=== PATIENT | male | born 1960 ===

== ENCOUNTER 2023-11-08 13:39 | Outpatient (REF) | payer OTHER, SELFPAY | END 2023-11-08 13:40 | disposition home or self-care (01) | LOC: HO.SH 13:39 | PROVIDERS: Visit Provider Physician Assistant Medical | DX: Z01.118 Encounter for examination of ears and hearing with other abnormal findings (principal); H90.3 Sensorineural hearing loss, bilateral; H93.13 Tinnitus, bilateral | CPT/HCPCS: 92557; 92567 ==

== ENCOUNTER 2025-05-05 11:49 | Outpatient (AMB) | payer OTHER, SELFPAY ==
--- OUTSIDE RECORDS SUMMARY | 2024-09-14 07:30 | XMS_ITS ---
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 Date/Time Encounter Type Encounter Description Reason Provider Source Sep 14, 2024 11:30 AM OFFICE O/P EST HI 40 MIN PRIMARY CARE/MEDICINE ICD-10-CM I10 Essential (primary) hypertension MOBLEY,WILL RENETTA Schmitz [facility] Encounter Template Text not used by MD Assessments - Encounter Diagnoses This section includes the primary and secondary diagnoses documented for the Encounter. Date/Time Primary/Secondary Diagnosis Diagnosis Name Provider Source Sep 14, 2024 12:55 PM PRIMARY Essential (primary) hypertension MOBLEY,WILL RENETTA J [facility] [place] [facility] Sep 14, 2024 12:55 PM SECONDARY Alcohol use, unspecified, uncomplicated MOBLEY,WILL RENETTA J MD [facility] [place] [facility] Sep 14, 2024 12:55 PM SECONDARY Depression, unspecified MOBLEY,WILL RENETTA J MD [facility] [place] [facility] Sep 14, 2024 12:55 PM SECONDARY Gastro-esophageal reflux disease without esophagitis MOBLEY,WILL RENETTA J [facility] [place] [facility] Sep 14, 2024 12:55 PM SECONDARY Hyperlipidemia, unspecified MOBLEY,WILL RENETTA J MD [facility] [place] [facility] Sep 14, 2024 12:55 PM SECONDARY Overweight MOBLEY,WILL RENETTA Schmitz MD [facility] [place] [facility] Sep 14, 2024 12:55 PM SECONDARY Unspecified osteoarthritis, unspecified site MOBLEY,WILL RENETAT Schmitz MD [facility] [place] [facility] Plan of Treatment: Future Appointments (+ 6 months) and Future Tests (+/- 45 days) The Plan of Treatment section includes future care activities for the patient from all [facility]. This section includes future appointments and future orders which are active, pending or scheduled. Future Appointments This section includes appointments that were scheduled to occur 6 months from the date of the Encounter, up to a maximum of 20 appointments. The data comes from all MD treatment facilities. Appointment Date/Time Appointment Type Appointme nt Facility Name Oct 09, 2024 11:00 AM AMBULATORY - PSYCHIATRY MD [facility] [place] [facility] Oct 09, 2024 01:30 PM AMBULATORY - MEDICINE MD C [facility] [place] [facility] Nov 25, 2024 11:30 AM AMBULATORY - MEDICINE MD C [facility] [place] [facility] January 06, 2025 10:00 AM AM[facility]ULATORY - NONE [facility] January 13, 2025 10:00 AM AMB[facility]ATORY - NONE [facility] January 13, 2025 11:30 AM AMBULATORY - MEDICINE MD C [facility] [place] [facility] January 20, 2025 10:00 AM AMBULATORY - NONE [facility] Feb 02, 2025 01:30 PM AMBULATORY - PSYCHIATRY [facility] [place] [facility] Feb 02, 2025 02:30 PM AMBULATORY - MEDICINE MD C [facility] [place] [facility] Feb 03, 2025 10:00 AM AMBULATORY - NONE [facility] Feb 03, 2025 12:00 PM AMBULATORY - MEDICINE MD C [facility] [place] [facility] Feb 10, 2025 10:00 AM AMB[facility]ATORY - NONE [facility] Feb 11, 2025 01:30 PM AMBULATORY - MEDICINE MD C [facility] [place] [facility] Feb 17, 2025 10:00 AM AMBULATORY - NONE [facility] Feb 24, 2025 10:00 AM [facility] - NONE [facility] Feb 25, 2025 03:30 PM AMBULATORY - MEDICINE [facility] Lab Results: +/- 30 days of the encounter This section includes the Chemistry and Hematology Lab Results on record with MD for the patient. Radiology Reports and Pathology Reports are provided separately, in subsequent sections. Lab Results This section contains the Chemistry/Hematology Results that were resulted 30 days before or 30 daysafter the date of the Encounter. Date/Time Source Result Type Result - Unit Interpretation Reference Range Specimen Type Comment Sep 14, 2024 12:09 PM [facility] CBC BLOOD Specimen Type: BLOOD No comment entered. Ordering Provider: NICKOLAS MOBLEY Report Released Date/Time: Sep 08, 2024 08:40 AM Reporting Lab: [address] [address] Performing Lab: [address] [address] WBC 7.11 10*3/uL 4.50-11.00 RBC 3.84 10*6/uL L 4.23-5.66 HGB 13.4 g/dL 12.8-17 HCT 37.8 L 39.2-50.4 MCV 98.4 fL 82-99 MCHC 35.4 g/dL H 30.8-35.1 PLT 259 10*3/uL 140-360 RDW-CV 11.7 L 12.0-16.0 MCH 34.9 pg H 26.2-32.6 Sep 14, 2024 12:09 PM [facility] BASIC METABOLIC PANEL (non-fasting) SERUM Spe cimen Type: SERUM No comment entered. Ordering Provider: NICKOLAS MOBLEY Report Released Date/Time: Sep 08, 2024 08:40 AM Reporting Lab: [address] [address] Performing Lab: [address] [address] UREA NITROGEN 14 mg/dL 7-25 GLUCOSE 121 mg/dL H 65-100 SODIUM 133 mmol/L L 135-145 POTASSIUM 4.3 mmol/L 3.5-5.0 CHLORIDE 95 mmol/L L 100-110 CO2 28 meq/L 20-30 CREATININE, Serum 1.25 mg/dL 0.50-1.40 eGFR(CKD-EPI 2020) 64 mL/min >60 Sep 14, 2024 12:09 PM [facility] LIPID PANEL, NON FASTING SERUM Specimen Type: SERUM No comment entered. Ordering Provider: NICKOLAS MOBLEY Report Released Date/Time: Sep 08, 2024 08:40 AM Reporting Lab: [facility] [address] [address] Performing Lab: [address] [address] CHOLESTEROL 238 mg/dL H TRIGLYCERIDE 106 mg/dL 0-150 LDL calculated 99 mg/dL 0-129 CHOL/HDL 2.0 HDL CHOLESTEROL 118 mg/dL H 40-60 Sep 14, 2024 12:09 PM [facility] PSA SERUM Specimen Type: SERUM No comment entered. Ordering Provider: NICKOLAS MOBLEY Report Released Date/Time: Sep 08, 2024 08:40 AM Reporting Lab: [facility] [address] [address] Performing Lab: [facility] [address] [address] PSA 3.27 ng/mL 0.00-4.00 Sep 14, 2024 12:09 PM [facility] LIVER FUNCTION SERUM Specimen Type: SERUM No comment entered. Ordering Provider: NICKOLAS MOBLEY Report Released Date/Time: Sep 08, 2024 08:40 AM Reporting Lab: [facility] [address] [address] Performing Lab: [address] [address] PROTEIN,TOTAL 8.2 g/dL 6.0-8.3 ALBUMIN 4.0 g/dL 3.5-5.0 ALKALINE PHOSPHATASE 66 U/L 40-150 AST 30 U/L 5-34 ALT 24 U/L BILIRUBIN, TOTAL 0.8 mg/dL 0.2-1.2 Sep 14, 2024 12:09 PM [facility] FERRITIN SERUM Specimen Type: SERUM No comment entered. Ordering Provider: NICKOLAS MOBLEY Report Released Date/Time: Sep 14, 2024 11:45 AM Reporting Lab: [facility] [address] [address] Performing Lab: [facility] [address] [address] FERRITIN 193 ng/mL 20-300 Sep 14, 2024 12:09 PM [facility] IRON & TIBC PANEL SERUM Specimen Type: SERUM No comment entered. Ordering Provider: NICKOLAS MOBLEY Report Released Date/Time: Sep 14, 2024 11:45 AM Reporting Lab: [facility] [address] [address] Performing Lab: [address] [address] TIBC 385 ug/dL 204-475 IRON 168 ug/dL H 40-160 Transferrin Saturation 43.6 20.0-50.0 Transferrin (TRF) 292 mg/dL 200-360 Vital Signs: All taken on the encounter date This section contains inpatient and outpatient Vital Signs collected on the date of the Encounter. Date/Time Temperature Pulse Blood Pressure Respiratory Rate SP02 Pain Height Weight Body Mass Index Source Sep 14, 2024 12:52 PM 148/90 [facility] Sep 14, 2024 11:26 AM 98.1 75 156/100 20 93 5 68 257 39 [facility] Social History: Smoking Status (Most current) and Tobacco Use (All prior to encounter date) This section includes the most current, and the historical, smoking and tobacco- related health factors from the MD facility where the Encounter took place. Current Smoking Status This section includes the most current smoking, or tobacco-related health factor, from the MD facility where the Encounter took place. Date/Time Current Smoking Status Comment Devin melvin Mar 17, 2024 09:29 AM VA-TOBACCO NEVER USED [facility] Advance Directives: All historical and current Section Date Range: From patient's date of to the date document was created. This section includes ALL of a patient's completed or amended VA Advance and Rescinded Directives. The entries below indicate that a directive exists for the patient, but an actual copy is not included with this document. The data comes from all MD facilities. Date Advance Directives Provider Source Apr 15, 2024 ADVANCE DIRECTIVE PATT BATISTA MD [facility] Encounter Notes: All associated encounter notes This section contains the clinical notes associated to the Encounter. Date/Time Encounter Note(s) Provider Source Sep 14, 2024 12:39 PM PRIMARY CARE NURSE PRACTITIONER OUTPATIENT NOTE: LOCAL TITLE: NURSE PRACTITIONER OUTPATIENT NOTE STANDARD TITLE: PRIMARY CARE NURSE PRACTITIONER OUTPATIENT NOTE DATE OF NOTE: SEP 14, 2024@12:39 ENTRY DATE: SEP 14, 2024@12:39:43 AUTHOR: NICKOLAS MOBLEY COSIGNER: URGENCY: STATUS: COMPLETED Chief complaint: Patient is a 64 year old . HPI: Pleasant male here to follow up. We discussed labs, including low sodium, again cautioned about alcohol, encouraged stopping it. He tells me he has reduced the amount he consumes, often going days without it. He was schedule for right hip replacement surgery though being held because of elevated blood pressure. I again explained the impact of alcohol and htn. He is in agreement with consult to CPP. He is also concerned about wt gain, asks about medication assisted wt loss. I advised he would first have to participate in a formal wt loss program, suggested MOVE, he is in agreement with referral. He was following in the community with Dr. Nj, no longer due to loss of insurance. I did write paper rx for omeprazole, atenolol, and lisinopril. Allergies: Patient has answered NKA The following VA and Non-VA meds were reconciled with patient. The patient was educated on the use of the medications including indication and side effects. Active and Recently Outpatient Medications (excluding Supplies): Active Non-VA Medications Status 1) Non-VA ATENOLOL 25MG TAB 25MG BY MOUTH ONCE DAILY ACTIVE Indication: FOR HIGH BLOOD PRESSURE 2) Non-VA BUPROPION HCL 200MG 12HR SA TAB 200MG BY MOUTH ONCE ACTIVE DAILY Indication: FOR DEPRESSION 3) Non-VA ESCITALOPRAM OXALATE 20MG TAB 20MG BY MOUTH ONCE ACTIVE DAILY Indication: FOR MAJOR DEPRESSIVE DISORDER 4) Non-VA LISINOPRIL 10MG TAB 30MG BY MOUTH ONCE DAILY ACTIVE Indication: FOR HIGH BLOOD PRESSURE 5) Non-VA LORAZEPAM 0.5MG TAB 0.5MG BY MOUTH ONCE DAILY ACTIVE NEEDED Indication: FOR ANXIETY 6) Non-VA OMEPRAZOLE 20MG EC CAP 20MG BY MOUTH EVERY MORNING 30 ACTIVE MINUTES BEFORE BREAKFAST Indication: FOR EXCESSIVE PRODUCTION OF STOMACH ACID 7) Non-VA TRAZODONE HCL 100MG TAB 200MG BY MOUTH AT BEDTIME ACTIVE Indication: FOR INSOMNIA ASSOCIATED WITH DEPRESSION Review of Systems: Constitutional: (-)for Fevers, chills, weakness, nights sweats On examination: 98.1 F [36.7 C] (09/14/2024 11:26)156/100 (09/14/2024 11:26)75 (09/14/2024 11:26)20 (09/14/2024 11:26)5 (09/14/2024 11:26)BMI: 39.2257 lb [116.57 kg] (09/14/2024 11:26) is alert and oriented X3 Cardiovasc: 2plus carotids without bruits, no JVD Heart Reguler rate and rhythm NL S1S2 no S3 or murmur Respiration: Normal respiratory effort, lungs clear ABD: Benign normal active bowel sounds no HSM no rebound or referred pain EXT: no clubbing, edema, or cyanosis All diagnostics from past month were reviewed with patient. Assessment/plan: Active problems - Computerized Problem List is the source for the followin. Hypertension - see above 2. Hyperlipidemia - labs today 3. Gastroesophageal reflux disease - stable on ppi 4. Depression - stable on meds, consult to . 5. Osteoarthritis - right hip, see above 6. overweight - see above 7. alcohol - see above Today I spent 40 minutes on some or all of the following: chart review, history, physical examination, treatment planning, education and counseling of the patient/family/career guidance counselor, placing orders, communicating with other health care providers, completing health and wellness screenings (see below) and documentation in the electronic health record. Follow up visit in 6 mos. HTN Assess for Elevated BP>=140/90: Repeat blood pressure: 148/90 Patient referred to [facility] pharmacist for hypertension treatment. Sexual Orientation: The patient thinks of their sexual orientation as: Straight or Heterosexual Medication Reconciliation: Outpatient: Has the patient been taking medications as documented in the EMLR? YES: The patient has been taking medications as documented in the EMLR. Essential Medication List for Review used to complete this medication reconciliation. INCLUDED IN THIS LIST: Alphabetical list of active outpatient prescriptions dispensed from this MD (local) and dispensed from another [facility] or [facility] facility (remote) as well as inpatient orders (local, pending and active), local clinic medications, locally documented non-VA medications, and local prescriptions that have or been discontinued in the past 90 days. - All changes in medications, including all non-VA/Herbal/OTC medications were entered into CPRS. - If there were any medications the patient should no longer take, they were discontinued. - The patient/caregiver was instructed to update this list, discard old lists, and take this list to the next appointment, whether with a VA or non-VA provider. /emiliano/ Nickolas Mobley [facility], BLOCK MAKING MACHINE OPERATOR-, CNL Primary Care Nurse Practitioner Signed: 09/14/2024 12:54 NICKOLAS MOBLEY [facility] Sep 14, 2024 11:33 AM PREVENTIVE MEDICINE NURSING NOTE: LOCAL TITLE: CLINICAL REMINDERS/NURSING STANDARD TITLE: PREVENTIVE MEDICINE NURSING NOTE DATE OF NOTE: SEP 14, 2024@11:33 ENTRY DATE: SEP 14, 2024@11:33:08 AUTHOR: EVAN AGUILAR EXP COSIGNER: URGENCY: STATUS: COMPLETED Influenza Immunization: The patient has received the seasonal influenza vaccine for the current season at another location. Documented: INFLUENZA, UNSPECIFIED FORMULATION Historical Date Administered: Jun 11, 2024 Outside Location: Outside Healthcare Provider Information Source: FROM PATIENT'S RECALL Comment: per statement from vet /emiliano/ Evan Aguilar, Health Muffle Operator MACHINING ENGINEER,PRIMARY CARE Signed: 09/14/2024 11:34 [facility]
--- OUTSIDE RECORDS SUMMARY | 2024-10-09 07:00 | XMS_ITS ---
Author Name [facility] [place] [facility] [place] [facility] [place] Address [address] [place] [id number] Care Team Providers Care Component Lab Tech Name Role Phone JENNY POND Primary Care Provider Unavaila ble Selected Encounter This section includes the information on record at [place] for the Encounter. Date/Time Encounter Type Encounter Description Reason Provider Source Oct 09, 2024 11:00 AM MTMS BY PHARM ADDNatanael [facility] - IND ICD-10-CM F32.A Depression, unspecified RAGUINDIN,JASP ER BRENDON D [facility] Encounter Template Text not used by [place] Assessments - Encounter Diagnoses This section includes the primary and secondary diagnoses documented for the Encounter. Date/Time Primary/Secondary Diagnosis Diagnosis Name Provider Source Oct 13, 2024 04:23 PM PRIMARY Depression, unspecified RAGUINDIN,JASP ER [facility]ENDON D [place] [facility] [place] [facility] Oct 13, 2024 04:23 PM SECONDARY Insomnia, unspecified RAGUINDIN,JASP ER [place] [facility] [place] [facility] Plan of Treatment: Future Appointments (+ 6 months) and Future Tests (+/- 45 days) The Plan of Treatment section includes future care activities for the patient from all [place] treatmentfacilities. This section includes future appointments and future orders which are active, pending or scheduled. Future Appointments This section includes appointments that were scheduled to occur 6 months from the date of the Encounter, up to a maximum of 20 appointments. The data comes from all [place] treatment facilities. Appointment Date/Time Appointment Type Appointme nt Facility Name Nov 25, 2024 11:30 AM [facility] [place] [facility] January 06, 2025 10:00 AM [facility] NONE [facility] January 13, 2025 10:00 AM [facility]ORY [facility] NONE [facility] January 13, 2025 11:30 AM [facility] [place] [facility] January 20, 2025 10:00 AM [facility]ORY [facility] NONE [facility] Feb 02, 2025 01:30 PM [place] [facility] [place] [facility] Feb 02, 2025 02:30 PM [place] [facility] [place] [facility] Feb 03, 2025 10:00 AM [facility]ORY [facility] NONE [facility] Feb 03, 2025 12:00 PM [place] [facility] [place] Feb 10, 2025 10:00 AM [facility]ORY [facility] NONE [facility] Feb 11, 2025 01:30 PM [place] [facility] [place] [facility] Feb 17, 2025 10:00 AM [facility]ORY [facility] NONE [facility] Feb 24, 2025 10:00 AM [facility]ORY - NONE [facility] Feb 25, 2025 03:30 PM [place] [facility] [place] Mar 15, 2025 01:00 PM [place] [facility] [place] Mar 17, 2025 10:00 AM [facility]ORY [facility] NONE [facility] Mar 23, 2025 02:30 PM [place] [facility] [place] [facility] Mar 24, 2025 10:00 AM [facility]ORY [facility] NONE [facility] Mar 24, 2025 01:00 PM [place] [facility] [place] [facility] Mar 31, 2025 10:00 AM AM[facility]ATORY - NONE [facility] Lab Results: +/- 30 days of the encounter This section includes the Chemistry and Hematology Lab Results on record with [place] for the patient. Radiology Reports and Pathology Reports are provided separately, in subsequent sections. Lab Results This section contains the Chemistry/Hematology Results that were resulted 30 days before or 30 daysafter the date of the Encounter. Date/Time Source Result Type Result - Unit Interpretation Reference Range Specimen Type Comment Oct 26, 2024 12:01 AM [facility] OCCULT BLOOD FIT X1 SCREEN (MFP ONLY) FECES S pecimen Type: FECES No comment entered. Ordering Provider: JENNY POND Report Released Date/Time: Sep 16, 2024 12:27 PM Reporting Lab: [address] [address] Performing Lab: [address] [address] OCCULT BLOOD (FIT)#1 OF 1 NEGATIVE NEG Sep 14, 2024 12:09 PM [facility] BASIC METABOLIC PANEL (non-fasting) SERUM Spe cimen Type: SERUM No comment entered. Ordering Provider: JENNY POND Report Released Date/Time: Sep 08, 2024 08:40 AM Reporting Lab: [address] [address] Performing Lab: [address] [address] UREA NITROGEN 14 mg/dL 7-25 GLUCOSE 121 mg/dL H 65-100 SODIUM 133 mmol/L L 135-145 POTASSIUM 4.3 mmol/L 3.5-5.0 CHLORIDE 95 mmol/L L 100-110 CO2 28 meq/L 20-30 CREATININE, Serum 1.25 mg/dL 0.50-1.40 eGFR(CKD-EPI 2020) 64 mL/min >60 Sep 14, 2024 12:09 PM [facility] CBC BLOOD Specimen Type: BLOOD No comment entered. Ordering Provider: JENNY POND Report Released Date/Time: Sep 08, 2024 08:40 AM Reporting Lab: [address] [address] Performing Lab: [address] [address] WBC 7.11 10*3/uL 4.50-11.00 RBC 3.84 10*6/uL L 4.23-5.66 HGB 13.4 g/dL 12.8-17 HCT 37.8 L 39.2-50.4 MCV 98.4 fL 82-99 MCHC 35.4 g/dL H 30.8-35.1 PLT 259 10*3/uL 140-360 RDW-CV 11.7 L 12.0-16.0 MCH 34.9 pg H 26.2-32.6 Sep 14, 2024 12:09 PM [facility] LIPID PANEL, NON FASTING SERUM Specimen Type: SERUM No comment entered. Ordering Provider: JENNY POND Report Released Date/Time: Sep 08, 2024 08:40 AM Reporting Lab: [address] [address] Performing Lab: [address] [address] CHOLESTEROL 238 mg/dL H TRIGLYCERIDE 106 mg/dL 0-150 LDL calculated 99 mg/dL 0-129 CHOL/HDL 2.0 HDL CHOLESTEROL 118 mg/dL H 40-60 Sep 14, 2024 12:09 PM [facility] LIVER FUNCTION SERUM Specimen Type: SERUM No comment entered. Ordering Provider: JENNY POND Report Released Date/Time: Sep 08, 2024 08:40 AM Reporting Lab: [address] [address] Performing Lab: [address] [address] PROTEIN,TOTAL 8.2 g/dL 6.0-8.3 ALBUMIN 4.0 g/dL 3.5-5.0 ALKALINE PHOSPHATASE 66 U/L 40-150 AST 30 U/L 5-34 ALT 24 U/L BILIRUBIN, TOTAL 0.8 mg/dL 0.2-1.2 Sep 14, 2024 12:09 PM [facility] PSA SERUM Specimen Type: SERUM No comment entered. Ordering Provider: JENNY POND Report Released Date/Time: Sep 08, 2024 08:40 AM Reporting Lab: [address] [address] Performing [facility]: [facility] [place] [facility] [address] [facility] [address] PSA 3.27 ng/mL 0.00-4.00 Sep 14, 2024 12:09 PM [facility] FERRITIN SERUM Specimen Type: SERUM No comment entered. Ordering Provider: JENNY POND Report Released Date/Time: Sep 14, 2024 11:45 AM Reporting Lab: [facility] [place] [facility] [address] [facility] [address] Performing Lab: [facility] [address] [facility] [address] FERRITIN 193 ng/mL 20-300 Sep 14, 2024 12:09 PM [facility] IRON & TIBC PANEL SERUM Specimen Type: SERUM No comment entered. Ordering Provider: JENNY POND Report Released Date/Time: Sep 14, 2024 11:45 AM Reporting Lab: [facility] [place] [facility] [address] [facility] [address] Performing Lab: [facility] [place] [facility] [address] [facility] [address] TIBC 385 ug/dL 204-475 IRON 168 ug/dL H 40-160 Transferrin Saturation 43.6 20.0-50.0 Transferrin (TRF) 292 mg/dL 200-360 Vital Signs: All taken on the encounter date This section contains inpatient and outpatient Vital Signs collected on the date of the Encounter. Date/Time Temperature Pulse Blood Pressure Respiratory Rate SP02 Pain Height Weight Body Mass Index Source Oct 09, 2024 01:32 PM 182/110 [facility] [place] [facility] [facility] Oct 09, 2024 01:29 PM 97 186/127 [place] [facility] [place] [facility] Oct 09, 2024 01:25 PM 96 198/98 [facility] [place] [facility] Oct 09, 2024 01:21 PM 94 183/114 [place] [facility] [place] [facility] [facility] Social History: Smoking Status (Most current) and Tobacco Use (All prior to encounter date) This section includes the most current, and the historical, smoking and tobacco- related health factors from the [place] facility where the Encounter took place. Current Smoking Status This section includes the most current smoking, or tobacco-related health factor, from the [place] facility where the Encounter took place. Date/Time Current Smoking Status Comment Facil ity Mar 17, 2024 09:29 AM VA-TOBACCO NEVER USED [facility] Advance Directives: All historical and current Section Date Range: From patient's date of to the date document was created. This section includes ALL of a patient's completed or amended [place] Advance and Rescinded Directives. The entries below indicate that a directive exists for the patient, but an actual copy is not included with this document. The data comes from all [place] facilities. Date Advance Directives Provider Source Apr 15, 2024 ADVANCE DIRECTIVE PATT BATISTA [facility] Encounter Notes: All associated encounter notes This section contains the clinical notes associated to the Encounter. Date/Time Encounter Note(s) Provider Source Oct 09, 2024 11:07 AM MENTAL HEALTH CONSULT: LOCAL TITLE: MENTAL HEALTH CONSULT NOTE STANDARD TITLE: MENTAL HEALTH CONSULT DATE OF NOTE: OCT 09, 2024@11:07 ENTRY DATE: OCT 09, 2024@11:07:19 AUTHOR: DELL THOMASON COSIGNER: URGENCY: STATUS: COMPLETED Program: Clinical Pharmacy Provider/Medication Management Speciality: Mental Health ATTENDED BY: [X] Patient [ ] Spouse/Caregiver LENGTH OF SESSION: 60minutes -=-=-=-=-=-=-=-=-=-=-=-=-= -=-=-=-=-=-=-==-=-=-=-=-=- =-=-=-=-=-=-=-=-=-=-=-=-=- =- Name: CALVIN BOSS IV : December ID: 64yo WHITE MALE -=-=-=-=-=-=-=-=-=-=-=-=-= -=-=-=-=-=-=-==-=-=-=-=-=- =-=-=-=-=-=-=-=-=Subjectiv e- Treating Dx(s): Depression and Insomnia Interview Summary: pt w/out CC upon interview. noted that pt [facility] today is first visit w/ health science writer and reports that he has been doing well on his current regimen. mentions that he has been retired now for 3yrs. med rec completed and updated into non-va med list. main concerns are regarding pending hip replacement surgery that has been postponed d/t high BP which he is now currently working toward improving w/ PC. additionally, because of hip pain, reports difficulty w/ ambulating resulting in weight gain for the past 3-6mo; and that low activity is causing him difficulty w/ sleep. medications reviewed and education provided. noted minimal use of lorazepam, stating it's my last resort , and discussed importance of not taking lorazepam w/ alcohol; to not share this with others; and to keep stored in a safe place. discussed dose reduction and change in formulation of bupropion as this may be contributing to poor sleep and high BP, to which pt agreed. denies AH/VH. denies SI. reports SI ~30yrs ago but denies SA. aware to contact the crisis line should he find himself in a crisis. Mood: okay denies being depressed Sleep: poor recently d/t Apetite: just not hungry during the morning reports the following regarding medications: -N--Y- [ ][X] Adherence/Compliance [X][ ] Adverse Drug Reactions [ ][X] New OTC/Herbal/Supplement(s) - advil PM for pain at night SUBSTANCE USE ASSESSMENT [ ] Denies All [ ] Nicotine [ ] Caffeine [X] Alcohol - vodka drinks 3-4x/night [ ] Cannabis [ ] Other Illicit Substances __ -=-=-=-=-=-=-=-=-=-=-=-=-= -=-=-=-=-=-=-==-=-=-=-=-=- =-=-=-=-=-=-=-=-=-Objectiv e- Mental Status Exam Appearance: [X] Unremarkable [X] Appropriate to season [ ] Neatly groomed [ ] Somewhat disheveled [ ] Other: Behavior Mood/Affect: [X] Appropriate [ ] Irritable [X] Normal [ ] Euphoric [ ] Pleasant [ ] Provocative [ ] Bright [ ] Depressed [ ] Anxious [ ] Frustrated [ ] Anxious [ ] Frustrated [ ] Maintained good eye contact [ ] Restricted [ ] Flat [ ] Other: [ ] Subdued [ ] Unremarkable [ ] Responsive & Congruent w/mood Energy: [ ] Other: [X] Normal [ ] Excessive [ ] Lethargic [ ] Variable Sleep: [ ] Other: [X] Normal [ ] Early awakening [ ] Sleep onset insomnia -N--Y- Orientation to: [ ] Frequent disruption [ ][X] Person [ ][X] Place Speech: [ ][X] Time [X] Normal [ ] Rapid [ ] Loud [ ] Flat [ ] Slow [ ] Soft Stream of thought: [ ] Other: [X] Normal [ ] Confused [ ] Tangential [ ] Derailed Insight/Judgment: [ ] Vague [ ] Repetitive [X] Normal [ ] Impaired [ ] No evidence of thought disorder [ ] No overt psychosis Other cognitive problems: [ ] Denies Flashbacks [X] Cognition intact [ ] Denies AH/VH [X] Logical and Linear [ ] Obsessions [ ] Paranoid/Delusions [X] Memory sufficient for interview [ ] Hallucinations: [ ] None [ ] Visuospatial [ ] Flashbacks: [ ] Attention [ ] Judgment [ ] Other: [ ] Abstraction __ Active problems - Computerized Problem List is the source for the followin. Alcohol intake above recommended sensible limits 2. Exposure to potentially hazardous substance 3. Allergic rhinitis 4. Insomnia 5. Hypertension 6. Hyperlipidemia 7. Gastroesophageal reflux disease 8. Depression 9. Osteoarthritis 10. History of total hip arthroplasty __ ALLERGIES: Patient has answered NKA Active Outpatient Medications (including Supplies): Active Non-VA Medications Status 1) Non-VA [...] ACTIVE Indication: FOR INSOMNIA ASSOCIATED WITH DEPRESSION Active and Recently Outpatient Medications (excluding Supplies): [...] ACTIVE Indication: FOR INSOMNIA ASSOCIATED WITH DEPRESSION Past psychiatric medications include the following: [ ] Per CPRS: n/a [X] Per Patient: - bupropion 12hr SA 200mg bid x25yrs - escitalopram 20mg daily x1yrs, but uncertain whether this has been helpful - trazodone 200mg hs prn but I take it most nights - lorazepam 0.5mg hs prn but I don't take it every night if I don't need it __ Vitals: Ht: 68 in [172.7 cm] (09/14/2024 11:26) Wt: 257 lb [116.57 kg] (09/14/2024 11:26) BMI: 39.2 BP: 148/90 (09/14/2024 12:52) HR: 75 (09/14/2024 11:26) Labs: CHEM 7 TREND LAB CUMULATIVE SELECTED Collection DT Spec GLUCOSE BUN CREATIN Sodium K+/Pot CL CO2 09/14/2024 12:09 SERUM 121 H 14 1.25 133 L 4.3 95 L 28 04/15/2024 14:31 SERUM 109 H 13 1.30 123 L* 5.1 H 88 L 25 LIVER PANEL TREND Collection DT Spec AST ALT T BILI ALK DENNIS T. PROT ALBUMIN 09/14/2024 12:09 SERUM 30 24 0.8 66 8.2 4.0 04/15/2024 14:31 SERUM 51 H 56 H 0.6 62 7.4 4.1 CBC TREND Collection DT Spec WBC RBC HGB HCT MCV MCH PLT 09/14/2024 12:09 BLOOD 7.11 3.84 L 13.4 37.8 L 98.4 34.9 H 259 04/15/2024 14:31 BLOOD 6.17 3.54 L 12.1 L 34.3 L 96.9 34.2 H 248 LIPID PANEL TREND Collection DT Spec CHOL HDL CHO/HDL LDL-c TRIG 09/14/2024 12:09 SERUM 238 H 118 H 2.0 99 106 04/15/2024 14:31 SERUM 178 91 H 2.0 80 34 HEMOGLOBIN A1C TREND Collection DT Spec HGBA1c 04/15/2024 14:31 BLOOD 4.7 EKG: n/a Estimated CrCl (based on IBW): ~58mL/min -=-=-=-=-=-=-=-=-=-=-=-=-= -=-=-=-=-=-=-==-=-=-=-=-=- =-=-=-=-=-=-=-=-=-=-=-=-=- =- ASSESSMENT The following review of all active psychotropic and A[employer] CONSULTANT-active agents is to ensure pharmacotherapy is evaluated for safety and efficacy as they relate to behaviorial and physiological changes and outcomes Depression - bupropion 12hr SA 200mg bid > noted concern for uncontrolled BP; possibly contributing. will trial reduced dose - escitalopram 20mg daily - lorazepam 0.5mg daily prn anxiety Insomnia - trazodone 200mg hs PLAN 1. Pharmacotherapy [ ] No changes [ ] Discontinue: [ ] Initiate: [X] Change the following: reduce/change bupropion to 24hr SA 300mg daily 2. Labs/tests: n/a 3. Consult(s) or Coordination of care: n/a 4. Other: n/a Education was provided to the regarding the above medication(s) risks, benefits, and alternatives; adverse drug reactions; expectations; and instructions for use. Findings/Plan was discussed with the patient and/or caregiver(s) whom provided verbal acknowledgement that the findings/plan was understood. The following counseling was specifically provided: [ ] Lab tests reviewed with patient [X] Instruction for management/treatment and/or follow-up [X] Importance of compliance with chosen treatment options [X] Risk Factor Reduction [ ] Other: RTC Interval: every 8-12weeks Next Apt: tbd Henrietta was provided health science writer's contact information and instructed to contact health science writer as needed for any changes to scheduling or concerns otherwise. is aware of actions to take if they feel unsafe, including calling the 's Crisis Line (#[phone]); calling 911; or going to the nearest urgent care or emergency room. The is also aware of how to contact the clinic should the require additional services prior to the next appointment. Time spent on chart review, session, and documentation: 60minutes /es/ Dell Thomason PharmD Clinical Pharmacist Practitioner Signed: 10/14/2024 08:38 DELL THOMASON [place] [facility]
--- OUTSIDE RECORDS SUMMARY | 2024-10-09 09:30 | XMS_ITS ---
Author Name [facility] Organization [facility] [place] Address [address] [place] [id number] Care Team Providers Care House Visitor Name Role Phone JENNY POND Primary Care Provider Unavaila ble Selected Encounter This section includes the information on record at [place] for the Encounter. Date/Time Encounter Type Encounter Description Reason Provider Source Oct 09, 2024 01:30 PM MTMS BY PHARM ADDL 15 MIN CLINICAL PHARMACY ICD-10-CM I10 Essential (primary) hypertension HUY MCADAMS Zach Encounter Template Text not used by [place] Assessments - Encounter Diagnoses This section includes the primary and secondary diagnoses documented for the Encounter. Date/Time Primary/Secondary Diagnosis Diagnosis Name Provider Source Oct 09, 2024 03:05 PM PRIMARY Essential (primary) hypertension HYU MCADAMS [facility] Plan of Treatment: Future Appointments (+ 6 months) and Future Tests (+/- 45 days) The Plan of Treatment section includes future care activities for the patient from all [place] treatmentfacilities. This section includes future appointments and future orders which are active, pending or scheduled. Future Appointments This section includes appointments that were scheduled to occur 6 months from the date of the Encounter, up to a maximum of 20 appointments. The data comes from all [place] treatment facilities. Appointment Date/Time Appointment Type Appointme nt Facility Name Nov 25, 2024 11:30 AM AMBULATORY - MEDICINE [facility] January 06, 2025 10:00 AM AMBULATORY - NONE [facility] January 13, 2025 10:00 AM AMBULATORY - NONE [facility] January 13, 2025 11:30 AM [facility] [place] [facility] January 20, 2025 10:00 AM AMBULATORY - NONE [facility] Feb 02, 2025 01:30 PM AMBULATORY - PSYCHIATRY [facility] [place] [facility] Feb 02, 2025 02:30 PM AMBULATORY [facility] MEDICINE [facility] [place] [facility] Feb 03, 2025 10:00 AM AMBULATORY - NONE [facility] Feb 03, 2025 12:00 PM [facility]ULATORY [facility] [place] [facility] Feb 10, 2025 10:00 AM AMBULATORY - NONE [facility] Feb 11, 2025 01:30 PM AMBULATORY - MEDICINE [facility] [place] [facility] Feb 17, 2025 10:00 AM AMBULATORY - NONE [facility] Feb 24, 2025 10:00 AM AMBULATORY - NONE [facility] Feb 25, 2025 03:30 PM AMBULATORY - MEDICINE [facility] [place] [facility] Mar 15, 2025 01:00 PM AMBULATORY - MEDICINE [facility] [place] [facility] Mar 17, 2025 10:00 AM AMBULATORY - NONE [facility] Mar 23, 2025 02:30 PM AMBULATORY - PS[facility]CHIATRY [facility] [place] [facility] Mar 24, 2025 10:00 AM AMBULATORY - NONE [facility] Mar 24, 2025 01:00 PM AMBULATORY - MEDICINE [facility] [place] [facility] Mar 31, 2025 10:00 AM AMBULATORY - NONE [facility] Lab Results: +/- 30 days of the encounter This section includes the Chemistry and Hematology Lab Results on record with [place] for the patient. Radiology Reports and Pathology Reports are provided separately, in subsequent sections. Lab Results This section contains the Chemistry/Hematology Results that were resulted 30 days before or 30 daysafter the date of the Encounter. Date/Time Source Result Type Result - Unit Interpretation Reference Range Specimen Type Comment Oct 26, 2024 12:01 AM [facility] [place] [facility] OCCULT BLOOD FIT X1 SCREEN (MFP ONLY) FECES S pecimen Type: FECES No comment entered. Ordering Provider: JENNY POND Report Released Date/Time: Sep 16, 2024 12:27 PM Reporting Lab: [address] [address] Performing Lab: [address] [address] OCCULT BLOOD (FIT)#1 OF 1 NEGATIVE NEG Sep 14, 2024 12:09 PM [facility] BASIC METABOLIC PANEL (non-fasting) SERUM Spe cimen Type: SERUM No comment entered. Ordering Provider: JENNY POND Report Released Date/Time: Sep 08, 2024 08:40 AM Reporting Lab: [address] [address] Performing Lab: [address] [address] UREA NITROGEN 14 mg/dL 7-25 GLUCOSE 121 mg/dL H 65-100 SODIUM 133 mmol/L L 135-145 POTASSIUM 4.3 mmol/L 3.5-5.0 CHLORIDE 95 mmol/L L 100-110 CO2 28 meq/L 20-30 CREATININE, Serum 1.25 mg/dL 0.50-1.40 eGFR(CKD-EPI 2020) 64 mL/min >60 Sep 14, 2024 12:09 PM [facility] CBC BLOOD Specimen Type: BLOOD No comment entered. Ordering Provider: JENNY POND Report Released Date/Time: Sep 08, 2024 08:40 AM Reporting Lab: [address] [address] Performing Lab: [address] [address] WBC 7.11 10*3/uL 4.50-11.00 RBC 3.84 10*6/uL L 4.23-5.66 HGB 13.4 g/dL 12.8-17 HCT 37.8 L 39.2-50.4 MCV 98.4 fL 82-99 MCHC 35.4 g/dL H 30.8-35.1 PLT 259 10*3/uL 140-360 RDW-CV 11.7 L 12.0-16.0 MCH 34.9 pg H 26.2-32.6 Sep 14, 2024 12:09 PM [facility] LIPID PANEL, NON FASTING SERUM Specimen Type: SERUM No comment entered. Ordering Provider: JENNY POND Report Released Date/Time: Sep 08, 2024 08:40 AM Reporting Lab: [facility] [address] [facility] [address] Performing Lab: [address] [address] CHOLESTEROL 238 mg/dL H TRIGLYCERIDE 106 mg/dL 0-150 LDL calculated 99 mg/dL 0-129 CHOL/HDL 2.0 HDL CHOLESTEROL 118 mg/dL H 40-60 Sep 14, 2024 12:09 PM [facility] LIVER FUNCTION SERUM Specimen Type: SERUM No comment entered. Ordering Provider: JENNY POND Report Released Date/Time: Sep 08, 2024 08:40 AM Reporting Lab: [address] [address] Performing Lab: [address] [address] PROTEIN,TOTAL 8.2 g/dL 6.0-8.3 ALBUMIN 4.0 g/dL 3.5-5.0 ALKALINE PHOSPHATASE 66 U/L 40-150 AST 30 U/L 5-34 ALT 24 U/L BILIRUBIN, TOTAL 0.8 mg/dL 0.2-1.2 Sep 14, 2024 12:09 PM [facility] PSA SERUM Specimen Type: SERUM No comment entered. Ordering Provider: JENNY POND Report Released Date/Time: Sep 08, 2024 08:40 AM Reporting Lab: [address] [address] Performing Lab: [address] [address] PSA 3.27 ng/mL 0.00-4.00 Sep 14, 2024 12:09 PM [facility] FERRITIN SERUM Specimen Type: SERUM No comment entered. Ordering Provider: JENNY POND Report Released Date/Time: Sep 14, 2024 11:45 AM Reporting Lab: [facility] [address] [facility] [address] Performing Lab: [facility] [address] [facility] [address] FERRITIN 193 ng/mL 20-300 Sep 14, 2024 12:09 PM [facility] IRON & TIBC PANEL SERUM Specimen Type: SERUM No comment entered. Ordering Provider: JENNY POND Report Released Date/Time: Sep 14, 2024 11:45 AM Reporting Lab: [facility] [address] [facility] [address] Performing Lab: [facility] [address] [facility] [address] TIBC 385 ug/dL 204-475 IRON 168 ug/dL H 40-160 Transferrin Saturation 43.6 20.0-50.0 Transferrin (TRF) 292 mg/dL 200-360 Vital Signs: All taken on the encounter date This section contains inpatient and outpatient Vital Signs collected on the date of the Encounter. Date/Time Temperature Pulse Blood Pressure Respiratory Rate SP02 Pain Height Weight Body Mass Index Source Oct 09, 2024 01:32 PM 182/110 [facility] [place] [facility] Oct 09, 2024 01:29 PM 97 186/127 [facility] [place] [facility] Oct 09, 2024 01:25 PM 96 198/98 [facility] [place] [facility] Oct 09, 2024 01:21 PM 94 183/114 [facility] [place] [facility] Social History: Smoking Status (Most current) and Tobacco Use (All prior to encounter date) This section includes the most current, and the historical, smoking and tobacco- related health factors from the [place] facility where the Encounter took place. Current Smoking Status This section includes the most current smoking, or tobacco-related health factor, from the [place] facility where the Encounter took place. Date/Time Current Smoking Status Comment Facil ity Mar 17, 2024 09:29 AM VA-TOBACCO NEVER USED [facility] Advance Directives: All historical and current Section Date Range: From patient's date of to the date document was created. This section includes ALL of a patient's completed or amended [place] Advance and Rescinded Directives. The entries below indicate that a directive exists for the patient, but an actual copy is not included with this document. The data comes from all [place] facilities. Date Advance Directives Provider Source Apr 15, 2024 ADVANCE DIRECTIVE PATT [facility]ISTA [facility] Encounter Notes: All associated encounter notes This section contains the clinical notes associated to the Encounter. Date/Time Encounter Note(s) Provider Source Oct 09, 2024 03:06 PM ADDENDUM: LOCAL TITLE: Addendum STANDARD TITLE: ADDENDUM DATE OF NOTE: OCT 09, 2024@15:06:11 ENTRY DATE: OCT 09, 2024@15:06:12 AUTHOR: HUY MCADAMS EXP COSIGNER: URGENCY: STATUS: COMPLETED Will ask AMSA to please schedule patient for: [X] [facility] PHARM PACT 3 RTC order placed. Appointment Length: _30__ minutes. 11/25/24 @1130 Thank you! /pascual MCADAMS PHARMD,[facility] CLINICAL PHARMACY PRACTITIONER Signed: 10/09/2024 15:06 Receipt Acknowledged By: 10/12/2024 07:57 /es/ CARA CARDOSO ADVANCED STONE OPERATOR --- Original Document --- 10/09/24 CONSULT REPORT/PHARMACY: CALVIN RE MALIK BOSS, 64 yo WHITE MALE, presents for [id number] initial visit for htn management. Today, pt reports HTN for 25 years, then took meds for years and never had issues with elevated numbers. In July he planned to have hip surgery which was cancelled d/t elevated BP. He drinks almost daily at bars, never at home. When asked about reducing alcohol use pt responded I'm an alcoholic and I can't quit . He notes his daughter and grandkids moved in recently, so a bit busy in his household. He came to this visit after seeing MH provider. He denies any blurred vision, chest discomfort, headache, shortness of breath,or any other current issues. He seems anxious when asked questions about his alcohol usage and in discussion of his previous low sodium level. Current htn medications: - lisinopril 10 mg increased to 30 mg in July qPM - atenolol 25 mg qPM Medication Adherence: - never misses Headaches:denies Chest pain:denies SOB:sometimes just sitting - misses breath- experiecing for a few months- thinks weight related. SOB upon exertion: sometimes Dizziness:denies Frequency of urination: twice Diet Patterns: patient eats on avg. 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[employer] Personal Goals: SMBP: 10/09/24: 170/112 SMBP assessment: above goal Allergies/ADR: Patient has answered NKA Active and Recently Outpatient Medications (including Supplies): Active Outpatient Medications Status 1) BUPROPION HCL 300MG 24HR SA TAB TAKE ONE TABLET BY MOUTH ACTIVE ONCE DAILY Indication: FOR MAJOR DEPRESSIVE DISORDER 2) ESCITALOPRAM OXALATE 20MG TAB TAKE ONE TABLET BY MOUTH ONCE ACTIVE DAILY FOR MOOD/DEPRESSION Indication: FOR MAJOR DEPRESSIVE DISORDER 3) TRAZODONE HCL 100MG TAB TAKE TWO TABLETS BY MOUTH AT BEDTIME ACTIVE Indication: FOR MAJOR DEPRESSIVE DISORDER Active Non-VA Medications Status 1) Non-VA ATENOLOL 25MG TAB 25MG BY MOUTH ONCE DAILY ACTIVE Indication: FOR HIGH BLOOD PRESSURE 2) Non-VA IBUPROFEN TAB ADVIL PM BY MOUTH NEEDED ACTIVE 3) Non-VA LISINOPRIL 10MG TAB 30MG BY MOUTH ONCE DAILY ACTIVE Indication: FOR HIGH BLOOD PRESSURE 4) Non-VA LORAZEPAM 0.5MG TAB 0.5MG BY MOUTH ONCE DAILY ACTIVE NEEDED Indication: FOR ANXIETY 5) Non-VA MULTIVITAMIN CAP/TAB 1 TABLET BY MOUTH ACTIVE 6) Non-VA OMEPRAZOLE 20MG EC CAP 20MG BY MOUTH EVERY MORNING 30 ACTIVE MINUTES BEFORE BREAKFAST Indication: FOR EXCESSIVE PRODUCTION OF STOMACH ACID 7) Non-VA OTHER CAP/TAB ARTICHOKE 800MG BY MOUTH ACTIVE 8) Non-VA OTHER CAP/TAB SUPER BEETS BY MOUTH ACTIVE 9) Non-VA OTHER CAP/TAB SUPER FRUIT/VEGGIES BY MOUTH ACTIVE 10) Non-VA VITAMIN B COMPLEX CAP 1 CAPSULE BY MOUTH ACTIVE Inactive Non-VA Medications Status 1) Non-VA BUPROPION HCL 200MG 12HR SA TAB 200MG BY MOUTH ONCE DISCONTINUED DAILY Indication: FOR DEPRESSION 2) Non-VA BUPROPION HCL 200MG 12HR SA TAB 200MG BY MOUTH TWICE DISCONTINUED DAILY Indication: FOR DEPRESSION 3) Non-VA ESCITALOPRAM OXALATE 20MG TAB 20MG BY MOUTH ONCE DISCONTINUED DAILY Indication: FOR MAJOR DEPRESSIVE DISORDER 4) Non-VA LISINOPRIL 5MG TAB 5MG BY MOUTH ONCE DAILY DISCONTINUED Indication: FOR HIGH BLOOD PRESSURE 5) Non-VA TRAZODONE HCL 100MG TAB 200MG BY MOUTH AT BEDTIME DISCONTINUED Indication: FOR INSOMNIA ASSOCIATED WITH DEPRESSION 18 Total Medications Labs: CHEM 7 TREND LAB CUMULATIVE SELECTED Collection DT Spec GLUCOSE BUN CREATIN Sodium K+/Pot CL CO2 09/14/2024 12:09 SERUM 121 H 14 1.25 133 L 4.3 95 L 28 04/15/2024 14:31 SERUM 109 H 13 1.30 123 L* 5.1 H 88 L 25 LAB CUMULATIVE SELECTED 2 No selection items chosen for this component. CHEM 7 Results Collection DT Spec Sodium K+/Pot CL CO2 GLUCOSE BUN 09/14/2024 12:09 SERUM 133 L 4.3 95 L 28 121 H 14 04/15/2024 14:31 SERUM 123 L* 5.1 H 88 L 25 109 H 13 eGFR CKD-EPI 202009/14/24 12:09 64 SERUM LIVER PANEL TREND Collection DT Spec AST ALT T BILI ALK DENNIS T. PROT ALBUMIN 09/14/2024 12:09 SERUM 30 24 0.8 66 8.2 4.0 04/15/2024 14:31 SERUM 51 H 56 H 0.6 62 7.4 4.1 HEMOGLOBIN A1C TREND Collection DT Spec HGBA1c 04/15/2024 14:31 BLOOD 4.7 LIPID PANEL TREND Collection DT Spec CHOL HDL CHO/HDL LDL-c TRIG 09/14/2024 12:09 SERUM 238 H 118 H 2.0 99 106 04/15/2024 14:31 SERUM 178 91 H 2.0 80 34 Vitals: Ht: 68 in [172.7 cm] (09/14/2024 11:26) Wt: 257 lb [116.57 kg] (09/14/2024 11:26) BMI: BMI: 39.2 ASSESSMENT: Goal BP = <130/80 mmHg In office BP readings: SBP DBP HR 183 114 94 198 98 96 186 127 97 182 110 Manual Average 187 112 96 PLAN:Pt has elevated BP, possibly more increased at the moment due to nature of office visit and discussion of alcohol use. Encouraged to decrease alcohol use. Reviewed risks of excessive alcohol use and low sodium. Reviewed options at [place] to discuss and work on alcohol use with provider when pt is ready. Reviewed healthy eating. Reviewed proper BP technique. Recommended pt to contact CPP within 2 weeks if BP remains elevated, direct ext provided. Reviewed warning signs to seek ER or Urgent services. Pt declines picking up medication today, although CPP advised it would be in his best interest to do so. Pt requests to be seen in office in about 6 weeks. - Medication management: - CONTINUE - lisinopril 10 mg increased to 30 mg in July qPM -CONTINUE - atenolol 25 mg qPM -INITIATE - amlodipine 5 mg qAM - Continue to SMBP- pt to check daily - Healthy dietary and lifestyle modifications encouraged - Labs:PRN EDUCATION -A shared decision-making approach was used in the development of this plan, involving the , clinician, and any caregivers present. The was provided the opportunity express questions or concerns, and the plan was adjusted as needed to address these concerns. -Reviewed with any new medications, changes to the medication list, education, and plan from today's visit. Patient (and/or caregiver) verbalized understanding of the plan, including possible known risks and benefits, and had no additional questions. RTC:11/25/24 @1130 Time Spent:45 mins PBM PharmD Pharmacotherapy Rem V12: PHARMACIST INTERVENTIONS: HYPERTENSION Medication Intervention(s) Initiate new medication /emiliano/ HUY MCADAMS PHARMD,[facility] CLINICAL PHARMACY PRACTITIONER Signed: 10/09/2024 15:06 HUY MCADAMS [facility] [place] [facility] Oct 09, 2024 01:01 PM PHARMACY CONSULT: LOCAL TITLE: CONSULT REPORT/PHARMACY STANDARD TITLE: PHARMACY CONSULT DATE OF NOTE: OCT 09, 2024@13:01 ENTRY DATE: OCT 09, 2024@13:01:53 AUTHOR: HUY MCADAMS EXP COSIGNER: URGENCY: STATUS: COMPLETED CONSULT REPORT/PHARMACY Has ADDENDA CALVIN BOSS, 64 yo WHITE MALE, presents for [id number] initial visit for htn management. Today, pt reports HTN for 25 years, then took meds for years and never had issues with elevated numbers. In July he planned to have hip surgery which was cancelled d/t elevated BP. He drinks almost daily at bars, never at home. When asked about reducing alcohol use pt responded I'm an alcoholic and I can't quit . He notes his daughter and grandkids moved in recently, so a bit busy in his household. He came to this visit after seeing MH provider. He denies any blurred vision, chest discomfort, headache, shortness of breath,or any other current issues. He seems anxious when asked questions about his alcohol usage and in discussion of his previous low sodium level. Current htn medications: - lisinopril 10 mg increased to 30 mg in July qPM - atenolol 25 mg qPM Medication Adherence: - never misses Headaches:denies Chest pain:denies SOB:sometimes just sitting - misses breath- experiecing for a few months- thinks weight related. SOB upon exertion: sometimes Dizziness:denies Frequency of urination: twice Diet Patterns: patient eats on avg. 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[employer] Personal Goals: SMBP: 10/09/24: 170/112 SMBP assessment: above goal Allergies/ADR: Patient has answered NKA Active and Recently Outpatient Medications (including Supplies): Active Outpatient Medications Status 1) BUPROPION HCL 300MG 24HR SA TAB TAKE ONE TABLET BY MOUTH ACTIVE ONCE DAILY Indication: FOR MAJOR DEPRESSIVE DISORDER 2) ESCITALOPRAM OXALATE 20MG TAB TAKE ONE TABLET BY MOUTH ONCE ACTIVE DAILY FOR MOOD/DEPRESSION Indication: FOR MAJOR DEPRESSIVE DISORDER 3) TRAZODONE HCL 100MG TAB TAKE TWO TABLETS BY MOUTH AT BEDTIME ACTIVE Indication: FOR MAJOR DEPRESSIVE DISORDER Active Non-VA Medications Status 1) Non-VA ATENOLOL 25MG TAB 25MG BY MOUTH ONCE DAILY ACTIVE Indication: FOR HIGH BLOOD PRESSURE 2) Non-VA IBUPROFEN TAB ADVIL PM BY MOUTH NEEDED ACTIVE 3) Non-VA LISINOPRIL 10MG TAB 30MG BY MOUTH ONCE DAILY ACTIVE Indication: FOR HIGH BLOOD PRESSURE 4) Non-VA LORAZEPAM 0.5MG TAB 0.5MG BY MOUTH ONCE DAILY ACTIVE NEEDED Indication: FOR ANXIETY 5) Non-VA MULTIVITAMIN CAP/TAB 1 TABLET BY MOUTH ACTIVE 6) Non-VA OMEPRAZOLE 20MG EC CAP 20MG BY MOUTH EVERY MORNING 30 ACTIVE MINUTES BEFORE BREAKFAST Indication: FOR EXCESSIVE PRODUCTION OF STOMACH ACID 7) Non-VA OTHER CAP/TAB ARTICHOKE 800MG BY MOUTH ACTIVE 8) Non-VA OTHER CAP/TAB SUPER BEETS BY MOUTH ACTIVE 9) Non-VA OTHER CAP/TAB SUPER FRUIT/VEGGIES BY MOUTH ACTIVE 10) Non-VA VITAMIN B COMPLEX CAP 1 CAPSULE BY MOUTH ACTIVE Inactive Non-VA Medications Status 1) Non-VA BUPROPION HCL 200MG 12HR SA TAB 200MG BY MOUTH ONCE DISCONTINUED DAILY Indication: FOR DEPRESSION 2) Non-VA BUPROPION HCL 200MG 12HR SA TAB 200MG BY MOUTH TWICE DISCONTINUED DAILY Indication: FOR DEPRESSION 3) Non-VA ESCITALOPRAM OXALATE 20MG TAB 20MG BY MOUTH ONCE DISCONTINUED DAILY Indication: FOR MAJOR DEPRESSIVE DISORDER 4) Non-VA LISINOPRIL 5MG TAB 5MG BY MOUTH ONCE DAILY DISCONTINUED Indication: FOR HIGH BLOOD PRESSURE 5) Non-VA TRAZODONE HCL 100MG TAB 200MG BY MOUTH AT BEDTIME DISCONTINUED Indication: FOR INSOMNIA ASSOCIATED WITH DEPRESSION 18 Total Medications Labs: CHEM 7 TREND LAB CUMULATIVE SELECTED Collection DT Spec GLUCOSE BUN CREATIN Sodium K+/Pot CL CO2 09/14/2024 12:09 SERUM 121 H 14 1.25 133 L 4.3 95 L 28 04/15/2024 14:31 SERUM 109 H 13 1.30 123 L* 5.1 H 88 L 25 LAB CUMULATIVE SELECTED 2 No selection items chosen for this component. CHEM 7 Results Collection DT Spec Sodium K+/Pot CL CO2 GLUCOSE BUN 09/14/2024 12:09 SERUM 133 L 4.3 95 L 28 121 H 14 04/15/2024 14:31 SERUM 123 L* 5.1 H 88 L 25 109 H 13 eGFR CKD-EPI 202009/14/24 12:09 64 SERUM LIVER PANEL TREND Collection DT Spec AST ALT T BILI ALK DENNIS T. PROT ALBUMIN 09/14/2024 12:09 SERUM 30 24 0.8 66 8.2 4.0 04/15/2024 14:31 SERUM 51 H 56 H 0.6 62 7.4 4.1 HEMOGLOBIN A1C TREND Collection DT Spec HGBA1c 04/15/2024 14:31 BLOOD 4.7 LIPID PANEL TREND Collection DT Spec CHOL HDL CHO/HDL LDL-c TRIG 09/14/2024 12:09 SERUM 238 H 118 H 2.0 99 106 04/15/2024 14:31 SERUM 178 91 H 2.0 80 34 Vitals: Ht: 68 in [172.7 cm] (09/14/2024 11:26) Wt: 257 lb [116.57 kg] (09/14/2024 11:26) BMI: BMI: 39.2 ASSESSMENT: Goal BP = <130/80 mmHg In office BP readings: SBP DBP HR 183 114 94 198 98 96 186 127 97 182 110 Manual Average 187 112 96 PLAN:Pt has elevated BP, possibly more increased at the moment due to nature of office visit and discussion of alcohol use. Encouraged to decrease alcohol use. Reviewed risks of excessive alcohol use and low sodium. Reviewed options at [place] to discuss and work on alcohol use with provider when pt is ready. Reviewed healthy eating. Reviewed proper BP technique. Recommended pt to contact CPP within 2 weeks if BP remains elevated, direct ext provided. Reviewed warning signs to seek ER or Urgent services. Pt declines picking up medication today, although CPP advised it would be in his best interest to do so. Pt requests to be seen in office in about 6 weeks. - Medication management: - CONTINUE - lisinopril 10 mg increased to 30 mg in July qPM -CONTINUE - atenolol 25 mg qPM -INITIATE - amlodipine 5 mg qAM - Continue to SMBP- pt to check daily - Healthy dietary and lifestyle modifications encouraged - Labs:PRN EDUCATION -A shared decision-making approach was used in the development of this plan, involving the , clinician, and any caregivers present. The [place] was provided the opportunity express questions or concerns, and the plan was adjusted as needed to address these concerns. -Reviewed with any new medications, changes to the medication list, education, and plan from today's visit. Patient (and/or caregiver) verbalized understanding of the plan, including possible known risks and benefits, and had no additional questions. RTC:11/25/24 @1130 Time Spent:45 mins PBM PharmD Pharmacotherapy Rem V12: PHARMACIST INTERVENTIONS: HYPERTENSION Medication Intervention(s) Initiate new medication /pascual MCADAMS PHARMD, [facility] CLINICAL PHARMACY PRACTITIONER Signed: 10/09/2024 15:06 10/09/2024 ADDENDUM STATUS: COMPLETED Will ask AMSA to please schedule patient for: [X] [facility] PHARM PACT 3 RTC order placed. Appointment Length: _30__ minutes. 11/25/24 @1130 Thank you! /pascual MCADAMS PHARMD, [facility] CLINICAL PHARMACY PRACTITIONER Signed: 10/09/2024 15:06 Receipt Acknowledged By: * AWAITING SIGNATURE * BRIGITTE HOOVER JODI A [facility]
--- OUTSIDE RECORDS SUMMARY | 2024-11-25 07:30 | XMS_ITS | Encounter Summary ---
Author Name [facility] [place] [facility] [place] Address [address] [place] [id number] Care Team Providers Care Concrete Tester Name Role Phone JENNY POND Primary Care Provider Unavaila ble Selected Encounter This section includes the information on record at [place] for the Encounter. Date/Time Encounter Type Encounter Description Reason Provider Source Nov 25, 2024 11:30 AM MTMS BY PHARM ADDL 15 MIN CLINICAL PHARMACY ICD-10-CM I10 Essential (primary) hypertension HUY MCADAMS Zach Encounter Template Text not used by [place] Assessments - Encounter Diagnoses This section includes the primary and secondary diagnoses documented for the Encounter. Date/Time Primary/Secondary Diagnosis Diagnosis Name Provider Source Nov 25, 2024 04:13 PM PRIMARY Essential (primary) hypertension HUY MCADAMS [facility] Plan of Treatment: Future Appointments (+ 6 months) and Future Tests (+/- 45 days) The Plan of Treatment section includes future care activities for the patient from all [place] treatmentfacilities. This section includes future appointments and future orders which are active, pending or scheduled. Future Appointments This section includes appointments that were scheduled to occur 6 months from the date of the Encounter, up to a maximum of 20 appointments. The data comes from all [place] treatment facilities. Appointment Date/Time Appointment Type Appointme nt Facility Name January 06, 2025 10:00 AM [facility] January 13, 2025 10:00 AM [facility] January 13, 2025 11:30 AM [facility] [place] [facility] January 20, 2025 10:00 AM [facility]ORY [facility] NONE [facility] Feb 02, 2025 01:30 PM AMBULATORY - PS[facility]CHIATRY [facility] [place] [facility] Feb 02, 2025 02:30 PM AM[facility]ORY [facility] [place] [facility] Feb 03, 2025 10:00 AM [facility]ORY [facility] NONE [facility] Feb 03, 2025 12:00 PM [facility] [place] [facility] Feb 10, 2025 10:00 AM [facility]ORY [facility] NONE [facility] Feb 11, 2025 01:30 PM [facility] [place] [facility] Feb 17, 2025 10:00 AM AM[facility]ORY - NONE [facility] Feb 24, 2025 10:00 AM AM[facility]ORY - NONE [facility] Feb 25, 2025 03:30 PM AM[facility]ORY [facility] [place] [facility] Mar 15, 2025 01:00 PM AMBULATORY - [facility] [place] [facility] Mar 17, 2025 10:00 AM AM[facility]ORY - NONE [facility] Mar 23, 2025 02:30 PM AMBULATORY - PS[facility] [place] [facility] Mar 24, 2025 10:00 AM AMB[facility]ATORY - NONE [facility] Mar 24, 2025 01:00 PM AMB[facility]ORY - [facility] [place] [facility] Mar 31, 2025 10:00 AM AM[facility]ORY - NONE [facility] Mar 31, 2025 01:00 PM AMBULATORY - NONE [facility] [place] [facility] Vital Signs: All taken on the encounter date This section contains inpatient and outpatient Vital Signs collected on the date of the Encounter. Date/Time Temperature Pulse Blood Pressure Respiratory Rate SP02 Pain Height Weight Body Mass Index Source Nov 25, 2024 12:03 PM 267 41 [facility] [place] [facility] Nov 25, 2024 11:55 AM 76 128/79 [facility] [place] [facility] Nov 25, 2024 11:50 AM 76 118/76 [facility] [place] Nov 25, 2024 11:45 AM 75 128/77 [facility] Social History: Smoking Status (Most current) and Tobacco Use (All prior to encounter date) This section includes the most current, and the historical, smoking and tobacco- related health factors from the [place] facility where the Encounter took place. Current Smoking Status This section includes the most current smoking, or tobacco-related health factor, from the [place] facility where the Encounter took place. Date/Time Current Smoking Status Comment Facil ity Mar 17, 2024 09:29 AM VA-TOBACCO NEVER USED [facility] Advance Directives: All historical and current Section Date Range: From patient's date of to the date document was created. This section includes ALL of a patient's completed or amended [place] Advance and Rescinded Directives. The entries below indicate that a directive exists for the patient, but an actual copy is not included with this document. The data comes from all [place] facilities. Date Advance Directives Provider Source Apr 15, 2024 ADVANCE DIRECTIVE PATT BATISTA [facility] Encounter Notes: All associated encounter notes This section contains the clinical notes associated to the Encounter. Date/Time Encounter Note(s) Provider Source Nov 25, 2024 04:14 PM ADDENDUM: LOCAL TITLE: Addendum STANDARD TITLE: ADDENDUM DATE OF NOTE: NOV 25, 2024@16:14:12 ENTRY DATE: NOV 25, 2024@16:14:12 AUTHOR: HUY MCADAMS EXP COSIGNER: URGENCY: STATUS: COMPLETED Will ask AMSA to please schedule patient for: [X] [facility] PHARM PACT 3 RTC order placed. Appointment Length: _30 minutes. 01/13/25 @1130 Thank you! /emiliano/ HUY MCADAMS PHARMD,BCPS CLINICAL PHARMACY PRACTITIONER Signed: 11/25/2024 16:14 Receipt Acknowledged By: 11/26/2024 08:01 /emiliano/ CARA CARDOSO ADVANCED DIRECTOR OF CAREER RESOURCES --- Original Document --- 11/25/24 PHARMACY CLINIC NOTE: CALVIN BOSS, 64 yo WHITE MALE, presents for [id number] follow up visit for htn management. Pt was last seen in clinic on 10/09/24 in which lisinopril 30 mg daily and atenolol 25 mg daily were continued. Amlodipine 5 mg daily was initiated. Today, pt reports he is doing ok. He has been checking home BP with arm cuff. BP has improved. Denies any chest pain, headaches, blurred vision. Note a dry cough that started ~ 2 weeks ago. He has allergies, could be related. He notes increase in weight. He is very concerned about his weight and needed hip surgery, current waist size is 38-40 inches. He states he was fasting for his labs in September. He is scheduled to start MOVE in December, he would like to do TeleMOVE sooner if pt can start class sooner. Denies any personal or fm hx of mtc, mens, denies pancreatitis, gastroparesis, gallstones, many years ago - had SI > 20 years ago. He has cut back on alcohol which he reports is a significant amount. He states he has been having 3-4 drinks per day and having a whole glass of ice water in between to decrease his drinking. He has not had the feeling of being drunk in the past few weeks. Current htn medications: - lisinopril 30 mg qPM - atenolol 25 mg qPM - amlodipine 5 mg qAM Medication Adherence: - never misses Headaches:denies Chest pain:denies SOB:sometimes just sitting - misses breath- experiecing for a few months- thinks weight related. SOB upon exertion: sometimes Dizziness:denies Frequency of urination: twice at night Diet Patterns: patient eats on avg. 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 [employer] Personal Goals: SMBP: 10/09/24: 170/112 DATE SBP DBP -- 10/16/2024 178 103 10/17/2024 160 98 10/18/2024 173 88 10/21/2024 152 101 10/22/2024 166 100 10/23/2024 172 102 10/24/2024 164 98 10/25/2024 143 83 10/26/2024 179 105 10/28/2024 182 102 10/29/2024 167 102 10/30/2024 148 102 10/31/2024 138 99 11/01/2024 140 88 11/02/2024 137 87 11/03/2024 149 94 11/04/2024 163 96 11/05/2024 155 88 11/06/2024 188 100 11/07/2024 137 91 11/09/2024 145 90 11/11/2024 140 89 11/12/2024 122 82 11/13/2024 138 91 11/14/2024 138 87 11/15/2024 137 74 11/16/2024 140 82 11/20/2024 137 93 11/21/2024 168 95 11/23/2024 135 80 11/24/2024 124 79 11/25/2024 140 90 -- Average 152 92 SMBP assessment: above goal, although improved. Allergies/ADR: Patient has answered NKA Active and [...] 68 in [172.7 cm] (09/14/2024 11:26) Wt: 267 lbs BMI: BMI: 40.68 ASSESSMENT: Goal BP = <130/80 mmHg In office BP readings:10/09/24 SBP DBP HR 183 114 94 198 98 96 186 127 97 182 110 Manual Average 187 112 96 In office BP readings:11/25/24 SBP DBP HR 128 77 75 118 76 76 128 79 76 Average 125 77 76 PLAN: Reviewed with pt need to cut alcohol to no more than 2 alcoholic drinks per day for consideration of GLP1a medication as he could be at increased risk of pancreatitis. Will ask MOVE team to change to teleMOVE as pt would like to start sooner than December 2024 as he needs to do 4 weeks prior to consideration of GLP1a. Continue current htn medication, in clinic BP at goal. GLP1a criteria: hyperlipidemia, htn, osteoarthritis, metabolic syndrome - wasit size = 96 cm, fbg > 100 mg/dL and HTN - Medication management: - CONTINUE - lisinopril 10 mg increased to 30 mg in July qPM -CONTINUE - atenolol 25 mg qPM -CONTINUE - amlodipine 5 mg qAM - Continue to SMBP- pt to check daily - Healthy dietary and lifestyle modifications encouraged - Labs:PRN EDUCATION -A shared decision-making approach was used in the development of this plan, involving the , clinician, and any caregivers present. The [place] was provided the opportunity express questions or concerns, and the plan was adjusted as needed to address these concerns. -Reviewed with [place] any new medications, changes to the medication list, education, and plan from today's visit. Patient (and/or caregiver) verbalized understanding of the plan, including possible known risks and benefits, and had no additional questions. RTC:01/13/25 @1130 Time Spent:30ins PBM PharmD Pharmacotherapy Rem V12: PHARMACIST INTERVENTIONS: HYPERTENSION Medication monitoring, no dosage change required, continue to monitor and assess /emiliano/ HUY MCADAMS PHARMD,BCPS CLINICAL PHARMACY PRACTITIONER Signed: 11/25/2024 16:14 HUY MCADAMS [facility] Nov 25, 2024 11:25 AM PHARMACY OUTPATIEN T NOTE: LOCAL TITLE: PHARMACY CLINIC NOTE STANDARD TITLE: PHARMACY OUTPATIENT NOTE DATE OF NOTE: NOV 25, 2024@11:25 ENTRY DATE: NOV 25, 2024@11:25:05 AUTHOR: HUY MCADAMS COSIGNER: URGENCY: STATUS: COMPLETED PHARMACY CLINIC NOTE Has ADDENDA CALVIN BOSS, 64 yo WHITE MALE, presents for [id number] follow up visit for htn management. Pt was last seen in clinic on 10/09/24 in which lisinopril 30 mg daily and atenolol 25 mg daily were continued. Amlodipine 5 mg daily was initiated. Today, pt reports he is doing ok. He has been checking home BP with arm cuff. BP has improved. Denies any chest pain, headaches, blurred vision. Note a dry cough that started ~ 2 weeks ago. He has allergies, could be related. He notes increase in weight. He is very concerned about his weight and needed hip surgery, current waist size is 38-40 inches. He states he was fasting for his labs in September. He is scheduled to start MOVE in December, he would like to do TeleMOVE sooner if pt can start class sooner. Denies any personal or fm hx of mtc, mens, denies pancreatitis, gastroparesis, gallstones, many years ago - had SI > 20 years ago. He has cut back on alcohol which he reports is a significant amount. He states he has been having 3-4 drinks per day and having a whole glass of ice water in between to decrease his drinking. He has not had the feeling of being drunk in the past few weeks. Current htn medications: - lisinopril 30 mg qPM - atenolol 25 mg qPM - amlodipine 5 mg qAM Medication Adherence: - never misses Headaches:denies Chest pain:denies SOB:sometimes just sitting - misses breath- experiecing for a few months- thinks weight related. SOB upon exertion: sometimes Dizziness:denies Frequency of urination: twice at night Diet Patterns: patient eats on avg. 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 [employer] Personal Goals: SMBP: 10/09/24: 170/112 DATE SBP DBP -- 10/16/2024 178 103 10/17/2024 160 98 10/18/2024 173 88 10/21/2024 152 101 10/22/2024 166 100 10/23/2024 172 102 10/24/2024 164 98 10/25/2024 143 83 10/26/2024 179 105 10/28/2024 182 102 10/29/2024 167 102 10/30/2024 148 102 10/31/2024 138 99 11/01/2024 140 88 11/02/2024 137 87 11/03/2024 149 94 11/04/2024 163 96 11/05/2024 155 88 11/06/2024 188 100 11/07/2024 137 91 11/09/2024 145 90 11/11/2024 140 89 11/12/2024 122 82 11/13/2024 138 91 11/14/2024 138 87 11/15/2024 137 74 11/16/2024 140 82 11/20/2024 137 93 11/21/2024 168 95 11/23/2024 135 80 11/24/2024 124 79 11/25/2024 140 90 -- Average 152 92 SMBP assessment: above goal, although improved. Allergies/ADR: Patient has answered NKA Active and [...] 68 in [172.7 cm] (09/14/2024 11:26) Wt: 267 lbs BMI: BMI: 40.68 ASSESSMENT: Goal BP = <130/80 mmHg In office BP readings:10/09/24 SBP DBP HR 183 114 94 198 98 96 186 127 97 182 110 Manual Average 187 112 96 In office BP readings:3/26/25 SBP DBP HR 128 77 75 118 76 76 128 79 76 Average 125 77 76 PLAN: Reviewed with pt need to cut alcohol to no more than 2 alcoholic drinks per day for consideration of GLP1a medication as he could be at increased risk of pancreatitis. Will ask MOVE team to change to teleMOVE as pt would like to start sooner than December 2024 as he needs to do 4 weeks prior to consideration of GLP1a. Continue current htn medication, in clinic BP at goal. GLP1a criteria: hyperlipidemia, htn, osteoarthritis, metabolic syndrome - wasit size = 96 cm, fbg > 100 mg/dL and HTN - Medication management: - CONTINUE - lisinopril 10 mg increased to 30 mg in July qPM -CONTINUE - atenolol 25 mg qPM -CONTINUE - amlodipine 5 mg qAM - Continue to SMBP- pt to check daily - Healthy dietary and lifestyle modifications encouraged - Labs:PRN EDUCATION -A shared decision-making approach was used in the development of this plan, involving the [place], clinician, and any caregivers present. The was provided the opportunity express questions or concerns, and the plan was adjusted as needed to address these concerns. -Reviewed with any new medications, changes to the medication list, education, and plan from today's visit. Patient (and/or caregiver) verbalized understanding of the plan, including possible known risks and benefits, and had no additional questions. RTC:01/13/25 @1130 Time Spent:30ins PBM PharmD Pharmacotherapy Rem V12: PHARMACIST INTERVENTIONS: HYPERTENSION Medication monitoring, no dosage change required, continue to monitor and assess /emiliano/ HUY MCADAMS PHARMD, BCPS CLINICAL PHARMACY PRACTITIONER Signed: 11/25/2024 16:14 11/25/2024 ADDENDUM STATUS: COMPLETED Will ask AMSA to please schedule patient for: [X] [facility] PHARM PACT 3 RTC order placed. Appointment Length: _30 minutes. 01/13/25 @1130 Thank you! /pascual MCADAMS PHARMD, BCPS CLINICAL PHARMACY PRACTITIONER Signed: 11/25/2024 16:14 Receipt Acknowledged By: * AWAITING SIGNATURE * BRIGITTE HOOVER JODI A [facility]
--- OUTSIDE RECORDS SUMMARY | 2025-01-06 06:00 | XMS_ITS | Encounter Summary ---
Author Name [facility] [place] Address [address] [place] [id number] Care Team Providers Care Franchise Sales Director Name Role Phone JENNY POND Primary Care Provider Unavaila banner [facility] Selected Encounter This section includes the information on record at [place] for the Encounter. Date/Time Encounter Type Encounter Description Reason Provider Source January 06, 2025 10:00 AM [facility] IVNTJ GRP EA ADDL WEIGHT MGMT & MOVE! PROG - GRP ICD-10-CM Z68.39 Body mass index [BMI] 39.0-39.9, adult JUAN DANIEL SANCHEZ [facility] Encounter Template Text not used by [place] Assessments - Encounter Diagnoses This section includes the primary and secondary diagnoses documented for the Encounter. Date/Time Primary/Secondary Diagnosis Diagnosis Name Provider Source January 06, 2025 12:03 PM PRIMARY Body mass index [BMI] 39.0-39.9, adult JUAN DANIEL SANCHEZ [facility] January 06, 2025 12:03 PM SECONDARY Obesity, class 2 JUAN DANIEL SANCHEZ [facility] Plan of Treatment: Future Appointments (+ 6 months) and Future Tests (+/- 45 days) The Plan of Treatment section includes future care activities for the patient from all [place] treatmentfacilities. This section includes future appointments and future orders which are active, pending or scheduled. Future Appointments This section includes appointments that were scheduled to occur 6 months from the date of the Encounter, up to a maximum of 20 appointments. The data comes from all [place] treatment facilities. Appointment Date/Time Appointment Type Appointme nt Facility Name January 13, 2025 10:00 AM AM[facility]ULATORY - NONE [facility] January 13, 2025 11:30 AM [facility]ORY [facility] [place] [facility] January 20, 2025 10:00 AM AM[facility]ATORY - NONE [facility] Feb 02, 2025 01:30 PM AMBULATORY - PSYCHIATRY [facility] [place] [facility] Feb 02, 2025 02:30 PM AMBULATORY - MEDICINE [facility] [place] [facility] Feb 03, 2025 10:00 AM AMB[facility]ATORY - NONE [facility] Feb 03, 2025 12:00 PM AMBULATORY - MEDICINE [facility] [place] [facility] Feb 10, 2025 10:00 AM AMB[facility]ATORY - NONE [facility] Feb 11, 2025 01:30 PM AMBULATORY - MEDICINE [facility] [place] [facility] Feb 17, 2025 10:00 AM AMB[facility]ATORY - NONE [facility] Feb 24, 2025 10:00 AM AMB[facility]ATORY - NONE [facility] Feb 25, 2025 03:30 PM AMBULATORY - MEDICINE [facility] [place] [facility] Mar 15, 2025 01:00 PM AMBULATORY - MEDICINE [facility] [place] [facility] Mar 17, 2025 10:00 AM AMB[facility]ATORY - NONE [facility] Mar 23, 2025 02:30 PM AMBULATORY - PS[facility]CHIATRY [facility] [place] [facility] Mar 24, 2025 10:00 AM AMB[facility]ATORY - NONE [facility] Mar 24, 2025 01:00 PM AMBULATORY - MEDICINE [facility] [place] [facility] Mar 31, 2025 10:00 AM AM[facility]ATORY - NONE [facility] Mar 31, 2025 01:00 PM AMBULATORY - NONE [facility] [place] [facility] Apr 20, 2025 03:00 PM AMBULATORY - MEDICINE [facility] [place] [facility] Vital Signs: All taken on the encounter date This section contains inpatient and outpatient Vital Signs collected on the date of the Encounter. Date/Time Temperature Pulse Blood Pressure Respiratory Rate SP02 Pain Height Weight Body Mass Index Source January 06, 2025 11:35 AM 259 39 [facility] Advance Directives: All historical and current Section Date Range: From patient's date of to the date document was created. This section includes ALL of a patient's completed or amended [place] Advance and Rescinded Directives. The entries below indicate that a directive exists for the patient, but an actual copy is not included with this document. The data comes from all [place] facilities. Date Advance Directives Provider Source Apr 15, 2024 ADVANCE DIRECTIVE PATT BATISTA [place] [facility] Encounter Notes: All associated encounter notes This section contains the clinical notes associated to the Encounter. Date/Time Encounter Note(s) Provider Source January 06, 2025 12:03 PM MOVE NOTE: LOCAL TITLE: WEIGHT MANAGEMENT/MOVE! OUTPATIENT GROUP NOTE STANDARD TITLE: MOVE NOTE DATE OF NOTE: JANUARY 06, 2025@12:03 ENTRY DATE: JANUARY 06, 2025@12:03:20 AUTHOR: JUAN DANIEL SANCHEZ COSIGNER: URGENCY: STATUS: COMPLETED participated in MOVE! Group Counseling via VVC on January 06, 2025. The was provided with information on VVC and has given verbal consent to use group VVC services for their healthcare. The copy of the Group Telehealth Agreement has been mailed to the . The Veterans location/emergency contact number were confirmed. The Emergency Call Relay Center (E911) was available. The visit was locked for security and privacy. [place] identified with 2 identifiers: [ ] Full Name [ ] Address Veterans attended the [facility] MOVE! group session on this date. MOVE! is a program designed to provide education about weight management skills to overweight and obese Veterans. Group members submitted their weights to the facilitators. Session #1 (Welcome to MOVE!) was conducted at today's MOVE! group meeting using the MOVE! Workbook. The group facilitators explained the MOVE! Program along with the program guidelines, reviewed motivation and reasons for weight loss, and explored ambivalence for change using Motivational Interviewing techniques. Steps to behavior change were reviewed along with the keys to weight management success. Finally, the importance of goal setting was explained and opportunities were provided to set program goals. The objectives accomplished at [facility] session were: 1. Discussed [place] motivation and reasons for losing weight. 2. Described the behavior-change process. 3. Assisted Veterans in setting weight-loss goals. The group participants utilized the MOVE! Workbook at todays session and were instructed to bring it to each subsequent MOVE! group meeting. Participants were asked to begin recording weight weekly, to log all food and beverages consumed daily, and to also log all physical activities daily. They were instructed to bring their Food and Physical Activity Log to every session. The next MOVE! group meeting will be held each week on Wednesdays at 10:00am via [employer] technology. [place]'s reported weight was 259 lbs. for the first MOVE group on this date. Dx: Obesity Class 2 BMI 39.0-39.9 The session lasted for 1 hour in duration. /emiliano/ JUAN DANIEL SANCHEZ, Ph.D. CLINICAL PSYCHOLOGIST Signed: 01/06/2025 12:21 Receipt Acknowledged By: 01/06/2025 13:28 /emiliano/ [employer] Registered Dietitian [facility] January 06, 2025 11:50 AM MOVE CONSULT: LOCAL TITLE: CONSULT REPORT/MOVE! STANDARD TITLE: MOVE CONSULT DATE OF NOTE: JANUARY 06, 2025@11:50 ENTRY DATE: JANUARY 06, 2025@11:50:48 AUTHOR: KAT SEALS EXP COSIGNER: URGENCY: STATUS: COMPLETED This attended their first session of the [facility] MOVE! group on 01/06/25. Please see Weight Management progress note from that date for full note and additional information. /emiliano/ KAT SEALS Registered Dietitian Signed: 01/06/2025 11:50 KAT SEALS [facility]
--- OUTSIDE RECORDS SUMMARY | 2025-01-13 07:30 | XMS_ITS | Encounter Summary ---
Author Name [facility] [place] Organization [place] Address [address] [place] [id number] Care Team Providers Care Stuffing Machine Operator Name Role Phone JENNY POND Primary Care Provider Unavaila ble Selected Encounter This section includes the information on record at [place] for the Encounter. Date/Time Encounter Type Encounter Description Reason Provider Source January 13, 2025 11:30 AM MTMS BY PHARM ADDL 15 MIN CLINICAL PHARMACY ICD-10-CM I10 Essential (primary) hypertension HUY MCADAMS Zach Encounter Template Text not used by [place] Assessments - Encounter Diagnoses This section includes the primary and secondary diagnoses documented for the Encounter. Date/Time Primary/Secondary Diagnosis Diagnosis Name Provider Source January 13, 2025 04:15 PM PRIMARY Essential (primary) hypertension HUY MCADAMS [facility] Plan of Treatment: Future Appointments (+ 6 months) and Future Tests (+/- 45 days) The Plan of Treatment section includes future care activities for the patient from all [place] treatmentfacilities. This section includes future appointments and future orders which are active, pending or scheduled. Future Appointments This section includes appointments that were scheduled to occur 6 months from the date of the Encounter, up to a maximum of 20 appointments. The data comes from all [place] treatment facilities. Appointment Date/Time Appointment Type Appointme nt Facility Name January 20, 2025 10:00 AM AMBULATORY - NONE [facility] Feb 02, 2025 01:30 PM [facility] [place] [facility] Feb 02, 2025 02:30 PM AM[facility]UL[facility]ORY [facility] [place] [facility] Feb 03, 2025 10:00 AM [facility] Feb 03, 2025 12:00 PM AMBULATORY [facility]ICINE [facility] [place] [facility] Feb 10, 2025 10:00 AM [facility] Feb 11, 2025 01:30 PM [facility] [place] [facility] Feb 17, 2025 10:00 AM [facility] Feb 24, 2025 10:00 AM [facility] Feb 25, 2025 03:30 PM AM[facility]ULATORY [facility]INE [facility] [place] [facility] Mar 15, 2025 01:00 PM AM[facility]ULATORY [facility] [place] [facility] Mar 17, 2025 10:00 AM [facility]ORY [facility] Mar 23, 2025 02:30 PM AMBULATORY [facility] [place] [facility] Mar 24, 2025 10:00 AM [facility]ORY [facility] Mar 24, 2025 01:00 PM AMBULATORY [facility] MEDICINE [facility] [place] [facility] Mar 31, 2025 10:00 AM [facility]ORY [facility]ONE [facility] Mar 31, 2025 01:00 PM AM[facility]ATORY - NONE [facility] [place] [facility] Apr 20, 2025 03:00 PM AM[facility]ULATORY [facility]INE [facility] [place] [facility] Apr 21, 2025 10:00 AM [facility]ORY [facility] Apr 28, 2025 10:00 AM [facility]ORY [facility] Vital Signs: All taken on the encounter date This section contains inpatient and outpatient Vital Signs collected on the date of the Encounter. Date/Time Temperature Pulse Blood Pressure Respiratory Rate SP02 Pain Height Weight Body Mass Index Source January 13, 2025 11:46 AM 66 161/85 [facility] [place] [facility] January 13, 2025 11:44 AM 71 164/84 [facility] [place] [facility] January 13, 2025 11:43 AM 267.5 41 [facility] January 13, 2025 11:41 AM 74 154/89 [facility] January 13, 2025 11:40 AM 65 168/89 [facility] Social History: Smoking Status (Most current) and Tobacco Use (All prior to encounter date) This section includes the most current, and the historical, smoking and tobacco- related health factors from the [place] facility where the Encounter took place. Current Smoking Status This section includes the most current smoking, or tobacco-related health factor, from the [place] facility where the Encounter took place. Date/Time Current Smoking Status Comment Facil ity Mar 17, 2024 09:29 AM VA-TOBACCO NEVER USED [facility] Advance Directives: All historical and current Section Date Range: From patient's date of to the date document was created. This section includes ALL of a patient's completed or amended [place] Advance and Rescinded Directives. The entries below indicate that a directive exists for the patient, but an actual copy is not included with this document. The data comes from all [place] facilities. Date Advance Directives Provider Source Apr 15, 2024 ADVANCE DIRECTIVE PATT BATISTA [facility] Encounter Notes: All associated encounter notes This section contains the clinical notes associated to the Encounter. Date/Time Encounter Note(s) Provider Source January 13, 2025 11:32 AM PHARMACY OUTPATIEN T NOTE: LOCAL TITLE: PHARMACY CLINIC NOTE STANDARD TITLE: PHARMACY OUTPATIENT NOTE DATE OF NOTE: JANUARY 13, 2025@11:32 ENTRY DATE: JANUARY 13, 2025@11:32:49 AUTHOR: HUY MCADAMS COSIGNER: URGENCY: STATUS: COMPLETED CALVIN BOSS, 65 yo WHITE MALE, presents for znea-ki-nvia follow up visit for htn management. Pt was last seen in clinic on 11/25/24 in which lisinopril 30 mg daily atenolol 25 mg daily, and amlodipine 5 mg daily were continued. Today, pt reports he is doing ok. He has been checking home BP with arm cuff. BP has improved. He reports he has scheduled his hip replacement for May, hoping it gets pushed up sooner. Currently drinks 4 to 5 days per week and drinks 3 to 4 drinks per time, this is a signficant improvement from previous. He continues to work on cutting back on the alcohol. 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 Allergies/ADR: [...] 128 79 76 Average 125 77 76 In office BP readings : 01/13/25 SBP DBP HR 168 89 65 154 89 74 164 84 71 161 85 66 Average 162 87 69 PLAN: Reviewed to continue working on cutting back on alcoholic beverages. Continue with MOVE x 2 more weeks. Nurse visit to check BP in a few weeks since elevated in office but controlled at home. GLP1a criteria: hyperlipidemia, htn, osteoarthritis, metabolic syndrome - waist size = 96-101.6 cm, fbg > 100 mg/dL and HTN - Medication management: - CONTINUE - lisinopril 10 mg increased to 30 mg in July q -CONTINUE - atenolol 25 mg qPM -CONTINUE - amlodipine 5 mg qAM - Continue to SMBP- pt to check daily - Healthy dietary and lifestyle modifications encouraged - Labs:PRN EDUCATION -A shared decision-making approach was used in the development of this plan, involving the [place], clinician, and any caregivers present. The was provided the opportunity express questions or concerns, and the plan was adjusted as needed to address these concerns. -Reviewed with [place] any new medications, changes to the medication list, education, and plan from today's visit. Patient (and/or caregiver) verbalized understanding of the plan, including possible known risks and benefits, and had no additional questions. RTC:02/03/25 Time Spent:30 mins PBM PharmD Pharmacotherapy Rem V12: PHARMACIST INTERVENTIONS: HYPERTENSION Medication monitoring, no dosage change required, continue to monitor and assess /emiliano/ HUY MCADAMS PHARMD,[facility] PRACTITIONER Signed: 01/13/2025 16:15 HUY MCADAMS [place] [facility]
--- OUTSIDE RECORDS SUMMARY | 2025-02-02 09:30 | XMS_ITS ---
Author Name [facility] [place] Organization [place] Address [address] [place] [address] Care Team Providers Care A Operator Name Role Phone JENNY POND Primary Care Provider Unavaila ble Selected Encounter This section includes the information on record at [place] for the Encounter. Date/Time Encounter Type Encounter Description Reason Pro vider Source Feb 02, 2025 01:30 PM Outpatient Encounter [facility] IHE Encounter Template Text not used by CT Plan of Treatment: Future Appointments (+ 6 months) and Future Tests (+/- 45 days) The Plan of Treatment section includes future care activities for the patient from all [place] treatmentfacilities. This section includes future appointments and future orders which are active, pending or scheduled. Future Appointments This section includes appointments that were scheduled to occur 6 months from the date of the Encounter, up to a maximum of 20 appointments. The data comes from all [place] treatment facilities. Appointment Date/Time Appointment Type Appointme nt Facility Name Feb 03, 2025 10:00 AM [facility]ORY - NONE [facility] Feb 03, 2025 12:00 PM AMBULATORY - [facility]ICINE [facility] [place] [facility] Feb 10, 2025 10:00 AM [facility]ORY - NONE [facility] Feb 11, 2025 01:30 PM AMBULATORY - [facility]INE [facility] [place] [facility] Feb 17, 2025 10:00 AM [facility]ORY - NONE [facility] Feb 24, 2025 10:00 AM [facility]ORY - NONE [facility] Feb 25, 2025 03:30 PM AMBULATORY - MEDICINE [facility] [place] [facility] Mar 15, 2025 01:00 PM AMBULATORY [facility] MEDICINE [facility] [place] [facility] Mar 17, 2025 10:00 AM [facility]ORY - NONE [facility] Mar 23, 2025 02:30 PM AMBULATORY - PS[facility]RY [facility] [place] [facility] Mar 24, 2025 10:00 AM [facility]ORY - NONE [facility] Mar 24, 2025 01:00 PM AMBULATORY - MEDICINE [facility] [place] [facility] Mar 31, 2025 10:00 AM [facility]ORY - NONE [facility] Mar 31, 2025 01:00 PM AMBULATORY - NONE [facility] [place] [facility] Apr 20, 2025 03:00 PM AMBULATORY - MEDICINE [facility] [place] [facility] Apr 21, 2025 10:00 AM [facility]ORY - NONE [facility] Apr 28, 2025 10:00 AM [facility]ORY - [facility]ONE [facility] May 06, 2025 02:30 PM AMBULATORY - MEDICINE [facility] [place] [facility] Jul 06, 2025 11:30 AM [facility] Social History: Smoking Status (Most current) and Tobacco Use (All prior to encounter date) This section includes the most current, and the historical, smoking and tobacco- related health factors from the [place] facility where the Encounter took place. Current Smoking Status This section includes the most current smoking, or tobacco-related health factor, from the [place] facility where the Encounter took place. Date/Time Current Smoking Status Comment Facil ity Mar 17, 2024 09:29 AM VA-TOBACCO NEVER USED [facility] Advance Directives: All historical and current Section Date Range: From patient's date of to the date document was created. This section includes ALL of a patient's completed or amended CT Advance and Rescinded Directives. The entries below indicate that a directive exists for the patient, but an actual copy is not included with this document. The data comes from all [place] facilities. Date Advance Directives Provider Source Apr 15, 2024 ADVANCE DIRECTIVE [facility]ATT [facility] Encounter Notes: All associated encounter notes This section contains the clinical notes associated to the Encounter. Date/Time Encounter Note(s) Provider Source Feb 02, 2025 01:56 PM CLERICAL NOTE: LOCAL TITLE: APPOINTMENT NO SHOW STANDARD TITLE: CLERICAL NOTE DATE OF NOTE: FEB 02, 2025@13:56 ENTRY DATE: FEB 02, 2025@13:56:24 AUTHOR: DELL THOMASON COSIGNER: URGENCY: STATUS: COMPLETED APPOINTMENT NO SHOW Has ADDENDA Patient Name: CALVIN BOSS IV Patient SSN: [id number] Date and time of Appointment No show : 02/02/25 13:30 PATIENT PHONE - PHONE NUMBER [CELLULAR] - Patient's medical record was reviewed. Follow-up actions were determined and initiated: Please check/complete as applies: [X]Telephoned Directly [ ]Re-scheduled for next available appt [X]Sent a N0-show letter ( must call for appointment) [ ]Other (Emergent/Overbook, etc.): Additional Comments: Vet was not present for 1330 F2F appt. Called, to which he did respond. apologetic for missing appt as there was confusion regarding the appt date ([id number]). requested refills of escitalopram and trazodone and expressed being okay otherwise. Please no-show appt. Future Clinic Visits 02/02/2025 14:30 [facility] PACT 7 RN 02/03/2025 12:00 [facility] PHONE PHARM PACT 3 03/15/2025 13:00 [facility] PACT 7 THERMOFORMING OPERATOR /es/ Dell Thomason, PharmD Clinical Pharmacist Practitioner Signed: 02/02/2025 14:01 Receipt Acknowledged By: 02/02/2025 15:22 /emiliano/ TIAGO SÁNCHEZ ADVANCED HOSPITALIST MEDICAL DIRECTOR 02/02/2025 ADDENDUM STATUS: COMPLETED RTC orders: Unable to contact patient: Attempts to contact: 1st attempt: Provider Left voicemail 2nd attempt: Letter mailed: 02/03/25 Disposition on:Jan 3rd attempt: 4th attempt: Provider called patient to schedule. No answer. Left voicemail to call office back at [phone] ext. [phone] to schedule appointment. *FIRST ATTEMPT Letter sent on: 02/03/25 SECOND ATTEMPT Day 14 to Disposition is: 02/17/25 /pascual SÁNCHEZ ADVANCED HOSPITALIST MEDICAL DIRECTOR Signed: 02/02/2025 15:23 02/19/2025 ADDENDUM STATUS: COMPLETED RTC orders: Unable to contact patient: Attempts to contact: 1st attempt: 2nd attempt: 3rd attempt: Left voicemail 4th attempt: Pony Cylinder Press Operator called patient to schedule. No answer. Left voicemail to call office back at [phone] ext. [phone] to schedule appointment.THIRD ATTEMPT /emiliano/ TIAGO SÁNCHEZ ADVANCED HOSPITALIST MEDICAL DIRECTOR Signed: 02/19/2025 15:06 02/23/2025 ADDENDUM STATUS: COMPLETED RTC orders: Unable to contact patient: Attempts to contact: 1st attempt: 2nd attempt: 3rd attempt: 4th attempt: Left voicemail Pony Cylinder Press Operator called patient to schedule. No answer. Left voicemail to call office back at [phone] ext. [phone] to schedule appointment.FOURTH ATTEMPT /emiliano/ TIAGO SÁNCHEZ ADVANCED HOSPITALIST MEDICAL DIRECTOR Signed: 02/23/2025 12:18 02/25/2025 ADDENDUM STATUS: COMPLETED Pony Cylinder Press Operator called patient to schedule. No answer. Left voicemail to call office back at [phone] ext. [phone] to schedule appointment.FIFTH ATTEMPT /emiliano/ TIAGO SÁNCHEZ ADVANCED HOSPITALIST MEDICAL DIRECTOR Signed: 02/25/2025 10:[address] [facility]
--- OUTSIDE RECORDS SUMMARY | 2025-02-04 06:03 | XMS_ITS | Encounter Summary ---
Author Name [facility] [place] Organization [place] Address [address] [place] [id number] Care Team Providers Care Carton Repairer Name Role Phone JENNY POND Primary Care Provider Unavaila ble Selected Encounter This section includes the information on record at [place] for the Encounter. Date/Time Encounter Type Encounter Description Reason Provider Source Feb 04, 2025 10:03 AM [facility] DIG ASSMT&MGMT 21+ CLINICAL PHARMACY ICD-10-CM E66.9 Obesity, unspecified CATRINA POST III [facility] Encounter Template Text not used by [place] Assessments - Encounter Diagnoses This section includes the primary and secondary diagnoses documented for the Encounter. Date/Time Primary/Secondary Diagnosis Diagnosis Name Provider Source Feb 04, 2025 10:18 AM PRIMARY Obesity, unspecified CATRINA POST III [facility] Plan of Treatment: Future Appointments (+ [...] Appointment Type Appointme nt Facility Name Feb 10, 2025 10:00 AM [facility]ATORY - NONE [facility] Feb 11, 2025 01:30 PM AMBULATORY [facility] MEDICINE [facility] [place] [facility] Feb 17, 2025 10:00 AM [facility]ORY - NONE [facility] Feb 24, 2025 10:00 AM [facility]ORY - NONE [facility] Feb 25, 2025 03:30 PM AMBULATORY - MEDICINE [facility] [place] [facility] Mar 15, 2025 01:00 PM AMBULATORY - MEDICINE [facility] [place] [facility] Mar 17, 2025 10:00 AM [facility]ATORY - NONE [facility] Mar 23, 2025 02:30 PM AMBULATORY - PS[facility]CHIATRY [facility] [place] [facility] Mar 24, 2025 10:00 AM [facility]ATORY - NONE [facility] Mar 24, 2025 01:00 PM AMBULATORY - MEDICINE [facility] [place] [facility] Mar 31, 2025 10:00 AM [facility]ATORY - NONE [facility] Mar 31, 2025 01:00 PM AMBULATORY - NONE [facility] [place] [facility] Apr 20, 2025 03:00 PM AMBULATORY - MEDICINE [facility] [place] [facility] Apr 21, 2025 10:00 AM [facility]ORY - [facility]ONE [facility] Apr 28, 2025 10:00 AM [facility]ORY - NONE [facility] May 06, 2025 02:30 PM AMBULATORY - MEDICINE [facility] [place] [facility] Jul 06, 2025 11:30 AM [facility] Social History: Smoking Status (Most current) [...] 17, 2024 09:29 AM VA-TOBACCO NEVER USED [facility] Advance Directives: All historical and current [...] Provider Source Apr 15, 2024 ADVANCE DIRECTIVE LYNNEPATT SHWETA [place] [facility] [place] [facility] Encounter Notes: All associated encounter notes This section contains the clinical notes associated to the Encounter. Date/Time Encounter Note(s) Provider Source Feb 04, 2025 10:03 AM MEDICATION MGT CONSULT: LOCAL TITLE: CONSULT REPORT/NON FORMULARY PADR STANDARD TITLE: MEDICATION MGT CONSULT DATE OF NOTE: FEB 04, 2025@10:03 ENTRY DATE: FEB 04, 2025@10:03:36 AUTHOR: CATRINA POST EXP COSIGNER: URGENCY: STATUS: COMPLETED The medical record has been reviewed with regard to this restricted drug request. Medication requested: TIRZEPATIDE 2.5MG/0.5ML INJ,SOLN PACK,4 Medication indication: obesity Medical history relevant to this request: 65 y/o male with HTN, total hip arthroplasty, OA, hyperlipidemia and obesity (BMI=40 02/03/25.) meets the scarce resource [place] guidance with a BMI of 40 and at least 3 weight related diagnosis. Lorane is currently enrolled in MOVE! Exclusion Criteria: If the answer to ANY item below is met, then the patient should NOT receive tirzepatide (ZEPBOUND) for chronic weight management. Type 1 diabetes ^3 Not diagnosed with diabetes. Personal or family history of medullary thyroid carcinoma or with Multiple Endocrine Neoplasia syndrome type 2 No per this consul Severe gastrointestinal dysmotility, including gastroparesis No gastroparesis per this consult History of pancreatitis (does not pertain to patients for whom the cause of pancreatitis is known and no longer presents a risk) ^4 No pancreatitis per this consult The patient has a history of suicidal attempts or active suicidal ideation (unless a mental health consultation supports benefits of tirzepatide in a patient with a history of suicide attempts or recent suicidal ideation) ^5 Had SI >20 years ago but no current concerns per this consult. Known PDR, severe NPDR, clinically significant ME, or DME unless risks/benefits have been discussed with the patient and documented in the EHR with monitoring plans and follow-up with an park interpretive specialist who is informed at the time of the initiation ^[address] not on problem list ADD The request is approved Aug 2025 - No formulary-preferred alternative /es/ CATRINA POST III Pharm.D Clinical Pharmacy Provider Signed: 02/04/2025 10:18 CATRINA POST III [place] [facility]
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
--- OUTSIDE RECORDS SUMMARY | 2025-03-15 09:00 | XMS_ITS ---
Author Name [facility] Organization [facility] Address [address] [place] [id number] Care Team Providers Care Appointment Manager Name Role Phone JENNY POND Primary Care Provider Unavaila ble Selected Encounter This section includes the information on record at [place] for the Encounter. Date/Time Encounter Type Encounter Description Reason Provider Source Mar 15, 2025 01:00 PM OFFICE O/P EST HI 40 MIN PRIMARY CARE/MEDICINE ICD-10-CM E66.9 Obesity, unspecified PONDROMARIO AM Zach Encounter Template Text not used by PR Assessments - Encounter Diagnoses This section includes the primary and secondary diagnoses documented for the Encounter. Date/Time Primary/Secondary Diagnosis Diagnosis Name Provider Source Mar 15, 2025 01:22 PM PRIMARY Obesity, unspecified POND,WILL RENETTA J [facility] [place] [facility] Mar 15, 2025 01:22 PM SECONDARY Alcohol use, unspecified, uncomplicated POND,WILL RENETTA J [facility] [place] [facility] Mar 15, 2025 01:22 PM SECONDARY Essential (primary) hypertension POND,WILL RENETTA Schmitz [facility] [place] [facility] Mar 15, 2025 01:22 PM SECONDARY Hyperlipidemia, unspecified POND,WILL [facility]ETTA [facility] Mar 15, 2025 01:22 PM SECONDARY Hypo-osmolality and hyponatremia POND,WILL RENETTA J [facility] [place] [facility] Mar 15, 2025 01:22 PM SECONDARY Unspecified osteoarthritis, unspecified site JEF POND [facility] [place] [facility] Plan of Treatment: Future Appointments (+ 6 months) and Future Tests (+/- 45 days) The Plan of Treatment section includes future care activities for the patient from all [facility]. This section includes future appointments and future orders which are active, pending or scheduled. Future Appointments This section includes appointments that were scheduled to occur 6 months from the date of the Encounter, up to a maximum of 20 appointments. The data comes from all [place] treatment facilities. Appointment Date/Time Appointment Type Appointme nt Facility Name Mar 17, 2025 10:00 AM AMBULATORY - NONE [facility] Mar 23, 2025 02:30 PM AMBULATORY - PSYCHIATRY [facility] [place] [facility] Mar 24, 2025 10:00 AM AMBULATORY - NONE [facility] Mar 24, 2025 01:00 PM AMBULATORY - MEDICINE PR [facility] [place] [facility] Mar 31, 2025 10:00 AM AMBULATORY - NONE [facility] Mar 31, 2025 01:00 PM AMBULATORY - NONE [facility] [place] [facility] Apr 20, 2025 03:00 PM AMBULATORY - MEDICINE PR [facility] [place] [facility] Apr 21, 2025 10:00 AM AMBULATORY - NONE [facility] Apr 28, 2025 10:00 AM AMBULATORY - NONE [facility] May 06, 2025 02:30 PM AMBULATORY - MEDICINE PR [facility] [place] [facility] Jul 06, 2025 11:30 AM AMBULATORY - PSYCHIATRY [facility] [place] [facility] Sep 15, 2025 01:00 PM AMBULATORY - MEDICINE PR C [facility] [place] [facility] Lab Results: +/- 30 days of the encounter This section includes the Chemistry and Hematology Lab Results on record with PR for the patient. Radiology Reports and Pathology Reports are provided separately, in subsequent sections. Lab Results This section contains the Chemistry/Hematology Results that were resulted 30 days before or 30 daysafter the date of the Encounter. Date/Time Source Result Type Result - Unit Interpretation Reference Range Specimen Type Comment Mar 15, 2025 01:40 PM [facility] BASIC METABOLIC PANEL (non-fasting) SERUM Spe cimen Type: SERUM No comment entered. Ordering Provider: SAMANTHA POND Report Released Date/Time: Mar 15, 2025 01:12 PM Reporting Lab: [facility] [address] [facility] [address] Performing Lab: [address] [address] UREA NITROGEN 18 mg/dL 8-26 GLUCOSE 91 mg/dL 65-100 SODIUM 130 mmol/L L 136-145 POTASSIUM 5.1 mmol/L 3.5-5.1 CHLORIDE 91 mmol/L L 98-107 CO2 29 meq/L 23-31 CALCIUM 9.5 mg/dL 8.8-10 CREATININE, Serum 1.87 mg/dL H 0.72-1.25 eGFR(CKD-EPI 2020) 40 mL/min L >60 Mar 11, 2025 01:31 PM [facility] CBC BLOOD Specimen Type: BLOOD No comment entered. Ordering Provider: JENNY POND Report Released Date/Time: Mar 02, 2025 03:57 PM Reporting Lab: [address] [address] Performing Lab: [address] [address] WBC 7.89 10*3/uL 4.50-11.00 RBC 3.80 10*6/uL L 4.23-5.66 HGB 12.9 g/dL 12.8-17 HCT 35.8 L 39.2-50.4 MCV 94.2 fL 82-99 MCHC 36.0 g/dL H 30.8-35.1 PLT 299 10*3/uL 140-360 MPV 8.6 fL L 9.2-12.4 RDW-CV 11.1 L 12.0-16.0 MCH 33.9 pg H 26.2-32.6 Mar 11, 2025 01:31 PM [facility] BASIC METABOLIC PANEL (non-fasting) SERUM Spe cimen Type: SERUM Comment: Verified by repeat analysis. Critical result acknowledged. DR POND [id number]@15:21. Ordering Provider: JENNY POND Report Released Date/Time: Mar 02, 2025 03:57 PM Reporting Lab: [facility] [address] [facility] [address] Performing Lab: [facility] [address] [facility] [address] UREA NITROGEN 15 mg/dL 8-26 GLUCOSE 105 mg/dL H 65-100 SODIUM 122 mmol/L LL 136-145 POTASSIUM 4.6 mmol/L 3.5-5.1 CHLORIDE 88 mmol/L L 98-107 CO2 28 meq/L 23-31 CALCIUM 9.2 mg/dL 8.8-10 CREATININE, Serum 1.36 mg/dL H 0.72-1.25 eGFR(CKD-EPI 2020) 58 mL/min L >60 Mar 11, 2025 01:31 PM [facility] LIPID PANEL, NON FASTING SERUM Specimen Type: SERUM Comment: Verified by repeat analysis. Critical result acknowledged. DR POND [id number]@15:21. Ordering Provider: JENNY POND Report Released Date/Time: Mar 02, 2025 03:57 PM Reporting Lab: [facility] [address] [facility] [address] Performing Lab: [address] [address] CHOLESTEROL 211 mg/dL H TRIGLYCERIDE 97 mg/dL 0-150 LDL calculated 104 mg/dL 0-129 CHOL/HDL 2.4 HDL CHOLESTEROL 88 mg/dL >40 Mar 11, 2025 01:31 PM [facility] PSA SERUM Specimen Type: SERUM No comment entered. Ordering Provider: JENNY POND Report Released Date/Time: Mar 02, 2025 03:57 PM Reporting Lab: [facility] [address] [facility] [address] Performing Lab: [address] [address] PSA 1.2 ng/mL 0-4 Mar 11, 2025 01:31 PM [facility] LIVER FUNCTION SERUM Specimen Type: SERUM Comment: Verified by repeat analysis. Critical result acknowledged. DR POND, [id number]@15:21. Ordering Provider: JENNY POND Report Released Date/Time: Mar 02, 2025 03:57 PM Reporting Lab: [facility] [address] [facility] [address] Performing Lab: [facility] [address] [facility] [address] PROTEIN,TOTAL 7.7 g/dL 6.4-8.3 ALBUMIN 4.4 g/dL [...] Pain Height Weight Body Mass Index Source Mar 15, 2025 01:01 PM 98.3 F 75 /min 106/71 mm[Hg] 20 /min 97 % 7 68 in 258 lb 39 [facility] Social History: Smoking Status (Most current) and Tobacco Use (All prior to encounter date) This section includes the most current, and the historical, smoking and tobacco- related health factors from the [place] facility where the Encounter took place. Current Smoking Status This section includes the most current smoking, or tobacco-related health factor, from the PR facility where the Encounter took place. Date/Time Current Smoking Status Comment Facil ity Mar 15, 2025 01:00 PM VA-TOBACCO NEVER U SED CIGARETTES [facility] Tobacco Use History This section includes a history of the smoking, or tobacco-related health factors, that were collected on or before the date of the Encounter. The data comes from the PR facility where the Encounter took place. Date/Time Smoking Status/Tobacco Use Comment F acility Mar 15, 2025 01:00 PM VA-TOBACCO NEVER U SED OTHER TYPE [facility] Mar 17, 2024 09:29 AM VA-TOBACCO NEVER USED [facility] Advance Directives: All historical and current Section Date Range: From patient's date of to the date document was created. This section includes ALL of a patient's completed or amended [place] Advance and Rescinded Directives. The entries below indicate that a directive exists for the patient, but an actual copy is not included with this document. The data comes from all [place] facilities. Date Advance Directives Provider Source Apr 15, 2024 ADVANCE DIRECTIVE PATT BATISTA [facility] Radiology Reports: +/- 30 days of the encounter Radiology Reports For cases when an order for radiology services may have been completed prior to the date of the Encounter, the report list includes the Radiology Reports that were completed up to 30 days before dateof the Encounter. For cases when an order for radiology services may have been completed after the date of the Encounter, the report list also includes the Radiology Reports that were completed up to30 days after date of the Encounter. The data comes from all PR treatment facilities. Date/Time Radiology Report Provider Source Mar 31, 2025 01:26 PM ULTRASOUND KIDNEYS : CALVIN BOSS [id number] [phone] M Exm Date: MAR 31, 2025@13:26 Req Phys: JENNY POND Loc: [facility] PACT 7 RN (Req'g Loc) Img Loc: ULTRASOUND Service: Unknown [facility] [address] (Case [id number] COMPLETE) ULTRASOUND KIDNEYS (US Detailed) CPT:52179 Reason for Study: decline in kidney function Clinical History: Report Status: Verified Date Reported: MAR 31, 2025 Date Verified: MAR 31, 2025 Biodiesel Plant Manager E-Sig:/ES/LACEY VALLADARES Report: US EXAM ABDO BACK WALL COMP , 03/31/2025 TECHNIQUE: Real-time grayscale and color imaging of the kidneys. INDICATION: decline in kidney function COMPARISON: None FINDINGS: The right kidney measures 10.7 cm in long axis. Normal flow to the right kidney. No hydronephrosis. The left kidney measures 10.5 cm in long axis. Normal flow to the left kidney. No hydronephrosis. A 2.3 x 2.6 x 2.4 severe simple cyst is present in the mid aspect of the left kidney. No urolithiasis. Impression: 1. No remarkable sonographic abnormality. No hydronephrosis on either side. Primary Diagnostic Code: No immediate attention required Primary Interpreting Staff: LACEY VALLADARES, Staff Physician (Biodiesel Plant Manager) /LACEY DON [facility] Encounter Notes: All associated encounter notes This section contains the clinical notes associated to the Encounter. Date/Time Encounter Note(s) Provider Source Mar 15, 2025 01:17 PM PRIMARY CARE NURSE PRACTITIONER OUTPATIENT NOTE: LOCAL TITLE: NURSE PRACTITIONER OUTPATIENT NOTE STANDARD TITLE: PRIMARY CARE NURSE PRACTITIONER OUTPATIENT NOTE DATE OF NOTE: MAR 15, 2025@13:17 ENTRY DATE: MAR 15, 2025@13:17:51 AUTHOR: JENNY POND COSIGNER: URGENCY: STATUS: COMPLETED Chief complaint: Patient is a 65 year old . HPI: Pleasant male [place] here to follow up. His sodium was critically low and he was advised to go to the ER, he was at a casino and chose not to go despite knowing the risks. He says he is feels good. We will recheck it today. I explained how drinking alcohol impacts this. Right hip pain, he is hoping for surgery in the Fall, follows [facility], i suggested diclofenac gel, he was educated on use. Allergies: Patient has answered NKA The following VA and Non-VA meds were reconciled with patient. The patient was educated on the use of the medications including indication and side effects. Active and Recently Outpatient Medications (excluding Supplies): Active Outpatient Medications Status === 1) AMLODIPINE BESYLATE 5MG TAB TAKE ONE TABLET BY MOUTH ONCE ACTIVE (S) DAILY FOR BLOOD PRESSURE/HEART, DO NOT TAKE WITH GRAPEFRUIT JUICE Indication: FOR HIGH BLOOD PRESSURE 2) BUPROPION HCL 300MG 24HR SA TAB TAKE ONE TABLET BY MOUTH ACTIVE ONCE DAILY Indication: FOR MAJOR DEPRESSIVE DISORDER 3) ESCITALOPRAM OXALATE 20MG TAB TAKE ONE TABLET BY MOUTH ONCE ACTIVE DAILY FOR MOOD/DEPRESSION Indication: FOR MAJOR DEPRESSIVE DISORDER 4) TIRZEPATIDE WL 5MG/0.5ML SOLN INJ PEN INJECT 5MG/0.5ML ACTIVE SUBCUTANEOUSLY WEEKLY Indication: OBESITY 5) TRAZODONE HCL 100MG TAB TAKE TWO TABLETS BY MOUTH AT BEDTIME ACTIVE Indication: FOR MAJOR DEPRESSIVE DISORDER Pending Outpatient Medications Status === 1) DICLOFENAC NA 1% TOP GEL APPLY 4 GRAMS TOPICALLY FOUR TIMES PENDING A DAY FOR OSTEOARTHRITIS - USE DOSING CARD PROVIDED IN BOX Indication: HIP PAIN Active Non-VA Medications Status === 1) Non-VA ATENOLOL 25MG TAB 25MG BY [...] BY MOUTH ACTIVE 8) Non-VA OTHER CAP/TAB FRUIT AND VEGGIE COMPLEX BY MOUTH ACTIVE 9) Non-VA OTHER CAP/TAB SUPER BEET BY MOUTH ACTIVE 10) Non-VA OTHER CAP/TAB SUPER BEETS BY MOUTH ACTIVE 11) Non-VA OTHER CAP/TAB SUPER FRUIT/VEGGIES BY MOUTH ACTIVE 12) Non-VA VITAMIN B COMPLEX CAP 1 CAPSULE BY MOUTH ACTIVE 18 Total Medications Review of Systems: Constitutional: (-)for Fevers, chills, weakness, nights sweats On examination: 98.3 F [36.8 C] (03/15/2025 13:)106/71 (03/15/2025 13:01)75 (03/15/2025 13:01)20 (03/15/2025 13:)7 (03/15/2025 13:)BMI: 39.3258 lb [117.03 kg] (03/15/2025 13:) [place] is alert and oriented X3 Cardiovasc: 2plus [...] List is the source for the followin. Obesity - now on GLP-1, some loss noted. 2. Alcohol intake above recommended sensible limits - see above. 3. Hypertension - well controlled. 4. Hyperlipidemia - improvement noted. Today I spent 40 minutes on some or all of the following: chart review, history, physical examination, treatment planning, education and counseling of the patient/family/palliative care nurse, placing orders, communicating with other health care providers, completing health and wellness screenings (see below) and documentation in the electronic health record. Follow up visit in 6 mos. Medication Reconciliation: Outpatient: Has the patient been taking medications as documented in the EMLR? YES: The patient has been taking medications as documented in the EMLR. Essential Medication List for Review used to complete this medication reconciliation. INCLUDED IN THIS LIST: Alphabetical list of active outpatient prescriptions dispensed from this [facility] (local) and dispensed from another VA or [facility] facility (remote) as well as inpatient orders [...] with a VA or non-VA provider. /emiliano/ OTIS Romeo DNP, SUSY Primary Care Nurse Practitioner Signed: 03/15/2025 13:21 JENNY POND [facility] Mar 15, 2025 01:04 PM PREVENTIVE MEDICINE NURSING NOTE: LOCAL TITLE: CLINICAL REMINDERS/NURSING STANDARD TITLE: PREVENTIVE MEDICINE NURSING NOTE DATE OF NOTE: MAR 15, 2025@13:04 ENTRY DATE: MAR 15, 2025@13:05 AUTHOR: EVAN AGUILARIGNER: URGENCY: STATUS: COMPLETED Tobacco Use Screening: The patient has never smoked cigarettes. The patient has never used other types of tobacco. /emiliano/ Evan Aguilar, Health Electrical Controls Engineer NITROGLYCERIN DISTRIBUTOR,PRIMARY CARE Signed: 03/15/2025 13:05 EVAN AGUILAR [facility] Mar 11, 2025 03:30 PM PRIMARY CARE NURSE PRACTITIONER OUTPATIENT NOTE: LOCAL TITLE: NURSE PRACTITIONER OUTPATIENT NOTE STANDARD TITLE: PRIMARY CARE NURSE PRACTITIONER OUTPATIENT NOTE DATE OF NOTE: MAR 11, 2025@15:30 ENTRY DATE: MAR 11, 2025@15:30:53 AUTHOR: JENNY POND EXP AUGUSTIGNER: URGENCY: STATUS: COMPLETED Alerted by lab of critical sodium level. I was not able to reach the . I did reach his Rosa and explained findings to her and that he needs to go to ER today. I explained risks associated with this finding. She will let him know. /emiliano/ OTIS Romeo DNP, SUSY Primary Care Nurse Practitioner Signed: 03/11/2025 15:32 JENNY POND [facility]
--- OUTSIDE RECORDS SUMMARY | 2025-03-23 10:30 | XMS_ITS ---
Author Name [facility] [place] Organization [facility] [place] [facility] [place]) Address [address] [place] [address] Care Team Providers Care Deck Worker Name Role Phone JENNY POND Primary Care Provider Unavaila ble Selected Encounter This section includes the information on record at MD for the Encounter. Date/Time Encounter Type Encounter Description Reason Provider Source Mar 23, 2025 02:30 PM MTMS BY PHARM ADDL 15 [facility] - IND ICD-10-CM F32.A Depression, unspecified RAGUINDIN,JASP ER BRENDON D E Encounter Template Text not used by MD Assessments - Encounter Diagnoses This section includes the primary and secondary diagnoses documented for the Encounter. Date/Time Primary/Secondary Diagnosis Diagnosis Name Provider Source Mar 25, 2025 04:17 PM PRIMARY Depression, unspecified RAGUINDIN,JASP ER BRENDON D [facility] [place] [facility] Mar 25, 2025 04:17 PM SECONDARY Insomnia, unspecified RAGUINDIN,JASP ER BRENDON D [facility] [place] [facility] Plan of Treatment: Future Appointments (+ 6 months) and Future Tests (+/- 45 days) The Plan of Treatment section includes future care activities for the patient from all [facility] treatment[facility]ilities. This section includes future appointments and future orders which are active, pending or scheduled. Future Appointments This section includes appointments that were scheduled to occur 6 months from the date of the Encounter, up to a maximum of 20 appointments. The data comes from all [facility]. Appointment Date/Time Appointment Type Appointme nt Facility Name Mar 24, 2025 10:00 AM AM[facility]ATORY - NONE [facility] Mar 24, 2025 01:00 PM [facility] Mar 31, 2025 10:00 AM AMB[facility]ATORY - NONE [facility] Mar 31, 2025 01:00 PM [facility] Apr 20, 2025 03:00 PM AMBULATORY - MEDICINE [facility] Apr 21, 2025 10:00 AM AMBULATORY - NONE [facility] Apr 28, 2025 10:00 AM AMBULATORY - NONE [facility] May 06, 2025 02:30 PM AMBULATORY - MEDICINE [facility] C [facility] Jul 06, 2025 11:30 AM [facility] Sep 15, 2025 01:00 PM AMBULATORY - MEDICINE [facility] Active, Pending, and Scheduled Orders This section includes a listing of several types of active, pending, and scheduled orders, including clinic medications orders, diagnostic test orders, procedure orders and consult orders; where the start date of the order is 45 days before the date of the Encounter or 45 days after the date of theEncounter. The data comes from all [facility]. Test Date/Time Test Type Test Details Facility Name May 04, 2025 04:40 PM Consult Order [facility] Cons Fish Protector's Choice [facility] Lab Results: +/- 30 days of the [...] Type Comment Mar 15, 2025 01:40 PM [facility] BASIC METABOLIC PANEL (non-fasting) SERUM Spe cimen Type: SERUM No comment entered. Ordering Provider: SAMANTHA POND Report Released Date/Time: Mar 15, 2025 01:12 PM Reporting Lab: [address] [address] Performing Lab: [address] [address] UREA NITROGEN 18 mg/dL 8-26 GLUCOSE 91 mg/dL 65-100 SODIUM 130 mmol/L L 136-145 POTASSIUM 5.1 mmol/L 3.5-5.1 CHLORIDE 91 mmol/L L 98-107 CO2 29 meq/L 23-31 CALCIUM 9.5 mg/dL 8.8-10 CREATININE, Serum 1.87 mg/dL H 0.72-1.25 eGFR(CKD-EPI 2020) 40 mL/min L >60 Mar 11, 2025 01:31 PM [facility] CBC BLOOD Specimen Type: BLOOD No comment entered. Ordering Provider: JENNY POND Report Released Date/Time: Mar 02, 2025 03:57 PM Reporting Lab: [address] [address] Performing Lab: [address] [address] WBC 7.89 10*3/uL 4.50-11.00 RBC 3.80 10*6/uL L 4.23-5.66 HGB 12.9 g/dL 12.8-17 HCT 35.8 L 39.2-50.4 MCV 94.2 fL 82-99 MCHC 36.0 g/dL H 30.8-35.1 PLT 299 10*3/uL 140-360 MPV 8.6 fL L 9.2-12.4 RDW-CV 11.1 L 12.0-16.0 MCH 33.9 pg H 26.2-32.6 Mar 11, 2025 01:31 PM [facility] LIPID PANEL, NON FASTING SERUM Specimen Type: SERUM Comment: Verified by repeat analysis. Critical result acknowledged. DR POND, [id number]@15:21. Ordering Provider: JENNY POND Report Released Date/Time: Mar 02, 2025 03:57 PM Reporting Lab: [address] [place] [address] Performing Lab: [facility] [address] [facility] [address] CHOLESTEROL 211 mg/dL H TRIGLYCERIDE 97 mg/dL 0-150 LDL calculated 104 mg/dL 0-129 CHOL/HDL 2.4 HDL CHOLESTEROL 88 mg/dL >40 Mar 11, 2025 01:31 PM [facility] BASIC METABOLIC PANEL (non-fasting) SERUM Spe cimen Type: SERUM Comment: Verified by repeat analysis. Critical result acknowledged. DR POND [id number]@15:21. Ordering Provider: JENNY POND Report Released Date/Time: Mar 02, 2025 03:57 PM Reporting Lab: [address] [address] Performing Lab: [address] [address] UREA NITROGEN 15 mg/dL 8-26 GLUCOSE 105 mg/dL H 65-100 SODIUM 122 mmol/L LL 136-145 POTASSIUM 4.6 mmol/L 3.5-5.1 CHLORIDE 88 mmol/L L 98-107 CO2 28 meq/L 23-31 CALCIUM 9.2 mg/dL 8.8-10 CREATININE, Serum 1.36 mg/dL H 0.72-1.25 eGFR(CKD-EPI 2020) 58 mL/min L >60 Mar 11, 2025 01:31 PM [facility] PSA SERUM Specimen Type: SERUM No comment entered. Ordering Provider: JENNY POND Report Released Date/Time: Mar 02, 2025 03:57 PM Reporting Lab: [facility] [address] [facility] [address] Performing Lab: [address] [address] PSA 1.2 ng/mL 0-4 Mar 11, 2025 01:31 PM [facility] LIVER FUNCTION SERUM Specimen Type: SERUM Comment: Verified by repeat analysis. Critical result acknowledged. DR POND [id number]@15:21. Ordering Provider: JENNY POND Report Released Date/Time: Mar 02, 2025 03:57 PM Reporting Lab: [facility] [address] [facility] [address] Performing Lab: [facility] [address] [facility] [address] PROTEIN,TOTAL 7.7 g/dL 6.4-8.3 ALBUMIN 4.4 g/dL 3.2-4.6 ALKALINE PHOSPHATASE 67 U/L 40-150 AST 33 U/L 5-34 ALT 27 U/L 0-55 BILIRUBIN, TOTAL 0.6 mg/dL 0.2-1.2 Social History: Smoking Status (Most current) and [...] place. Date/Time Current Smoking Status Comment Devin ity Mar 15, 2025 01:00 PM MD-TOBACCO NEVER U SED CIGARETTES [facility] Tobacco Use History This section includes a history of the smoking, or tobacco-related health factors, that were collected on or before the date of the Encounter. The data comes from the [place] facility where the Encounter took place. Date/Time Smoking Status/Tobacco Use Comment F acnikki Mar 15, 2025 01:00 PM VA-TOBACCO NEVER U SED OTHER TYPE [facility] Mar 17, 2024 09:29 AM VA-TOBACCO NEVER USED [facility] Advance Directives: All historical and current Section Date Range: From patient's date of to the date document was created. This section includes ALL of a patient's completed or amended [place] Advance and Rescinded Directives. The entries below indicate that a directive exists for the patient, but an actual copy is not included with this document. The data comes from all [place] facilities. Date Advance Directives Provider Source Apr 15, 2024 ADVANCE DIRECTIVE PATT BATISTA [facility] Radiology Reports: +/- 30 days of [...] the Encounter. The data comes from all [place] treatment facilities. Date/Time Radiology Report Provider Source Mar 31, 2025 01:26 PM ULTRASOUND KIDNEYS : CALVIN BOSS [id number] -1960 M Exm Date: MAR 31, 2025@13:26 Req Phys: JENNY POND Loc: [facility] PACT 7 RN (Req'g Loc) Img Loc: ULTRASOUND Service: [facility] [place] [address] (Case [id number] COMPLETE) ULTRASOUND KIDNEYS (US Detailed) CPT:82702 Reason for Study: decline in kidney function Clinical History: Report Status: Verified Date Reported: MAR 31, 2025 Date Verified: MAR 31, 2025 Document Review Attorney E-Sig:/ES/LACEY VALLADARES Report: US EXAM ABDO BACK [...] Primary Interpreting Staff: LACEY VALLADARES, Staff Physician (Document Review Attorney) /LACEY DON [facility] Encounter Notes: All associated encounter notes This section contains the clinical notes associated to the Encounter. Date/Time Encounter Note(s) Provider Source Mar 23, 2025 02:36 PM PHARMACY MEDICATION MGT NOTE: LOCAL TITLE: CLINICAL PHARMACIST F/U NOTE STANDARD TITLE: PHARMACY MEDICATION MGT NOTE DATE OF NOTE: MAR 23, 2025@14:36 ENTRY DATE: MAR 23, 2025@14:36:53 AUTHOR: DELL THOMASON COSIGNER: URGENCY: STATUS: COMPLETED Program: Clinical Pharmacy Provider/Medication Management Speciality: Mental Health ATTENDED BY: [X] Patient [ ] Spouse/Caregiver LENGTH OF SESSION: 30minutes -=-=-=-=-=-=-=-=-=-=-=-=-=-=- =-=-=-=-=-==-=-=-=-=-=-=-=-=- =-=-=-=-=-=-=-=-=-=-=- Name: KARYNCALVIN RE GAN : December ID: 65yo WHITE MALE -=-=-=-=-=-=-=-=-=-=-=-=-=-=- =-=-=-=-=-==-=-=-=-=-=-=-=-=- =-=-=-=-=-=Subjective- [facility] was last seen on [id number] with the following pharmacotherapeutic plan: [ ] No changes [ ] Discontinue: [ ] Initiate: [X] Change the following: reduce/change bupropion to 24hr SA 300mg daily Treating Dx(s): Depression and Insomnia INTERIM HISTORY pt reports doing well. looking forward to 2nd hip replacement in may. noted that this caused difficulty w/ sleep d/t difficulty w/ mobility and pain. otherwise endorsed mood as stable. socializes at [employer]; may have 3-4x drinks during these occasions, ~5x/wk but has been working towards drinking less. reports having no alcohol at home otherwise. he is aware not to take his lorazepam after drinking alcohol; to keep his medications in a safe location and to not share his medications with anyone. medications reviewed. noted that he had no refilled his bupropion. shares that he had been completed his recent supply of 200mg tablets and has been taking once a day. noted some confusion as credit underwriter that it was not the discussed dose reduction from the previous appt; but however, as pt otherwise endorsed feeling stable discussed plan for pt to discard his supply of 300mg tablets and to continue his current dose. medication education provided, to which the pt provided verbal understanding. disclosed no other issues or concerns at this time. -=-=-=-=-=-=-=-=-=-=-=-=-=-=- =-=-=-=-=-==-=-=-=-=-=-=-=-=- =-=-=-=-=-=-Objective- Mental Status Exam Appearance: [X] Unremarkable [X] [...] Judgment [ ] Other: [ ] Abstraction Active problems - Computerized Problem List is the source for the followin. Hyponatremia 2. Obesity 3. Alcohol intake above recommended sensible limits 4. Exposure to potentially hazardous substance 5. Allergic rhinitis 6. Insomnia 7. Hypertension 8. Hyperlipidemia 9. Gastroesophageal reflux disease 10. Depression 11. Osteoarthritis 12. History of total hip arthroplasty ALLERGIES: Patient has answered NKA Active Outpatient Medications (including Supplies): Active Outpatient Medications Status 1) AMLODIPINE BESYLATE 5MG TAB TAKE ONE TABLET BY MOUTH ONCE ACTIVE DAILY FOR BLOOD PRESSURE/HEART, DO NOT TAKE WITH GRAPEFRUIT JUICE Indication: FOR HIGH BLOOD PRESSURE 2) BUPROPION HCL 300MG 24HR SA TAB TAKE ONE TABLET BY MOUTH ACTIVE ONCE DAILY Indication: FOR MAJOR DEPRESSIVE DISORDER 3) DICLOFENAC NA 1% TOP GEL APPLY 4 GRAMS TOPICALLY FOUR TIMES ACTIVE A DAY FOR OSTEOARTHRITIS - USE DOSING CARD PROVIDED IN BOX Indication: HIP PAIN 4) ESCITALOPRAM OXALATE 20MG TAB TAKE ONE TABLET BY MOUTH ONCE ACTIVE DAILY FOR MOOD/DEPRESSION Indication: FOR MAJOR DEPRESSIVE DISORDER 5) TIRZEPATIDE WL 5MG/0.5ML SOLN INJ PEN INJECT 5MG/0.5ML ACTIVE SUBCUTANEOUSLY WEEKLY Indication: OBESITY 6) TRAZODONE HCL 100MG TAB TAKE TWO TABLETS [...] CAPSULE BY MOUTH ACTIVE 18 Total Medications Past psychiatric medications include the following: [ ] Per CPRS: n/a [X] Per Patient: - bupropion 12hr SA 200mg bid x25yrs - escitalopram 20mg daily x1yrs, but uncertain whether this has been helpful - trazodone 200mg hs prn but I take it most nights - lorazepam 0.5mg hs prn but I don't take it every night if I don't need it Vitals: Ht: 68 in [172.7 cm] (03/15/2025 13:01) Wt: 255 lb [115.67 kg] (03/17/2025 11:04) BMI: 38.9 BP: 106/71 (03/15/2025 13:01) HR: 75 (03/15/2025 13:01) Labs: CHEM 7 TREND LAB CUMULATIVE SELECTED Collection DT Spec GLUCOSE BUN CREATIN Sodium K+/Pot CL CO2 03/15/2025 13:40 SERUM 91 18 1.87 H 130 L 5.1 91 L 29 03/11/2025 13:31 SERUM 105 H 15 1.36 H 128 L 4.8 92 L 28 09/14/2024 12:09 SERUM 121 H 14 1.25 133 L 4.3 95 L 28 04/15/2024 14:31 SERUM 109 H 13 1.30 123 L* 5.1 H 88 L 25 CHEM 7 Results Collection DT Spec Sodium K+/Pot CL CO2 GLUCOSE BUN 03/15/2025 13:40 SERUM 130 L 5.1 91 L 29 91 18 03/11/2025 13:31 SERUM 128 L 4.8 92 L 28 105 H 15 09/14/2024 12:09 SERUM 133 L 4.3 95 L 28 121 H 14 04/15/2024 14:31 SERUM 123 L* 5.1 H 88 L 25 109 H 13 LIVER PANEL TREND Collection DT Spec AST ALT T BILI ALK DENNIS T. PROT ALBUMIN 03/11/2025 13:31 SERUM 33 27 0.6 67 7.7 4.4 09/14/2024 12:09 SERUM 30 24 0.8 66 8.2 4.0 04/15/2024 14:31 SERUM 51 H 56 H 0.6 62 7.4 4.1 CBC TREND Collection DT Spec WBC RBC HGB HCT MCV MCH PLT 03/11/2025 13:31 BLOOD 7.89 3.80 L 12.9 35.8 L 94.2 33.9 H 299 09/14/2024 12:09 BLOOD 7.11 3.84 L 13.4 37.8 L 98.4 34.9 H 259 04/15/2024 14:31 BLOOD 6.17 3.54 L 12.1 L 34.3 L 96.9 34.2 H 248 LIPID PANEL TREND Collection DT Spec CHOL HDL CHO/HDL LDL-c TRIG 03/11/2025 13:31 SERUM 211 H 88 2.4 104 97 09/14/2024 12:09 SERUM 238 H 118 H 2.0 99 106 04/15/2024 14:31 SERUM 178 91 H 2.0 80 34 HEMOGLOBIN A1C TREND Collection DT Spec HGBA1c 04/15/2024 14:31 BLOOD 4.7 EKG: n/a Estimated CrCl (based on IBW): ~58mL/min -=-=-=-=-=-=-=-=-=-=-=-=-=-=- =-=-=-=-=-==-=-=-=-=-=-=-=-=- =-=-=-=-=-=-=-=-=-=-=- ASSESSMENT The following review of all active psychotropic and DIAGNOSTIC TECHNICIAN-active agents is to ensure pharmacotherapy is evaluated for safety and efficacy as they relate to behaviorial and physiological changes and outcomes Depression - bupropion 24hr SA 300mg daily > noted that pt had been taking finishing his supply of 12hr SA 200mg tablets instead of taking 300mg which was discussed previously. mood symptoms otherwise stable. will change sig to reflect what pt had been taking - escitalopram 20mg daily - lorazepam 0.5mg daily prn anxiety Insomnia - trazodone 200mg hs PLAN 1. Pharmacotherapy [ ] No changes [ ] Discontinue: [ ] Initiate: [X] Change the following: reduce bupropion to 12hr SA 200mg daily 2. Labs/tests: n/a 3. Consult(s) or [...] Reduction [ ] Other: RTC Interval: every 12weeks Next Apt: tbd [facility] was provided credit underwriter's contact information and instructed to contact credit underwriter as needed for any changes to scheduling or concerns otherwise. is aware of actions to take if they feel unsafe, including calling the [facility] Crisis Line (#[phone]); calling 911; or going to the nearest urgent care or emergency room. The is also aware of how to contact the clinic should the require additional services prior to the next appointment. Time spent on chart review, session, and documentation: 30minutes /es/ Dell Thomason PharmD Clinical Pharmacist Practitioner Signed: 03/26/2025 10:20 DELL THOMASON MD CNTL [facility]
--- OUTSIDE RECORDS SUMMARY | 2025-04-28 06:00 | XMS_ITS | Encounter Summary ---
Author Name [facility] [place] Organization [place] Address [address] [place] [id number] Care Team Providers Care Rn Compliance Name Role Phone JENNY POND Primary Care Provider Unavaila [facility] Selected Encounter This section includes the information on record at [place] for the Encounter. Date/Time Encounter Type Encounter Description Reason Provider Source Apr 28, 2025 10:00 AM [facility] IVNTJ GRP EA ADDL WEIGHT MGMT & MOVE! PROG - GRP ICD-10-CM E66.812 Obesity, class 2 JUAN DANIEL SANCHEZ Zach Encounter Template Text not used by [place] Assessments - Encounter Diagnoses This section includes the primary and secondary diagnoses documented for the Encounter. Date/Time Primary/Secondary Diagnosis Diagnosis Name Provider Source May 01, 2025 05:55 PM PRIMARY Obesity, class 2 [facility]EL S[facility] May 01, 2025 05:55 PM SECONDARY Body mass index [BMI] 38.0-38.9, adult [facility] Plan of Treatment: Future Appointments [...] Date/Time Appointment Type Appointme nt Facility Name May 06, 2025 02:30 PM AMBULATORY - MEDICINE [facility] Jul 06, 2025 11:30 AM AMBULATORY - PSYCHIATRY [facility] Sep 15, 2025 01:00 PM AMBULATORY - MEDICINE [facility] Active, Pending, and Scheduled Orders This section includes a listing of several types of active, pending, and scheduled orders, including clinic medications orders, diagnostic test orders, procedure orders and consult orders; where the start date of the order is 45 days before the date of the Encounter or 45 days after the date of theEncounter. The data comes from all [facility]. Test Date/Time Test Type Test Details Facility Name May 04, 2025 04:40 PM Consult Order COMM[facility]ITY CARE-[facility] SURGICAL Cons Scrap Hooker's Choice [facility] Vital Signs: All taken on the encounter date This section contains inpatient and outpatient Vital Signs collected on the date of the Encounter. Date/Time Temperature Pulse Blood Pressure Respiratory Rate SP02 Pain Height Weight Body Mass Index Source Apr 28, 2025 10:42 AM 252 lb 38 [facility] Advance Directives: All historical and current Section Date Range: From patient's date of to the date document was created. This section includes ALL of a patient's completed or amended [place] Advance and Rescinded Directives. The entries below indicate that a directive exists for the patient, but an actual copy is not included with this document. The data comes from all [facility]. Date Advance Directives Provider Source Apr 15, 2024 ADVANCE DIRECTIVE PATT BATISTA [facility] Radiology Reports: +/- 30 days of the [...] the Encounter. The data comes from all [facility]. Date/Time Radiology Report Provider Source Mar 31, 2025 01:26 PM ULTRASOUND KIDNEYS : CALVIN BOSS [id number] -1960 M Exm Date: MAR 31, 2025@13:26 Req Phys: JENNY POND Loc: [facility] PACT 7 RN (Req'g Loc) Img Loc: ULTRASOUND Service: Unknown [facility] [place] [address] (Case [id number] COMPLETE) ULTRASOUND KIDNEYS ([place] Detailed) CPT:71399 Reason for Study: decline in kidney function Clinical History: Report Status: Verified Date Reported: MAR 31, 2025 Date Verified: MAR 31, 2025 Horse Breaker E-Sig:/ES/LACEY VALLADARES Report: US EXAM ABDO BACK [...] Primary Interpreting Staff: LACEY VALLADARES, Staff Physician (Maria Guadalupe) /LACEY DON [facility] Encounter Notes: All associated encounter notes This section contains the clinical notes associated to the Encounter. Date/Time Encounter Note(s) Provider Source May 01, 2025 05:55 PM MOVE NOTE: LOCAL TITLE: WEIGHT MANAGEMENT/MOVE! OUTPATIENT GROUP NOTE STANDARD TITLE: MOVE NOTE DATE OF NOTE: MAY 01, 2025@17:55 ENTRY DATE: MAY 01, 2025@17:55:29 AUTHOR: JUAN DANIEL SANCHEZ COSIGNER: URGENCY: STATUS: COMPLETED participated in MOVE! Group Counseling via [facility] on April 28, 2025. The was provided with information on [facility]VC and has given verbal consent to use group VVC services for their healthcare. The copy of the Group Telehealth Agreement has been mailed to the . The Veterans location/emergency contact number were confirmed. The Emergency Call Relay Center ([phone]) was available. The visit was locked for security and privacy. identified with 2 identifiers: [ ] Full Name [ ] Address Veterans attended the [facility] MOVE! group session on this date. MOVE! is a program designed to provide education about weight management skills to overweight and obese Veterans. Group members shared their weights and combined to lost 1.7 pounds since last group attended and 226 pounds since the beginning of the group. The group facilitators began the session by reviewing the previous weeks topic (Fine Tune Your Physical Activity). Participants were asked to share their progress toward achieving their goals and to share their experiences with keeping a food and physical activity log over the past week. Positive feedback was given to the Veterans for their efforts. Session #16 (Maintain Your Progress) was then conducted using the MOVE! Workbook. Facilitators discussed how Veterans can work to maintain the progress they have made in the MOVE! Program. The core weight management tools from the MOVE! Program were reviewed. Strategies to stay motivated after the program ends were shared. Finally, Veterans set new goals for the six months following the MOVE! Program. The objectives accomplished at todays session were: 1. Discussed how to maintain weight loss. 2. Reviewed the importance of body image. 3. Taught Veterans the eight tips for staying motivated. 4. Encouraged Veterans to be proud of the healthy changes they have made! Participants were encouraged to continue recording weight regularly and log all food and physical activity. 's reported weight was 252.0 lbs. and gained 1.0 pound since last group attended. Dx: Obesity Class 2 BMI 38.0-38.9 The session lasted for 1 hour in duration. /emiliaon/ JUAN DANIEL SANCHEZ, Ph.D. CLINICAL PSYCHOLOGIST Signed: 05/01/2025 18:06 Receipt Acknowledged By: 05/04/2025 15:32 /es/ JUDAH GOYAL MA Chamber Worker 05/04/2025 09:26 /es/ [employer] Registered Dietitian JU[facility] DANI[facility]Z [facility]
--- OUTSIDE RECORDS SUMMARY | 2025-04-30 09:21 | XMS_ITS ---
Author Name [facility] [place] [place] [facility] [place] Address [address] [place] [id number] Care Team Providers Care Bartender Manager Name Role Phone JENNY POND Primary Care Provider Unavaila ble Selected Encounter This section includes the information on record at [place] for the Encounter. Date/Time Encounter Type Encounter Description Reason Pro vider Source Apr 30, 2025 01:21 PM Outpatient Encounter ADMIN PAT ACTIVTIES (MASNONCT) IHE Encounter Template Text not used by [place] Plan of Treatment: Future Appointments (+ 6 months) and Future Tests (+/- 45 days) The Plan of Treatment section includes future care activities for the patient from all [place] treatmentfacilities. This section includes future appointments and future orders which are active, pending or scheduled. Future Appointments This section includes appointments that were scheduled to occur 6 months from the date of the Encounter, up to a maximum of 20 appointments. The data comes from all [place] treatment facilities. Appointment Date/Time Appointment Type Appointme nt Facility Name May 06, 2025 02:30 PM [facility] Jul 06, 2025 11:30 AM AMBULAT[facility] [place] [facility] Sep 15, 2025 01:00 PM AMBULATORY - MEDICINE [facility] Active, Pending, and Scheduled Orders This section includes a listing of several types of active, pending, and scheduled orders, including clinic medications orders, diagnostic test orders, procedure orders and consult orders; where the start date of the order is 45 days before the date of the Encounter or 45 days after the date of theEncounter. The data comes from all [place] treatment facilities. Test Date/Time Test Type Test Details Facility Name May 04, 2025 04:40 PM Consult Order [facility] SURGICAL Cons Baggage Checker's Choice [facility] Social History: Smoking Status (Most current) and Tobacco Use (All prior to encounter date) This section includes the most current, and the historical, smoking and tobacco- related health factors from the [place] facility where the Encounter took place. Current Smoking Status This section includes the most current smoking, or tobacco-related health factor, from the [place] facility where the Encounter took place. Date/Time Current Smoking Status Comment Facil ity Mar 15, 2025 01:00 PM [place]-TOBACCO NEVER U SED CIGARETTES [facility] Tobacco Use History This section includes a history of the smoking, or tobacco-related health factors, that were collected on or before the date of the Encounter. The data comes from the [place] facility where the Encounter took place. Date/Time Smoking Status/Tobacco Use Comment F acility Mar 15, 2025 01:00 PM [place]-TOBACCO NEVER U SED OTHER TYPE [facility] Mar 17, 2024 09:29 AM [place]-TOBACCO NEVER USED [facility] Advance Directives: All historical and current Section Date Range: From patient's date of to the date document was created. This section includes ALL of a patient's completed or amended [place] Advance and Rescinded Directives. The entries below indicate that a directive exists for the patient, but an actual copy is not included with this document. The data comes from all [place] facilities. Date Advance Directives Provider Source Apr 15, 2024 ADVANCE DIRECTIVE PATT BATISTA [facility] Radiology Reports: +/- 30 days of [...] the Encounter. The data comes from all [place] treatment facilities. Date/Time Radiology Report Provider Source Mar 31, 2025 01:26 PM ULTRASOUND KIDNEYS : CALVIN BOSS [id number] M Exm Date: MAR 31, 2025@13:26 Req Phys: JENNY POND Loc: [facility] PACT 7 RN (Req'g Loc) Img Loc: ULTRASOUND Service: Unknown [place] [address] (Case [id number] COMPLETE) ULTRASOUND KIDNEYS (US Detailed) CPT:76769 Reason for Study: decline in kidney function Clinical History: Report Status: Verified Date Reported: MAR 31, 2025 Date Verified: MAR 31, 2025 Maria Guadalupe E-Sig:/ES/LACEY VALLADARES Report: US EXAM ABDO BACK [...] immediate attention required Primary Interpreting Staff: LACEY VALLADARES Staff Physician (Gas Specialist) /LACEY DON [facility] Encounter Notes: All associated encounter notes This section contains the clinical notes associated to the Encounter. Date/Time Encounter Note(s) Provider Source Apr 30, 2025 01:21 PM ADMINISTRATIVE NOT E: LOCAL TITLE: CCC: SCHEDULING ADMINISTRATION STANDARD TITLE: ADMINISTRATIVE NOTE DATE OF NOTE: APR 30, 2025@13:21:43 ENTRY DATE: APR 30, 2025@13:21:44 AUTHOR: KJ HIGGINS EXP COSIGNER: URGENCY: STATUS: COMPLETED CCC: SCHEDULING ADMINISTRATION Has ADDENDA Caller Verification Call Back Number: Caller/Recipient Relation to Patient: Self Caller Name: CALVNI BOSS Administrative Administrative Note Reason: Other Administrative Note Comments: kindly requesting a referral be placed to see an domain architect at the [facility] [phone] IMPORTANT: This note was created by [facility] Clinical Contact Center staff. Please do not alert the staff member by adding them as a signer for future communications. Alerts are not monitored by this user. /emiliano/ KJ HIGGINS VISN 1 [facility] Signed: 04/30/2025 13:21 Receipt Acknowledged By: 05/04/2025 11:42 /emiliano/ Evan Lui, Health Applied Anthropologist CHAIR INSPECTOR AND LEVELER,PRIMARY CARE 05/04/2025 16:06 /emiliano/ MARIA MALIK MSN, RN, CNL Primary Care RN 05/04/2025 ADDENDUM STATUS: COMPLETED Unable to get records previously as practice was relocating, will contact to request again. /emiliano/ MARIA MALIK MSN, RN, CNL Primary Care RN Signed: 05/04/2025 16:13 KJ HIGGINS [place] [facility]
--- OUTSIDE RECORDS SUMMARY | 2025-05-04 05:39 | XMS_ITS ---
Author Name [facility] [place] Organization [facility] [place] Address [address] [place] [id number] Care Team Providers Care Software Tools Developer Name Role Phone JENNY POND Primary Care Provider Unavaila ble Selected Encounter This section includes the information on record at [place] for the Encounter. Date/Time Encounter Type Encounter Description Reason Pro vider Source May 04, 2025 09:39 AM Outpatient Encounter ADMIN PAT ACTIVTIES (MASNONCT) IHE Encounter Template Text not used by [place] Plan of Treatment: Future Appointments (+ 6 months) and Future Tests (+/- 45 days) The Plan of Treatment section includes future care activities for the patient from all [place] treatmentfacilities. This section includes future appointments and future orders which are active, pending or scheduled. Future Appointments This section includes appointments that were scheduled to occur 6 months from the date of the Encounter, up to a maximum of 20 appointments. The data comes from all [place] treatment facilities. Appointment Date/Time Appointment Type Appointme nt Facility Name May 06, 2025 02:30 PM [facility] Jul 06, 2025 11:30 AM [facility] [place] [facility] Sep 15, 2025 01:00 PM AMBULATORY - MEDICINE [facility] Active, Pending, and Scheduled Orders This section includes a listing of several types of active, pending, and scheduled orders, including clinic medications orders, diagnostic test orders, procedure orders and consult orders; where the start date of the order is 45 days before the date of the Encounter or 45 days after the date of theEncounter. The data comes from all [place] treatment facilities. Test Date/Time Test Type Test Details Facility Name May 04, 2025 04:40 PM Consult Order [facility] SUR[facility]ICAL Cons Finisher Cold Rolling's Choice [facility] Social History: Smoking Status (Most current) and Tobacco Use (All prior to encounter date) This section includes the most current, and the historical, smoking and tobacco- related health factors from the [place] facility where the Encounter took place. Current Smoking Status This section includes the most current smoking, or tobacco-related health factor, from the [place] facility where the Encounter took place. Date/Time Current Smoking Status Comment Facil ity Mar 15, 2025 01:00 PM [place]-TOBACCO NEVER U SED CIGARETTES [facility] Tobacco Use History This section includes a history of the smoking, or tobacco-related health factors, that were collected on or before the date of the Encounter. The data comes from the [place] facility where the Encounter took place. Date/Time Smoking Status/Tobacco Use Comment F acility Mar 15, 2025 01:00 PM [place]-TOBACCO NEVER U SED OTHER TYPE [facility] Mar 17, 2024 09:29 AM [place]-TOBACCO NEVER USED [facility] Advance Directives: All historical and current Section Date Range: From patient's date of to the date document was created. This section includes ALL of a patient's completed or amended [place] Advance and Rescinded Directives. The entries below indicate that a directive exists for the patient, but an actual copy is not included with this document. The data comes from all [place] facilities. Date Advance Directives Provider Source Apr 15, 2024 ADVANCE DIRECTIVE PATT BATISTA [facility] Encounter Notes: All associated encounter notes This section contains the clinical notes associated to the Encounter. Date/Time Encounter Note(s) Provider Source May 04, 2025 09:40 AM ADMINISTRATIVE NOT E: LOCAL TITLE: CCC: SCHEDULING ADMINISTRATION STANDARD TITLE: ADMINISTRATIVE NOTE DATE OF NOTE: MAY 04, 2025@09:40:02 ENTRY DATE: MAY 04, 2025@09:40:02 AUTHOR: TRAMAINE AGRAWAL EXP COSIGNER: URGENCY: STATUS: COMPLETED CCC: SCHEDULING ADMINISTRATION Has ADDENDA Caller Verification Caller/Recipient Relation to Patient: Self Caller Name: CALVIN BOSS Scheduling Patient Expects Callback: Yes Open Request: None of the above Administrative Administrative Note Reason: Other Administrative Note Comments: Patient is requesting a call back. He said he needs speak with PCP , about a rejection letter he got in the mail, for a hip surgery he is suppose to have next week. HE said the last time he spoke with PCP. He was told everything was all set. IMPORTANT: This note was created by [facility] Clinical Contact Center staff. Please do not alert the staff member by adding them as a signer for future communications. Alerts are not monitored by this user. /es/ TRAMAINE AGRAWAL VISN 1 [facility] Signed: 05/04/2025 09:40 Receipt Acknowledged By: 05/04/2025 11:48 /es/ Evan Lui, Health Scrip Clerk WIND TUNNEL TECHNICIAN,PRIMARY CARE 05/04/2025 16:12 /es/ MARIA MALIK MSN, RN, CNL Primary Care RN 05/04/2025 ADDENDUM STATUS: COMPLETED Talked with Dheeraj patel consut for ortho placed, he had imaging done 04/14. Requested backdate of consult to cover this. Pre op scheduled 05/05 and surgery 05/11. /es/ MARIA MALIK MSN, RN, CNL Primary Care RN Signed: 05/04/2025 16:13 05/04/2025 ADDENDUM STATUS: COMPLETED Signed consult request. /es/ Srinivasan Wilkins MD Staff Physician Signed: 05/04/2025 16:43 TRAMAINE AGRAWAL [facility]
--- OUTSIDE RECORDS SUMMARY | 2025-05-05 04:26 | XMS_ITS | Continuity of Care Document ---
Author Name [facility] Organization [facility] Care Team Providers Care Hat Ironer Name Role Phone [facility] Unavailable Unavailable Problems Combined list of problems from Department of Defense and Veterans Affairs facilities. It does not include entries that were removed or entered in error. Problem Status Onset Date Problem Type Date of Resolution Comments Source Alcohol intake above recommended sensible limits Active Condition [facility] Allergic rhinitis Active Condition [facility] Depression Active Condition [facility] Exposure to potentially hazardous substance Active Condition [facility] Gastroesophageal reflux disease Active Condition [facility] History of total hip arthroplasty Active Condition Mar 17 Entered By: RICHMOND ALVA Comment: posterior for Primary osteoarthritis of Left/right [facility] Hyperlipidemia Active Condition [facility] Hypertension Active Condition [facility] Hyp[facility]atremia Active Condition [facility] Insomnia Active Condition [facility] Obesity Active Condition [facility] Osteoarthritis Active Condition Mar 022023 Entered By: RICHMOND ALVA Comment: Primary osteoarthritis of right hip, and Left hip [facility] Diagnosis: ICD-10-CM E66.812 Obesity, class 2 Active Diagnosis [facility] Diagnosis: ICD-10-CM E66.9 Obesity, unspecified Active Diagnosis [facility] Diagnosis: ICD-10-CM F32.A Depression, unspecified Active Diagnosis [facility] Diagnosis: ICD-10-CM I10 Essential (primary) hypertension Active Diagnosis [facility] Diagnosis: ICD-10-CM Z68.39 Body mass index [BMI] 39.0-39.9, adult Active Diagnosis [facility] Diagnosis: ICD-10-CM F32.89 Other specified depressive episodes Active [facility] Diagnosis: ICD-10-CM G47.00 Insomnia, unspecified Active Diagnosis [facility] Diagnosis: ICD-10-CM Z02.89 Encounter for other administrative examinations Active Diagnosis [facility] Medications Combined list of outpatient medications from Department of Defense and Veterans Affairs facilities.Medications provided include 1) outpatient medications from the last 15 months, and 2) patient-reported medications. Medication Details Route Status Patient Instructions Prescription Expires Prescription Number Last Dispense Date Ordering Provider Order Date Order Qty Source AMLODIPINE BESYLATE 5MG TAB TAKE ONE TABLET BY MOUTH ONCE DAILY FOR BLOOD PRESSURE /HEART, DO NOT TAKE WITH GRAPEFRU IT JUICE ORAL ACTIVE 10/10/2025 [id number] 5 JYOTI MCADAMS I A 2024 90 [facility] ATENOLOL 25MG TAB TAKE ONE TABLET BY MOUTH ONCE DAILY ORAL ACTIVE JYOTI MCADAMS I A 2024 [facility] BUPROPION HCL 200MG 12HR TAB,SA TAKE ONE TABLET BY MOUTH ONCE DAILY ORAL ACTIVE 03/24/2026 [id number] 5 HUMPHREY HOLLOWAY 2024 90 [facility] BUPROPION HCL 300MG 24HR TAB,SA TAKE ONE TABLET BY MOUTH ONCE DAILY FOR MAJOR DEPRESSI VE DISORDER ORAL DISCONT INUED BY PROVIDE R 10/10/2025 [id number] 5 HUMPHREY HOLLOWAY 2024 30 [facility] DICLOFENAC NA 1% GEL,TOP APPLY 4 GRAMS TOPICALL Y FOUR TIMES A DAY FOR OSTEOART HRITIS - USE DOSING CARD PROVIDED IN BOX KUNAL Santoyo ACTIVE 03/16/2026 [id number] 5 JENNY POND 2024 100 [facility] ESCITALOPRA M OXALATE 20MG TAB TAKE ONE TABLET BY MOUTH ONCE DAILY FOR MAJOR DEPRESSI VE DISORDER FOR MOOD/DEP RESSION ORAL ACTIVE 03/24/2026 [id number] 5 HUMPHREY HOLLOWAY 2024 90 [facility] [place] [facility] ESCITALOPRA M OXALATE 20MG TAB TAKE ONE TABLET BY MOUTH ONCE DAILY FOR MAJOR DEPRESSI VE DISORDER FOR MOOD/DEP RESSION ORAL DISCONT INUED 10/10/2025 [id number] HUMPHREY HOLLOWAY 2024 90 [facility] [place] [facility] IBUPROFEN TAB TAKE ADVIL PM BY MOUTH PRN ORAL ACTIVE HUMPHREY HOLLOWAY 2024 [facility] [place] LISINOPRIL 10MG TAB TAKE THREE TABLETS BY MOUTH ONCE DAILY ORAL ACTIVE J[facility]NY POND [facility]24 [facility] LORAZEPAM 0.5MG TAB TAKE ONE TABLET BY MOUTH ONCE DAILY NEEDED ORAL ACTIVE JENNY POND 2023 [facility] MULTIVITAMI NS CAP/TAB TAKE ONE TABLET BY MOUTH ORAL ACTIVE HUMPHREY HOLLOWAY 2024 [facility] [place] OMEPRAZOLE 20MG CAP,EC TAKE 1 CAPSULE BY MOUTH EVERY MORNING 30 MINUTES BEFORE BREAKFAS T ORAL ACTIVE JENNY POND 2023 [facility] [place] TIRZEPATIDE (WT LOSS) 10MG/0.5ML INJ,SOLN,PE N INJECT 10MG/0.5 ML SUBCUTAN EOUSLY WEEKLY WEIGHT LOSS SUBCUT ANEOUS ACTIVE 04/21/2026 [id number] 5 JYOTI MACDAMS 2024 4 [facility] [place] TIRZEPATIDE (WT LOSS) 2.5MG/0.5ML INJ,SOLN,PE N INJECT 2.5MG/0. 5ML SUBCUTAN EOUSLY WEEKLY SUBCUT ANEOUS DISCONT INUED BY PROVIDE R 03/12/2025 [id number] GDULA,JOD I A 2024 4 [facility] [place] [facility] TIRZEPATIDE (WT LOSS) 5MG/0.5ML INJ,SOLN,PE N INJECT 5MG/0.5M L SUBCUTAN EOUSLY WEEKLY SUBCUT ANEOUS DISCONT INUED BY PROVIDE R 03/27/2025 [id number] 5 GDULA,JOD I A 2024 4 [facility] [place] [facility] TIRZEPATIDE (WT LOSS) 7.5MG/0.5ML INJ,SOLN,PE N INJECT 7.5MG/0. 5ML SUBCUTAN EOUSLY WEEKLY OBESITY SUBCUT ANEOUS DISCONT INUED BY PROVIDE R 03/25/2026 [id number] GDULA,JOD I A 2024 4 [facility] [place] TRAZODONE HCL 100MG TAB TAKE TWO TABLETS BY MOUTH AT BEDTIME FOR MAJOR DEPRESSI VE DISORDER ORAL ACTIVE 03/24/2026 [id number] 5 RAGHUMPHREY VÁSQUEZDE D 2024 180 [facility] TRAZODONE HCL 100MG TAB TAKE TWO TABLETS BY MOUTH AT BEDTIME FOR MAJOR DEPRESSI VE DISORDER ORAL DISCONT INUED 10/10/2025 [id number] 5 HUMPHREY HOLLOWAY D 2024 180 [facility] VITAMIN B COMPLEX CAP TAKE 1 CAPSULE BY MOUTH ORAL ACTIVE HUMPHREY HOLLOWAY D 2024 [facility] Immunizations Combined list of available immunizations from the Department of Defense and Veterans Affairs facilities. Immunization Series Date Given Administered By Site Reaction Lot Number CVX Code Drug Processing Mgr Status Comments Source INFLUENZA, UNSPECIFIED FORMULATION 2023 88 complet ed HISTORICA L INFORMATI ON - FROM PATIENT'S RECALL, per statement from vet [facility] INFLUENZA, UNSPECIFIED FORMULATION 2022 88 complet ed HISTORICA L INFORMATI ON - FROM OTHER REGISTRY, [facility] [place] [facility] COVID-19 (MODERNA), MRNA, LNP-S, PF, 100 MCG/0.5ML DOSE OR 50 MCG/0.25ML DOSE 2 2020 207 complet ed HISTORICA L INFORMATI ON - FROM OTHER REGISTRY, Covid Card Lot#: [id number] Mfr: [employer] [facility] [place] [facility] TD (ADULT) 2020 138 complet ed HISTORICA L INFORMATI ON - FROM OTHER REGISTRY, [facility] COVID-19 (MODERNA), MRNA, LNP-S, PF, 100 MCG/0.5ML DOSE OR 50 MCG/0.25ML DOSE 1 2020 207 complet ed HISTORICA L INFORMATI ON - FROM OTHER REGISTRY, Covid Card Lot#: [id number] Mfr: [employer] [facility] [place] [facility] ZOSTER RECOMBINANT 2 2019 187 complet ed HISTORICA L INFORMATI ON - FROM OTHER REGISTRY, [facility] Vaccines [facility] [place] [facility] ZOSTER RECOMBINANT 1 2019 187 complet ed HISTORICA L INFORMATI ON - FROM OTHER REGISTRY, Zoster Vaccines [facility]TR[facility] [place] [facility] Results Combined list of recent chemistry, hematology and other laboratory results from Department of Defense and Veterans Affairs, ranging from 15 months to all on record, depending upon the facility. Order Name Results Value Reference Range Date Interpretation Specimen Comments Source BASIC METABOLI C PANEL (non-fas ting) UREA NITROGEN [MASS/VOLU ME] IN SERUM OR PLASMA 18 mg/dL - 03/15 Specimen Type: SERUM No comment entered. Ordering Provider: MACO POND Report Released Date/Time: Mar 15, 2025 01:12 PM Reporting Lab: [facility] [address] [facility] [address] Performing Lab: [facility] [address] [facility] [address] [facility] BASIC METABOLI C PANEL (non-fas ting) GLUCOSE [MASS/VOLU ME] IN SERUM OR PLASMA 91 mg/dL 65 - 100 03/15 Specimen Type: SERUM No comment entered. Ordering Provider: MACO POND Report Released Date/Time: Mar 15, 2025 01:12 PM Reporting Lab: [facility]ITAL[facility]DE[facility]N [address] [address] Performing Lab: [facility]ITALRDECATUR [facility] CAMPUSN [address] [address] [facility]ITALRDECATUR [facility] CAMPUSN [facility]USE [facility] BASIC METABOLI C PANEL (non-fas ting) SODIUM [MOLES/VOL UME] IN SERUM OR PLASMA 130 mmol/L 136 - 145 03/15 L Specimen Type: SERUM No comment entered. Ordering Provider: MACO POND Report Released Date/Time: Mar 15, 2025 01:12 PM Reporting Lab: [facility]PITALRDECATUR [facility] CAMPUSN [address] [address] Performing Lab: [facility]ITALRDECATUR [facility] CAMPUSN [address] [address] [facility] BASIC METABOLI C PANEL (non-fas ting) POTASSIUM [MOLES/VOL UME] IN SERUM OR PLASMA 5.1 mmol/L 3.5 - 5.1 03/15 Specimen Type: SERUM No comment entered. Ordering Provider: MACO POND Report Released Date/Time: Mar 15, 2025 01:12 PM Reporting Lab: [facility]ITALRDECAT[facility] CAMPUSN [address] [address] Performing Lab: [facility] HOSPITALRL TRN [facility]USE[address] [address] [facility]ITALRDECATUR [facility] CAMPUSN [facility] BASIC METABOLI C PANEL (non-fas ting) CHLORIDE [MOLES/VOL UME] IN SERUM OR PLASMA 91 mmol/L 98 - 107 03/15 L Specimen Type: SERUM No comment entered. Ordering Provider: MACO POND Report Released Date/Time: Mar 15, 2025 01:12 PM Reporting Lab: [facility]OSPITALRCHOCTAW GENERAL HOSPITALTRN [address] [address] Performing Lab: [facility] [place] [facility] [address] [facility] [address] [facility] HOSPITALRL WSTRN MASSUSE [facility] BASIC METABOLI C PANEL (non-fas ting) CARBON DIOXIDE, TOTAL [MOLES/VOL UME] IN SERUM OR PLASMA 29 meq/L 23 - 31 03/15 Specimen Type: SERUM No comment entered. Ordering Provider: MACO POND Report Released Date/Time: Mar 15, 2025 01:12 PM Reporting Lab: [facility] [place] [facility] [address] [facility] [address] Performing Lab: [facility]ENTERUSETS [address] [address] [facility]OSPITALRL TRN [facility]ENTERUSE [facility] BASIC METABOLI C PANEL (non-fas ting) CALCIUM [MASS/VOLU ME] IN SERUM OR PLASMA 9.5 mg/dL 8.8 - 10 03/15 Specimen Type: SERUM No comment entered. Ordering Provider: MACO POND Report Released Date/Time: Mar 15, 2025 01:12 PM Reporting Lab: [facility]OSPITALRL TRN [facility]ENTERUSETS [address] [address] Performing Lab: [facility]ENTERUSETS [address] [address] [facility]OSPITALRL TRN [facility]ENTERUSE [facility] BASIC METABOLI C PANEL (non-fas ting) CREATININE [MASS/VOLU ME] IN SERUM OR PLASMA 1.87 mg/dL 0.72 - 1.25 03/15 H Specimen Type: SERUM No comment entered. Ordering Provider: MACO POND Report Released Date/Time: Mar 15, 2025 01:12 PM Reporting Lab: [facility] [place] [address] [address] Performing Lab: [facility]ENTERUSETS [address] [address] [facility]OSPITALRL TRN [facility]ENTERUSE [facility] BASIC METABOLI C PANEL (non-fas ting) GLOMERULAR FILTRATION RATE/1.73 SQ M.PREDICTE D [VOLUME RATE/AREA] IN SERUM, PLASMA OR BLOOD BY CREATININE -BASED FORMULA (CKD-EPI 2020) 40 mL/min 60 03/15 L Specimen Type: SERUM No comment entered. Ordering Provider: MACO POND Report Released Date/Time: Mar 15, 2025 01:12 PM Reporting Lab: [address] [address] Performing Lab: [address] [address] [facility] BASIC METABOLI C PANEL (non-fas ting) UREA NITROGEN [MASS/VOLU ME] IN SERUM OR PLASMA 15 mg/dL 8 - 26 03/11 Specimen Type: SERUM Comment: Verified by repeat analysis. Critical result acknowledge lazarus POND, [id number]@1 5:21. Ordering Provider: MACO POND Report Released Date/Time: Mar 02, 2025 03:57 PM Reporting Lab: [address] [address] Performing Lab: [address] [address] [facility] BASIC METABOLI C PANEL (non-fas ting) GLUCOSE [MASS/VOLU ME] IN SERUM OR PLASMA 105 mg/dL 65 - 100 03/11 H Specimen Type: SERUM Comment: Verified by repeat analysis. Critical result acknowledge dPhil POND, [id number]@1 5:21. Ordering Provider: MACO POND Report Released Date/Time: Mar 02, 2025 03:57 PM Reporting Lab: [address] [address] Performing Lab: [address] [address] [facility] BASIC METABOLI C PANEL (non-fas ting) SODIUM [MOLES/VOL UME] IN SERUM OR PLASMA 122 mmol/L 136 - 145 03/11 LL Specimen Type: SERUM Comment: Verified by repeat analysis. Critical result acknowledge lazarus POND [id number]@1 5:21. Ordering Provider: MACO POND Report Released Date/Time: Mar 02, 2025 03:57 PM Reporting Lab: [facility] TRN [facility]ENTERUSE[address] [address] Performing Lab: [place] [facility] TRN [facility]ENTERUSETS [address] [address] [facility]ITALRCHOCTAW GENERAL HOSPITALTRN [facility]ENTERUSE [facility] BASIC METABOLI C PANEL (non-fas ting) POTASSIUM [MOLES/VOL UME] IN SERUM OR PLASMA 4.6 mmol/L 3.5 - 5.1 03/11 Specimen Type: SERUM Comment: Verified by repeat analysis. Critical result acknowledge lazarus POND [id number]@1 5:21. Ordering Provider: MACO POND Report Released Date/Time: Mar 02, 2025 03:57 PM Reporting Lab: [facility]OSPITALRL TRN [facility]ENTERUSETS [address] [address] Performing Lab: [facility]ITALRL TRN [facility]ENTERUSE[address] [address] [facility]OS[facility]ITALRL TRN [facility]ENTERUSE [facility] BASIC METABOLI C PANEL (non-fas ting) CHLORIDE [MOLES/VOL UME] IN SERUM OR PLASMA 88 mmol/L 98 - 107 03/11 L Specimen Type: SERUM Comment: Verified by repeat analysis. Critical result acknowledge lazarus POND [id number]@1 5:21. Ordering Provider: MACO POND Report Released Date/Time: Mar 02, 2025 03:57 PM Reporting Lab: [facility]OS[facility]ITALRL TRN [facility]ENTERUSETS [address] [address] Performing Lab: [facility]ITALRL TRN [facility]ENTERUSE[address] [address] [facility]OSPITALRDECATUR MORGAN [facility]OSPITAL-PARK[facility]AY CAMPUSN [facility]ENTERUSE [facility] BASIC METABOLI C PANEL (non-fas ting) CARBON DIOXIDE, TOTAL [MOLES/VOL UME] IN SERUM OR PLASMA 28 meq/L 23 - 31 03/11 Specimen Type: SERUM Comment: Verified by repeat analysis. Critical result acknowledge lazarus POND [id number]@1 5:21. Ordering Provider: MACO POND Report Released Date/Time: Mar 02, 2025 03:57 PM Reporting Lab: [facility] [place] [address] [address] Performing Lab: [facility] [place] [address] [address] [facility]ITALRL WSTRN [facility]USE [facility] BASIC METABOLI C PANEL (non-fas ting) CALCIUM [MASS/VOLU ME] IN SERUM OR PLASMA 9.2 mg/dL 8.8 - 10 03/11 Specimen Type: SERUM Comment: Verified by repeat analysis. Critical result acknowledge lazarus POND [id number]@1 5:21. Ordering Provider: MACO POND Report Released Date/Time: Mar 02, 2025 03:57 PM Reporting Lab: [facility] [place] [address] [address] Performing Lab: [facility]ENTERUSETS [address] [address] [facility]ITALRL TRN [facility]ENTERUSE [facility] BASIC METABOLI C PANEL (non-fas ting) CREATININE [MASS/VOLU ME] IN SERUM OR PLASMA 1.36 mg/dL 0.72 - 1.25 03/11 H Specimen Type: SERUM Comment: Verified by repeat analysis. Critical result acknowledge lazarus POND [id number]@1 5:21. Ordering Provider: MACO POND Report Released Date/Time: Mar 02, 2025 03:57 PM Reporting Lab: [facility] [place] [address] [address] Performing Lab: [facility]ENTERUSETS [address] [address] [facility]ITALRL TRN [facility]ENTERUSE [facility] BASIC METABOLI C PANEL (non-fas ting) GLOMERULAR FILTRATION RATE/1.73 SQ M.PREDICTE D [VOLUME RATE/AREA] IN SERUM, PLASMA OR BLOOD BY CREATININE -BASED FORMULA (CKD-EPI 2020) 58 mL/min 60 03/11 L Specimen Type: SERUM Comment: Verified by repeat analysis. Critical result acknowledge dPhil POND, [id number]@1 5:21. Ordering Provider: MACO POND Report Released Date/Time: Mar 02, 2025 03:57 PM Reporting Lab: [facility] [place] [address] [address] Performing Lab: [facility] [place] [facility] [address] [facility] [address] [facility] [place] [facility] CBC LEUKOCYTES [#/VOLUME] IN BLOOD BY AUTOMATED COUNT 7.89 10*3/uL 4.50 - 11.00 03/11 Specimen Type: BLOOD No comment entered. Ordering Provider: MACO POND Report Released Date/Time: Mar 02, 2025 03:57 PM Reporting Lab: [facility] [place] [address] [address] Performing Lab: [facility] [place] [address] [address] [facility] [place] [facility] CBC ERYTHROCYT ES [#/VOLUME] IN BLOOD BY AUTOMATED COUNT 3.80 10*6/uL 4.23 - 5.66 03/11 L Specimen Type: BLOOD No comment entered. Ordering Provider: MACO POND Report Released Date/Time: Mar 02, 2025 03:57 PM Reporting Lab: [facility] [place] [address] [address] Performing Lab: [facility] [place] [address] [address] [facility] [place] [facility] CBC HEMOGLOBIN [MASS/VOLU ME] IN BLOOD 12.9 g/dL 12.8 - 17 03/11 Specimen Type: BLOOD No comment entered. Ordering Provider: MACO POND Report Released Date/Time: Mar 02, 2025 03:57 PM Reporting Lab: [facility] [place] [address] Performing Lab: [facility] [place] [facility] [address] [facility] [address] [facility] [place] [facility] CBC HEMATOCRIT [VOLUME FRACTION] OF BLOOD BY AUTOMATED COUNT 35.8 39.2 - 50.4 03/11 L Specimen Type: BLOOD No comment entered. Ordering Provider: MACO POND Report Released Date/Time: Mar 02, 2025 03:57 PM Reporting Lab: [facility] [place] [facility] [address] [facility] [address] Performing Lab: [facility] [place] [facility] [address] [facility] [address] [facility] [place] [facility] CBC MCV [ENTITIC VOLUME] BY AUTOMATED COUNT 94.2 fL 82 - 99 03/11 Specimen Type: BLOOD No comment entered. Ordering Provider: MACO POND Report Released Date/Time: Mar 02, 2025 03:57 PM Reporting Lab: [facility] [place] [facility] [address] [facility] [address] Performing Lab: [facility] [place] [facility] [address] [facility] [address] [facility] [place] [facility] CBC MCHC [MASS/VOLU ME] BY AUTOMATED COUNT 36.0 g/dL 30.8 - 35.1 03/11 H Specimen Type: BLOOD No comment entered. Ordering Provider: MACO POND Report Released Date/Time: Mar 02, 2025 03:57 PM Reporting Lab: [facility] [place] [facility] [address] [facility] [address] Performing Lab: [facility] [place] [address] [address] [facility] [place] [facility] CBC PLATELETS [#/VOLUME] IN BLOOD BY AUTOMATED COUNT 299 10*3/uL 140 - 360 03/11 Specimen Type: BLOOD No comment entered. Ordering Provider: MACO POND Report Released Date/Time: Mar 02, 2025 03:57 PM Reporting Lab: [facility] [place] [facility] [address] [facility] [address] Performing Lab: [facility] [place] [facility] [address] [facility] [address] [facility]RL W[facility]N [place] [facility] CBC PLATELET MEAN VOLUME [ENTITIC VOLUME] IN BLOOD BY AUTOMATED COUNT 8.6 fL 9.2 - 12.4 03/11 L Specimen Type: BLOOD No comment entered. Ordering Provider: MACO POND Report Released Date/Time: Mar 02, 2025 03:57 PM Reporting Lab: [facility]RL [facility] [place] [facility] [address] [facility] [address] Performing Lab: [place] [facility] [place] [facility] [address] [facility] [address] [facility]RL WSTRN [place] [facility] CBC ERYTHROCYT E DISTRIBUTI ON WIDTH [RATIO] BY AUTOMATED COUNT 11.1 12.0 - 16.0 03/11 L Specimen Type: BLOOD No comment entered. Ordering Provider: MACO POND Report Released Date/Time: Mar 02, 2025 03:57 PM Reporting Lab: [facility]RL [facility] [place] [facility] [address] [facility] [address] Performing Lab: [place] [facility] [place] [facility] [address] [facility] [address] [facility] [place] [place] [facility] CBC MCH [ENTITIC MASS] BY AUTOMATED COUNT 33.9 pg 26.2 - 32.6 03/11 H Specimen Type: BLOOD No comment entered. Ordering Provider: MACO POND Report Released Date/Time: Mar 02, 2025 03:57 PM Reporting Lab: [facility] [place] [facility] [address] [facility] [address] Performing Lab: [place] [facility] [facility] [address] [facility] [address] [facility] [place] [facility] LIPID PANEL, NON FASTING CHOLESTERO L [MASS/VOLU ME] IN SERUM OR PLASMA 211 mg/dL 03/11 H Specimen Type: SERUM Comment: Verified by repeat analysis. Critical result acknowledge dPhil HUERTALIVAN, [id number]@1 5:21. Ordering Provider: MACO POND Report Released Date/Time: Mar 02, 2025 03:57 PM Reporting Lab: [facility] [place] [address] [address] Performing Lab: [facility] [address] [address] [facility] LIPID PANEL, NON FASTING TRIGLYCERI DE [MASS/VOLU ME] IN SERUM OR PLASMA 97 mg/dL 0 - 150 03/11 Specimen Type: SERUM Comment: Verified by repeat analysis. Critical result acknowledge lazarus POND [id number]@1 5:21. Ordering Provider: MACO POND Report Released Date/Time: Mar 02, 2025 03:57 PM Reporting Lab: [facility] [address] [address] Performing Lab: [facility] [facility]ENTERUSETS [address] [address] [facility]ITALRDECAT[facility]USN [facility]ENTERUSE [facility] LIPID PANEL, NON FASTING CHOLESTERO L IN LDL [MASS/VOLU ME] IN SERUM OR PLASMA BY CALCULATIO N 104 mg/dL 0 - 129 03/11 Specimen Type: SERUM Comment: Verified by repeat analysis. Critical result acknowledge lazarus POND [id number]@1 5:21. Ordering Provider: MACO POND Report Released Date/Time: Mar 02, 2025 03:57 PM Reporting Lab: [facility] [place] [place] [address] [address] Performing Lab: [place] [facility] [facility]USETS [address] [address] [facility]N [facility]ENTERUSE [facility] LIPID PANEL, NON FASTING CHOLESTERO L.TOTAL/CH OLESTEROL IN HDL [MASS RATIO] IN SERUM OR PLASMA 2.4 03/11 Specimen Type: SERUM Comment: Verified by repeat analysis. Critical result acknowledge lazarus POND [id number]@1 5:21. Ordering Provider: MACO POND Report Released Date/Time: Mar 02, 2025 03:57 PM Reporting Lab: [facility] [place] [facility] [address] [facility] [address] Performing Lab: [facility] [place] [address] [address] [facility] [place] [facility] LIPID PANEL, NON FASTING CHOLESTERO L IN HDL [MASS/VOLU ME] IN SERUM OR PLASMA 88 mg/dL 40 03/11 Specimen Type: SERUM Comment: Verified by repeat analysis. Critical result acknowledge lazarus POND [id number]@1 5:21. Ordering Provider: MACO POND Report Released Date/Time: Mar 02, 2025 03:57 PM Reporting Lab: [facility]USETS [address] [address] Performing Lab: [facility] [address] [address] [facility]RL [facility]N [facility]USE [facility] LIVER FUNCTION PROTEIN [MASS/VOLU ME] IN SERUM OR PLASMA 7.7 g/dL 6.4 - 8.3 03/11 Specimen Type: SERUM Comment: Verified by repeat analysis. Critical result acknowledge lazarus POND, [id number]@1 5:21. Ordering Provider: MACO POND Report Released Date/Time: Mar 02, 2025 03:57 PM Reporting Lab: [facility] [place] [address] [address] Performing Lab: [facility] [place] [address] [address] [facility] TRN [facility]ENTERUSE [facility] LIVER FUNCTION ALBUMIN [MASS/VOLU ME] IN SERUM OR PLASMA BY BROMOCRESO L PURPLE (BCP) DYE BINDING METHOD 4.4 g/dL 3.2 - 4.6 03/11 Specimen Type: SERUM Comment: Verified by repeat analysis. Critical result acknowledge lazarus POND [id number]@1 5:21. Ordering Provider: MACO POND Report Released Date/Time: Mar 02, 2025 03:57 PM Reporting Lab: [facility] [place] [address] [address] Performing Lab: [facility] [place] [address] [address] [facility] [place] [facility] LIVER FUNCTION ALKALINE PHOSPHATAS E [ENZYMATIC ACTIVITY/V OLUME] IN SERUM OR PLASMA 67 U/L 40 - 150 03/11 Specimen Type: SERUM Comment: Verified by repeat analysis. Critical result acknowledge lazarus POND, [id number]@1 5:21. Ordering Provider: MACO POND Report Released Date/Time: Mar 02, 2025 03:57 PM Reporting Lab: [facility] [place] [address] [address] Performing Lab: [place] [facility] [place] [address] [address] [facility] [place] [facility] LIVER FUNCTION ASPARTATE AMINOTRANS FERASE [ENZYMATIC ACTIVITY/V OLUME] IN SERUM OR PLASMA BY WITH P-5'-P 33 U/L 5 - 34 03/11 Specimen Type: SERUM Comment: Verified by repeat analysis. Critical result acknowledge lazarus POND, [id number]@1 5:21. Ordering Provider: MACO POND Report Released Date/Time: Mar 02, 2025 03:57 PM Reporting Lab: [facility] [place] [address] [address] Performing Lab: [facility] [place] [address] [address] [facility] [place] [facility] LIVER FUNCTION ALANINE AMINOTRANS FERASE [ENZYMATIC ACTIVITY/V OLUME] IN SERUM OR PLASMA BY WITH P-5'-P 27 U/L 0 - 55 03/11 Specimen Type: SERUM Comment: Verified by repeat analysis. Critical result acknowledge lazarus POND [id number]@1 5:21. Ordering Provider: MACO POND Report Released Date/Time: Mar 02, 2025 03:57 PM Reporting Lab: [facility]ETS [address] [address] Performing Lab: [facility]OSPITALRCHOCTAW GENERAL HOSPITALTRN [facility]ENTERUSE[address] [address] [facility]N [facility]USE [facility] LIVER FUNCTION BILIRUBIN. TOTAL [MASS/VOLU ME] IN SERUM OR PLASMA 0.6 mg/dL 0.2 - 1.2 03/11 Specimen Type: SERUM Comment: Verified by repeat analysis. Critical result acknowledge dPhil POND, [id number]@1 5:21. Ordering Provider: MACO POND Report Released Date/Time: Mar 02, 2025 03:57 PM Reporting Lab: [facility]USN [address] [address] Performing Lab: [address] [address] [facility] PSA PROSTATE SPECIFIC AG [MASS/VOLU ME] IN SERUM OR PLASMA BY IMMUNOASSA Y 1.2 ng/mL 0 - 4 03/11 Specimen Type: SERUM No comment entered. Ordering Provider: MACO POND Report Released Date/Time: Mar 02, 2025 03:57 PM Reporting Lab: [facility]USN [address] [address] Performing Lab: [address] [address] [facility]ITALUSE [facility] OCCULT BLOOD FIT X1 SCREEN (MFP ONLY) HEMOGLOBIN .GASTROINT ESTINAL.LO WER [PRESENCE] IN STOOL BY IMMUNOASSA Y NEGATIVE 10/26 Specimen Type: FECES No comment entered. Ordering Provider: MACO POND Report Released Date/Time: Sep 16, 2024 12:27 PM Reporting Lab: [facility]N [address] [address] Performing Lab: [facility]N [address] [address] [facility]USN [facility]USE [facility] BASIC METABOLI C PANEL (non-fas ting) UREA NITROGEN [MASS/VOLU ME] IN SERUM OR PLASMA 14 mg/dL 7 - 25 09/14 Specimen Type: SERUM No comment entered. Ordering Provider: MACO POND Report Released Date/Time: Sep 08, 2024 08:40 AM Reporting Lab: [facility]RL W[facility]N [facility]ENTERUSE[address] [address] Performing Lab: [place] [facility] [facility]ENTERUSE[address] [address] [facility]ITALR WSTRN [facility]ENTERUSE [facility] BASIC METABOLI C PANEL (non-fas ting) GLUCOSE [MASS/VOLU ME] IN SERUM OR PLASMA 121 mg/dL 65 - 100 09/14 H Specimen Type: SERUM No comment entered. Ordering Provider: MACO POND Report Released Date/Time: Sep 08, 2024 08:40 AM Reporting Lab: [facility]ITALRL TRN [facility]ENTERUSE[address] [address] Performing Lab: [place] [facility] [facility]ENTERUSE[address] [address] [facility]ITALRL W[facility]N [place] [facility] BASIC METABOLI C PANEL (non-fas ting) SODIUM [MOLES/VOL UME] IN SERUM OR PLASMA 133 mmol/L 135 - 145 09/14 L Specimen Type: SERUM No comment entered. Ordering Provider: MACO POND Report Released Date/Time: Sep 08, 2024 08:40 AM Reporting Lab: [place] [facility] [address] Performing Lab: [place] [facility] [facility]ENTERUSETS [address] [address] [facility]ITALR WSTRN [place] [facility] BASIC METABOLI C PANEL (non-fas ting) POTASSIUM [MOLES/VOL UME] IN SERUM OR PLASMA 4.3 mmol/L 3.5 - 5.0 09/14 Specimen Type: SERUM No comment entered. Ordering Provider: MACO POND Report Released Date/Time: Sep 08, 2024 08:40 AM Reporting Lab: [facility] [place] [facility] [address] [facility] [address] Performing Lab: [facility] [place] [facility] [address] [facility] [address] [facility] [place] [facility] BASIC METABOLI C PANEL (non-fas ting) CHLORIDE [MOLES/VOL UME] IN SERUM OR PLASMA 95 mmol/L 100 - 110 09/14 L Specimen Type: SERUM No comment entered. Ordering Provider: MACO POND Report Released Date/Time: Sep 08, 2024 08:40 AM Reporting Lab: [facility] [place] [address] [address] Performing Lab: [place] [facility] [place] [address] [address] [place] [facility] [place] [facility] BASIC METABOLI C PANEL (non-fas ting) CARBON DIOXIDE, TOTAL [MOLES/VOL UME] IN SERUM OR PLASMA 28 meq/L 20 - 30 09/14 Specimen Type: SERUM No comment entered. Ordering Provider: MACO POND Report Released Date/Time: Sep 08, 2024 08:40 AM Reporting Lab: [facility] [place] [address] [address] Performing Lab: [facility] [place] [address] [address] [facility] [place] [place] [facility] BASIC METABOLI C PANEL (non-fas ting) CREATININE [MASS/VOLU ME] IN SERUM OR PLASMA 1.25 mg/dL 0.50 - 1.40 09/14 Specimen Type: SERUM No comment entered. Ordering Provider: MACO POND Report Released Date/Time: Sep 08, 2024 08:40 AM Reporting Lab: [facility] [place] [address] [address] Performing Lab: [facility] [place] [address] [address] [facility] [place] [facility] BASIC METABOLI C PANEL (non-fas ting) GLOMERULAR FILTRATION RATE/1.73 SQ M.PREDICTE D [VOLUME RATE/AREA] IN SERUM, PLASMA OR BLOOD BY CREATININE -BASED FORMULA (CKD-EPI 2020) 64 mL/min 60 09/14 Specimen Type: SERUM No comment entered. Ordering Provider: MACO POND Report Released Date/Time: Sep 08, 2024 08:40 AM Reporting Lab: [facility] [place] [facility] [address] [facility] [address] Performing Lab: [facility] [place] [facility] [address] [facility] [address] [facility] [place] [facility] CBC LEUKOCYTES [#/VOLUME] IN BLOOD BY AUTOMATED COUNT 7.11 10*3/uL 4.50 - 11.00 09/14 Specimen Type: BLOOD No comment entered. Ordering Provider: MACO POND Report Released Date/Time: Sep 08, 2024 08:40 AM Reporting Lab: [facility] [place] [address] [address] Performing Lab: [facility] [place] [facility] [address] [facility] [address] [place] [facility] [place] [facility] CBC ERYTHROCYT ES [#/VOLUME] IN BLOOD BY AUTOMATED COUNT 3.84 10*6/uL 4.23 - 5.66 09/14 L Specimen Type: BLOOD No comment entered. Ordering Provider: MACO POND Report Released Date/Time: Sep 08, 2024 08:40 AM Reporting Lab: [facility] [place] [address] [address] Performing Lab: [facility] [place] [address] [address] [facility] [place] [facility] CBC HEMOGLOBIN [MASS/VOLU ME] IN BLOOD 13.4 g/dL 12.8 - 17 09/14 Specimen Type: BLOOD No comment entered. Ordering Provider: MACO POND Report Released Date/Time: Sep 08, 2024 08:40 AM Reporting Lab: [facility] [place] [facility] [address] [place] [phone] Performing Lab: [facility] [place] [facility] [address] [facility] [address] [facility] [place] [facility] CBC HEMATOCRIT [VOLUME FRACTION] OF BLOOD BY AUTOMATED COUNT 37.8 39.2 - 50.4 09/14 L Specimen Type: BLOOD No comment entered. Ordering Provider: MACO POND Report Released Date/Time: Sep 08, 2024 08:40 AM Reporting Lab: [facility] [place] [facility] [address] [facility] [address] Performing Lab: [facility] [place] [facility] [address] [facility] [address] [facility] [place] [facility] CBC MCV [ENTITIC VOLUME] BY AUTOMATED COUNT 98.4 fL 82 - 99 09/14 Specimen Type: BLOOD No comment entered. Ordering Provider: MACO POND Report Released Date/Time: Sep 08, 2024 08:40 AM Reporting Lab: [facility] [place] [facility] [address] [facility] [address] Performing Lab: [facility] [place] [facility] [address] [facility] [address] [facility] [place] [facility] CBC MCHC [MASS/VOLU ME] BY AUTOMATED COUNT 35.4 g/dL 30.8 - 35.1 09/14 H Specimen Type: BLOOD No comment entered. Ordering Provider: MACO POND Report Released Date/Time: Sep 08, 2024 08:40 AM Reporting Lab: [facility] [place] [facility] [address] [facility] [address] Performing Lab: [facility] [place] [address] [address] [facility] [place] [facility] CBC PLATELETS [#/VOLUME] IN BLOOD BY AUTOMATED COUNT 259 10*3/uL 140 - 360 09/14 Specimen Type: BLOOD No comment entered. Ordering Provider: MACO POND Report Released Date/Time: Sep 08, 2024 08:40 AM Reporting Lab: [facility] [place] [facility] [address] [facility] [address] Performing Lab: [facility] [place] [facility] [address] [facility] [address] [facility] [place] [facility] CBC ERYTHROCYT E DISTRIBUTI ON WIDTH [RATIO] BY AUTOMATED COUNT 11.7 12.0 - 16.0 09/14 L Specimen Type: BLOOD No comment entered. Ordering Provider: MACO POND Report Released Date/Time: Sep 08, 2024 08:40 AM Reporting Lab: [facility] [place] [facility] [address] [facility] [address] Performing Lab: [place] [facility] [facility] [address] [facility] [address] [facility] [place] [facility] CBC MCH [ENTITIC MASS] BY AUTOMATED COUNT 34.9 pg 26.2 - 32.6 09/14 H Specimen Type: BLOOD No comment entered. Ordering Provider: MACO POND Report Released Date/Time: Sep 08, 2024 08:40 AM Reporting Lab: [facility] [place] [facility] [address] [facility] [address] Performing Lab: [place] [facility] [facility] [address] [facility] [address] [facility] [place] [place] [facility] LIPID PANEL, NON FASTING CHOLESTERO L [MASS/VOLU ME] IN SERUM OR PLASMA 238 mg/dL 09/14 H Specimen Type: SERUM No comment entered. Ordering Provider: MACO POND Report Released Date/Time: Sep 08, 2024 08:40 AM Reporting Lab: [facility] [place] [facility] [address] [facility] [address] Performing Lab: [facility] [place] [facility] [address] [facility] [address] [facility] [place] [facility] LIPID PANEL, NON FASTING TRIGLYCERI DE [MASS/VOLU ME] IN SERUM OR PLASMA 106 mg/dL 0 - 150 09/14 Specimen Type: SERUM No comment entered. Ordering Provider: MACO POND Report Released Date/Time: Sep 08, 2024 08:40 AM Reporting Lab: [facility] [place] [facility] [address] [facility] [address] Performing Lab: [facility] [place] [facility] [address] [facility] [address] [facility] [place] [facility] LIPID PANEL, NON FASTING CHOLESTERO L IN LDL [MASS/VOLU ME] IN SERUM OR PLASMA BY CALCULANENITAO N 99 mg/dL 0 - 129 09/14 Specimen Type: SERUM No comment entered. Ordering Provider: MACO POND Report Released Date/Time: Sep 08, 2024 08:40 AM Reporting Lab: [facility] [place] [facility] [address] [facility] [address] Performing Lab: [facility] [place] [address] [address] [facility] [place] [facility] LIPID PANEL, NON FASTING CHOLESTERO L.TOTAL/CH OLESTEROL IN HDL [MASS RATIO] IN SERUM OR PLASMA 2.0 09/14 Specimen Type: SERUM No comment entered. Ordering Provider: MACO POND Report Released Date/Time: Sep 08, 2024 08:40 AM Reporting Lab: [facility] [place] [facility] [address] [facility] [address] Performing Lab: [facility] [place] [facility] [address] [facility] [address] [facility] [facility] LIPID PANEL, NON FASTING CHOLESTERO L IN HDL [MASS/VOLU ME] IN SERUM OR PLASMA 118 mg/dL 40 - 60 09/14 H Specimen Type: SERUM No comment entered. Ordering Provider: MACO POND Report Released Date/Time: Sep 08, 2024 08:40 AM Reporting Lab: [facility] [place] [facility] [address] [facility] [address] Performing Lab: [facility] [place] [address] [address] [facility] [place] [facility] Vital Signs Combined list of inpatient and outpatient Vital Signs from Department of Defense and Veterans Affairs, ranging from 12 months to all on record, depending upon the facility. Vital Sign Value Date Comments Source WEIGHT 252 04/28/2025 10:42:54 [facility] BMI 38 kg/m2 04/28/2025 10:42:54 [facility] WEIGHT 251 04/21/2025 10:59:53 [facility] BMI 38 kg/m2 04/21/2025 10:59:53 [facility] WEIGHT 251 04/20/2025 15:17:34 [facility] BMI 38 kg/m2 04/20/2025 15:17:34 [facility] WEIGHT 254 03/31/2025 10:38:01 [facility] BMI 39 kg/m2 03/31/2025 10:38:01 [facility] WEIGHT 255 03/24/2025 11:08:36 [facility] BMI 39 kg/m2 03/24/2025 11:08:36 [facility] Encounters Combined list of: 1) Encounters from Department of Veterans Affairs facilities going backup to the last 18 months, not all VA inpatient encounters are included; 2) Encounters from the Department of Defense facilities going backup to 280 months. Location Location Details Encounter Type Encounter Number Reason For Visit Attending Provider ADM Date DC Date Status Disposition Source [facility] [place] [facility] Outpatient Encounter [id number] 03/10 [facility] [place] [facility] [place] [facility] Outpatient Encounter [id number] Diagnos is: ICD-10- CM Z02.89 Encount er for other adminis trative examina RONY [place] 03/10 [facility] Outpatient Encounter [id number] 03/17 [facility] [place] [facility] [place] [facility] OFFICE O/P NEW MOD 45 MIN [id number] Diagnos is: ICD-10- CM G47.00 Insomni a, unspeci fied Blanche POND 04/15 [facility] En[facility] [id number] 04/15 [facility] PSYCH DIAGNOSTIC EVALUATION [id number] 1. Diagnos is: ICD-10- CM F32.89 Other specifi ed depress mihai episode s FEARING,CA CHAEL A 05/05 [facility] En[facility] [id number] 1.06/08 [facility] [id number] 1.06/11 [facility] [id number]/[id number] [facility] En[facility] [id number] 09/09 [facility] [place] 40 MIN [id number] Diagnos is: ICD-10- CM I10 Essenti al (primar y) hyperte nsion Blanche PNOD 09/14 [facility] En[facility] [id number] 1.09/17 [facility] MTMS BY PHARM ADDL 15 MIN [id number] Diagnos is: ICD-10- CM F32.A Depress ion, unspeci fied HUMPHREY HOLLOWAY 10/09 [facility] MTMS BY PHARM ADDL 15 MIN [id number] Diagnos is: ICD-10- CM I10 Essenti al (primar y) hyperte nsion GDULA,HUY A 10/09 [facility] MTMS BY PHARM ADDL 15 MIN [id number] Diagnos is: ICD-10- CM I10 Essenti al (primar y) hyperte nsion GDENDER,HUY A 11/25 [facility] En[facility] [id number] 12/29 [facility] HLTH BHV IVNTJ GRP EA ADDL [id number] Diagnos is: ICD-10- CM Z68.39 Body mass index [BMI] 39.0-39 .9, adult JUAN DANIEL SANCHEZ 01/06 [facility] WEIGHT MGMT CLASS [id number] Diagnos is: ICD-10- CM E66.812 Obesity , class 2 VIVEK SEALS M 01/13 [facility] MTMS BY PHARM ADDL 15 MIN [id number] Diagnos is: ICD-10- CM I10 Essenti al (primar y) hyperte nsion GDULA,HUY A 01/13 [facility] HLTH BHV IVNTJ GRP EA ADDL [id number] Diagnos is: ICD-10- CM E66.812 Obesity , class 2 JUAN DANIEL SANCHEZ A 01/20 [facility] En[facility] [id number] 01/28 [facility] En[facility] [id number] 01/29 [facility] En[facility] [id number] 02/02 [facility] Out[facility] Encounter [id number] 02/02 [facility] [id number] Diagnos is: ICD-10- CM E66.812 Obesity , class 2 VIVEK SEALS 02/03 [facility] MTMS BY PHARM EST 15 MIN [id number] Diagnos is: ICD-10- CM E66.9 Obesity , unspeci fied GDULA,HUY A 02/03 [facility] MTMS BY PHARM EST 15 MIN [id number] Diagnos is: ICD-10- CM E66.9 Obesity , unspeci fied GDULA,HUY A 02/03 [facility] Out[facility] Encounter [id number] 02/03 [facility] NQHP OL DIG ASSMT&MGMT 21+ [id number] Diagnos is: ICD-10- CM E66.9 Obesity , unspeci fied LESIA POST III 02/04 [facility] IVNTJ GRP EA ADDL [id number] Diagnos is: ICD-10- CM E66.812 Obesity , class 2 JUAN DANIEL SANCHEZ A 02/10 [facility] MTMS BY PHARM ADDL 15 MIN [id number] Diagnos is: ICD-10- CM E66.9 Obesity , unspeci fied GDULA,HUY A 02/11 [facility] IVNTJ GRP EA ADDL [id number] Diagnos is: ICD-10- CM E66.812 Obesity , class 2 JUAN DANIEL SANCHEZ 02/17 [facility] COUNS 2-10 [id number] Diagnos is: ICD-10- CM E66.812 Obesity , class 2 VIVEK SEALS M 02/24 [facility] MTMS BY PHARM EST 15 MIN [id number] Diagnos is: ICD-10- CM E66.9 Obesity , unspeci fied GDULA,HUY A 02/25 [facility] Outpatient Encounter [id number] 03/10 [facility] OFFICE O/P EST HI 40 MIN [id number] Diagnos is: ICD-10- CM E66.9 Obesity , unspeci fied Blanche POND 03/15 [facility] IVNTJ GRP EA ADDL [id number] Diagnos is: ICD-10- CM E66.812 Obesity , class 2 JUAN DANIEL SANCHEZ A 03/17 [facility] MTMS BY PHARM ADDL 15 MIN [id number] Diagnos is: ICD-10- CM F32.A Depress ion, unspeci fied HUMPHREY HOLLOWAY D 03/23 [facility] WEIGHT MGMT CLASS [id number] Diagnos is: ICD-10- CM E66.812 Obesity , class 2 SEALSVIVEK A M 03/24 [facility] MTMS BY PHARM EST 15 MIN [id number] Diagnos is: ICD-10- CM E66.9 Obesity , unspeci fied GDULA,HUY A 03/24 [facility] [place] [facility] [facility] IVNTJ GRP EA ADDL [id number] Diagnos is: ICD-10- CM E66.812 Obesity , class 2 JUAN DANIEL SANCHEZ 03/31 [facility] Outpatient Encounter [id number] Blanche POND 03/31 [facility] MTMS BY PHARM EST 15 MIN [id number] Diagnos is: ICD-10- CM E66.9 Obesity , unspeci fied GDULA,HUY A 04/20 [facility] BEHAVE COUNS 2-10 [id number] Diagnos is: ICD-10- CM E66.812 Obesity , class 2 SEALS,ELISS A M 04/21 [facility] [place] [facility] Outpatient Encounter [id number] 04/23 [facility] [place] HLTH [facility]HV IVNTJ GRP EA ADDL [id number] Diagnos is: ICD-10- CM E66.812 Obesity , class 2 JUAN DANIEL SANCHEZ A 04/28 [facility] [place] [facility] Outpatient Encounter [id number] 04/28 [facility] [place] [facility] [place] [facility] Outpatient Encounter [id number] 04/30 [facility] [place] [facility] [place] [facility] Outpatient Encounter [id number] 05/04 [facility] [place] [facility] Social History Combined list of available smoking, tobacco, and other social history from Department of Defense and Veterans Affairs facilities. Social History Type Response Date Comment Sourc e Tobacco smoking status NHIS [place]-TOBACCO NEVER USED CIGARETTES 03/15/2025 [facility] [place] [facility] of [facility] 03/15/2025 [facility] [place] [facility] History of tobacco use MA-TOBACCO NEVER USED 03/17/2024 [facility] [place] [facility] Plan of Care List of future care activities from Department of Veterans Affairs facilities. Additional future care activities may be listed in the Assessment and Plan section. Date/Time Care Activity Care Activity Detail Facili ty 05/06/2025 AMBULATORY - MEDICINE AMBULATORY - MEDICI [facility] Advance Directives List of completed, amended, or rescinded Advance Directives on record at Department of Veterans Affairs facilities. An actual copy of the Directive is not included. Date Advance Directive Provider Source 04/15/2024 ADVANCE DIRECTIVE PATT [facility]
--- OUTSIDE RECORDS SUMMARY | 2025-05-05 06:12 | XMS_ITS ---
Author Name [facility] [place] [facility] [place] Address [address] [place] [id number] Care Team Providers Care Mill Recorder Name Role Phone JENNY POND Primary Care Provider Unavaila ble Selected Encounter This section includes the information on record at [place] for the Encounter. Date/Time Encounter Type Encounter Description Reason Pro vider Source May 05, 2025 10:12 AM Outpatient Encounter COMMUNITY CARE CONSULT IHE Encounter Template Text not used by [place] Plan of Treatment: Future Appointments (+ 6 months) and Future Tests (+/- 45 days) The Plan of Treatment section includes future care activities for the patient from all [place] treatmentfacilities. This section includes future appointments and future orders which are active, pending or scheduled. Future Appointments This section includes appointments that were scheduled to occur 6 months from the date of the Encounter, up to a maximum of 20 appointments. The data comes from all [place] treatment facilities. Appointment Date/Time Appointment Type Appointme nt Facility Name May 06, 2025 02:30 PM [facility] [place] [facility] Jul 06, 2025 11:30 AM [facility] Sep 15, 2025 01:00 PM [facility] Active, Pending, and Scheduled Orders This section includes a listing of several types of active, pending, and scheduled orders, including clinic medications orders, diagnostic test orders, procedure orders and consult orders; where the start date of the order is 45 days before the date of the Encounter or 45 days after the date of theEncounter. The data comes from all [place] treatment facilities. Test Date/Time Test Type Test Details Facility Name May 04, 2025 04:40 PM Consult Order COMMUNITY CARE-ORTHO SURGICAL Cons Health Commissioner's Choice [facility] Social History: Smoking Status (Most current) and Tobacco Use (All prior to encounter date) This section includes the most current, and the historical, smoking and tobacco- related health factors from the [place] facility where the Encounter took place. Current Smoking Status This section includes the most current smoking, or tobacco-related health factor, from the [place] facility where the Encounter took place. Date/Time Current Smoking Status Comment Facil ity Mar 15, 2025 01:00 PM [place]-TOBACCO NEVER U SED OTHER TYPE [facility] Tobacco Use History This section includes a history of the smoking, or tobacco-related health factors, that were collected on or before the date of the Encounter. The data comes from the [place] facility where the Encounter took place. Date/Time Smoking Status/Tobacco Use Comment F acility Mar 15, 2025 01:00 PM [place]-TOBACCO NEVER U SED OTHER TYPE [facility] Mar 17, 2024 09:29 AM VA-TOBACCO NEVER USED [facility] Advance Directives: All historical and current Section Date Range: From patient's date of to the date document was created. This section includes ALL of a patient's completed or amended [place] Advance and Rescinded Directives. The entries below indicate that a directive exists for the patient, but an actual copy is not included with this document. The data comes from all [place] facilities. Date Advance Directives Provider Source Apr 15, 2024 ADVANCE DIRECTIVE PATT BATISTA [facility] Encounter Notes: All associated encounter notes This section contains the clinical notes associated to the Encounter. Date/Time Encounter Note(s) Provider Source May 05, 2025 10:12 AM NONVA NOTE: LOCAL TITLE: COMMUNITY CARE-REQUEST FOR SERVICE NOTE STANDARD TITLE: NONVA NOTE DATE OF NOTE: MAY 05, 2025@10:12 ENTRY DATE: MAY 05, 2025@10:13:02 AUTHOR: TERRY LEVIN EXP COSIGNER: URGENCY: STATUS: COMPLETED Request for Services (RFS) [facility] Consult: COMMUNITY CARE-Ortho Consult No: [id number] Date scanned: May A Request for Service (RFS) form [id number] has been received which includes the following: Care Requested:confirming surgery date, CPT code 30622 ICD-10 Dx code: m16.12 UNILATERAL PRIMARY OSTEOARTHRITIS Date [facility] received request: Apr Date service required: May Requesting Community Provider Information: Name of Ordering Provider: Anam Byrne Office:[facility] Address, [facility]: [address] [place] [address] Alerting [facility] RN and AMSA the RFAS for this ortho surgical consult indicates Left Hip the current authorization from the Consult entered today indicates Right Hip. Please clarify with [facility] and get consult Corrected. Also no records were received with this RFAS for the imaging done on 04/14 or records from the 2023 Ortho consult. BACK date was also being requested Please reach out to [facility] and update consult and EMR accordingly. /emiliano/ TERRY LEVIN, RN, MSN [employer] QUALITY INSPECTOR [employer]ANDEM MILL OPERATOR Signed: 05/05/2025 10:19 Receipt Acknowledged By: * AWAITING SIGNATURE * VASHTI WHITMAN * AWAITING SIGNATURE * ANAM HARDEN JR, DANIELLE L [place] [facility]
--- OUTSIDE RECORDS SUMMARY | 2025-05-05 14:21 | XMS_ITS ---
Author Name [facility] Organization Unknown Care Team Organization Name Specialty Phone Email Start Date End Da te [facility] PAULO DODGE Primary Care 02/08/2023 04/20/2024 [facility] Ondina Primary Care 07/10/2022 04/20/2024
--- OUTSIDE RECORDS SUMMARY | 2025-05-05 14:22 | XMS_ITS | Clinical Summary ---
Author Organization [facility] Address [address] [place] [address] Care Team Providers Care Supervisor Chassis Assembly Name Role Phone Dario Nj Primary Care Provider [phone] Allergies No known active allergies Medications atenoloL (TENORMIN) 25 mg tablet Take 25 mg by mouth once a day. 01/24/20 22 Active buPROPion SR (WELLBUTRIN SR) 200 mg tablet Take 200 mg by mouth 2 times a day. 02/20/20 22 Active omeprazole (PriLOSEC) 20 mg capsule Take 20 mg by mouth once a day. 02/13/20 22 Active traZODone (DESYREL) 100 mg tablet Take 200 mg by mouth nightly as needed. 02/20/20 22 Active escitalopram (LEXAPRO) 20 mg tablet Take 20 mg by mouth once a day. Active multivitamin capsule Take 1 capsule by mouth once a day. Active vitamin B complex capsule Take 1 capsule by mouth once a day. Active LORazepam (ATIVAN) 0.5 mg tablet Take 1 tablet (0.5 mg total) by mouth nightly as needed for anxiety. 08/14/20 22 Active Ventolin HFA 90 mcg/actuation inhaler SMARTSI Puff(s) By Mouth Every 4 Hours PRN 10/28/19 24 Active mupirocin (BACTROBAN) 2% ointmentIndicat ions:Preoperati ve examination Apply topically to the affected area 2 times a day. Apply to bilateral nasal vestibule twice a day starting 5 days prior to surgery 22 g 05/05/20 25 Active lisinopriL (PRINIVIL,ZESTR IL) 10 mg tablet Take 30 mg by mouth once a day. 09/14/19 25 Active amoxicillin (AMOXIL) 500 mg capsule Take 500 mg by mouth as needed. Pre dental work 03/26/20 25 Active amLODIPine (NORVASC) 5 mg tablet Take 5 mg by mouth once a day. 10/09/19 25 Active tirzepatide 10 mg/0.2 mL syringe Inject 10 mg under the skin once. 04/20/20 25 Active milk thist seed/artichoke leaf (ARTICHOKE PREMIUM EXTRACT ORAL) Take 1 capsule by mouth daily. 10/09/19 25 Active diclofenac sodium 1 % kit Apply 1 Application topically to the affected area as needed. 03/15/20 25 Active ibuprofen-diphe nhydramine cit (Advil PM) 200-38 mg tablet Take 2 tablets by mouth nightly as needed. Active lisinopriL (PRINIVIL,ZESTR IL) 5 mg tablet Take 1 tablet (5 mg total) by mouth once a day. May resume in 1 week if BP>125/80 08/14/20 025 Discontinued Active Problems Problem Noted Date Diagnosed Date Asthma 06/30/2024 Gastroesophageal reflux disease without esophagi tis 06/30/2024 Depression 06/30/2024 Class 2 severe obesity with serious comorbidity and body mass index (BMI) of 39.0 to 39.9 in adult 06/30/2024 Primary hypertension 06/30/2024 DANIELITO (obstructive sleep apnea) 06/30/2024 Insomnia 06/30/2024 Alcohol use 06/30/2024 Primary osteoarthritis of both hips 06/29/2024 Impaired mobility 07/31/2022 Resolved Problems Problem Noted Date Diagnosed Date Resolved Date Primary osteoarthritis of left hip 08/14/2022 06/29/2024 Encounters Date Type Department Care Team Description 04/14/2025 9:09 AM EDT - 04/14/2025 11:59 PM EDT Hospital Encounter [facility] Xray [address] [place] [address] Emanuel Byrne MD Primary osteoarthritis of right hip Discharge Disposition: Home or Self Care () 04/14/2025 9:00 AM EDT Follow-Up [facility] [address] [place] [phone] Emanuel Byrne MD Primary osteoarthritis of right hip (Primary Dx) from Last 3 Months Family History Medical History Relation Name Comments Alcohol abuse Father Alzheimer's disease Paternal Grandfather Alzheimer's disease Paternal Grandmother Relation Name Status Comments Father Mother Alive Paternal Grandfather Paternal Grandmother Social History Tobacco Use Types Packs/Day Years Used Date Smoking Tobacco: Never Smokeless Tobacco: Never Tobacco Cessation:Counseling Given: Not Answered Alcohol Use Standard Drinks/Week Comments Yes 21 (1 standard drink = 0.6 oz pu re alcohol) vodka Sex and Gender Information Value Date Recorded Sex Assigned at Male 08/08/2022 11:13 AM EST Legal Sex Male 9:20 AM EDT Gender Identity Male 08/08/2022 11:13 AM EST Sexual Orientation Straight 08/08/2022 11 :13 AM EST Last Filed Vital Signs Vital Sign Reading Time Taken Comments Blood Pressure 125/78 05/05/2025 9:33 AM EDT Pulse 79 05/05/2025 9:33 AM EDT Temperature 36.8 C (98.2 F) 05/05/2025 9:33 AM EDT Respiratory Rate 18 05/05/2025 9:33 AM EDT Oxygen Saturation 95% 05/05/2025 9:33 AM EDT Inhaled Oxygen Concentration - - Weight 121.6 kg (268 lb) 05/05/2025 9:33 AM EDT Height 173 cm (5' 8.11 ) 05/05/2025 9:33 AM EDT Body Mass Index 40.62 05/05/2025 9:33 AM EDT Plan of Treatment Upcoming Encounters Date Type Department Care Team (Latest Contact Info) Description 05/11/2025 7:15 AM EDT Hospital Encounter [facility] Operating Room [address] [place] [phone] Emanuel Byrne MD [address] [place] [phone] 05/11/2025 7:15 AM EDT Anesthesia Event [facility] Operating Room [address] [place] [phone] Tejal Finch MD [address] [place] [phone] Antoniettaemiliano Sandy Morelia, DO [address] [place] [phone] 05/11/2025 7:15 AM EDT - 05/11/2025 10:15 AM EDT Surgery [facility] Operating Room [address] [place] [phone] Emanuel Byrne MD [address] [place] [address] [phone] Right Total Hip Replacement [68762 (CPT )] 06/08/2025 1:00 PM EDT Follow-Up [facility] [address] [place] [phone] Bony, NICHOLAS Castellanos [address] [place] [phone] 07/07/2025 2:00 PM EST Follow-Up [facility] [address] [place] [phone] Emanuel Byrne MD [address] [place] [phone] Scheduled Procedures Name Priority Associated Diagnoses Date/Ti me TOTAL HIP ARTHROPLASTY Primary osteoarthritis of right hip 05/11/2025 7:15 AM EDT Health Maintenance Due Date Last Done Comments Cologuard 1961 Colon Cancer Screening 1961 Colonoscopy 1961 FOBT / Fit Test 1961 HIV Screening 1961 Hepatitis C Screening 1961 Sigmoidoscopy 1961 Pneumococcal Vaccine: 50+ Years (1 of 2 - PCV) 01/04/1980 RSV Vaccine (60+ years old and patients) (1 - Risk 60-74 years 1-dose series) 2021 Alcohol/Substance Use Screening 09/02/2024 Depression Screening and Follow-Up 09/02/2024 Social Drivers of Health Annual Screening 09/02/2024 COVID-19 Vaccine (3 - season) 2025 11/11/2020, 10/14/2020 Influenza Vaccine (#1) 2025 , 06/11/2024, 06/18/2023, Additional history exists Basic Metabolic Panel 05/05/2026 05/05/2025 , 07/09/2024, 06/30/2024, Additional history exists Diabetes Screening 05/05/2028 05/05/2025, 1 09/08/2023, 06/30/2024, Additional history exists DTaP,Tdap,and Td Vaccines (4 - Td or Tdap) 10/28/2030 10/28/2020, 10/28/2020, 02/20/2012, Additional history exists Zoster Vaccines Completed 05/05/2020, 02/23/2020 Hepatitis B Vaccines Aged Out No long er eligible based on patient's age to complete this topic Goals Goal Patient Goal Type Associated Problems Recent Progress Patient-Stated? Author Autogenerat ed Goal Care Plan Autogenerated Problem No Marva Avila, RN Medical Devices Implanted Type Area Energy Director Device Identifier Shelf Expiration Date Model / Serial / Lot Shell Acetabular Size F 3 Hole Sterile 54mm G7 - [id number] Implanted:Qty: 1 on 08/14/2022 by Emanuel Byrne MD at [facility] Implant Left: Hip Slime 04/24/2032 [id number] / / [id number] Bearing Highly Crosslinked Polyethylene Vitamin E Dual Mobility [id number] Size F - [id number] Implanted:Qty: 1 on 08/14/2022 by Emanuel Byrne MD at [facility] Implant Left: Hip Slime 03/13/2027 [id number] / / [id number] Liner Acetabular Dual Mobility [place] Chrome Sterile Latex Free Size F 44mm G7 - [id number] Implanted:Qty: 1 on 08/14/2022 by Emanuel Byrne MD at [facility] Implant Left: Hip Slime 05/02/2032 [id number] / / [id number] [id number] Femoral Standard Full Proximal Profile [id number] Type 1 Echo - [id number] Implanted:Qty: 1 on 08/14/2022 by Emanuel Byrne MD at [facility] Implant Left: Hip Slime 06/01/2032 [id number] / / [id number] Screw Acetabular Self-Tapping [id number] Trilogy - [id number] Implanted:Qty: 1 on 08/14/2022 by Emanuel Byrne MD at [facility] Screw Left: Hip Slime 12/24/[id number]- 30 / / [id number] Screw Acetabular Self-Tapping [id number] Trilogy - [id number] Implanted:Qty: 1 on 08/14/2022 by Emanuel Byrne MD at [facility] Screw Left: Hip Slime 04/06/[id number]- 20 / / [id number] Biolox Delta Ceramic Femoral Head , 28mm,+3mmneck Implanted:Qty: 1 on 08/14/2022 by Emanuel Byrne MD at [facility] Left: Hip [employer] [id number] / / [id number] Procedures * Due to [place] state law, this organization might not be sharing negative HIV tests. Procedure Name Priority Date/Time Associated Diagnosis Comments PREALBUMIN Routine 05/05/2025 9:30 AM EDT Preop testing Primary osteoarthritis of right hip VELEZ TOP, URN Routine 05/05/2025 9:30 AM EDT Preop testing Primary osteoarthritis of right hip UA/CULTURE REFLEX Routine 05/05/2025 9:3 0 AM EDT Preop testing Primary osteoarthritis of right hip URINALYSIS W/REFLEX TO MICROSCOPIC & CULTURE Routine 05/05/2025 9:30 AM EDT Preop testing Primary osteoarthritis of right hip PROTIME-INR Routine 05/05/2025 9:30 AM EDT Preop testing Primary osteoarthritis of right hip PTT Routine 05/05/2025 9:30 AM EDT Preop testing Primary osteoarthritis of right hip COMPREHENSIVE METABOLIC PANEL Routine 05/05/2025 9:30 AM EDT Preop testing Primary osteoarthritis of right hip CBC AUTO DIFFERENTIAL Routine 05/05/2025 9:30 AM EDT Preop testing Primary osteoarthritis of right hip XR HIP RIGHT 2 VIEWS AND 1 VIEW PELVIS Routine 04/14/2025 9:32 AM EDT Primary osteoarthritis of right hip from Last 3 Months Results * Due to [place] state law, this organization might not be sharing negative HIV tests. * Velez Top, Urine (05/05/2025 9:30 AM EDT) Extra Tube Hold for add-ons. 05/05/2025 2:05 PM EDT [facility] Comment:Auto resulted. Urine Urine specimen collection, clean catch / Unknown Non-Blood Collection / Unknown 05/05/2025 9:30 AM EDT 05/05/2025 1:22 PM EDT us Ann Lazar CLINICAL INFORMATICS DIRECTOR LAB URINE ORDERABLES Final Result [facility] [address] [place] [address], * (ABNORMAL) Urinalysis W/Reflex to Microscopic & Culture (05/05/2025 9:30 AM EDT) Color, Urine Light Yellow Colorless, Light Yellow, Yellow, Dark Yellow 05/05/2025 1:37 PM EDT [facility] Clarity, Urine Clear Clear 05/05/2025 1:37 PM EDT [facility] Specific [place], Urine 1.013 <1.030 05/05/2025 1:37 PM EDT [facility] pH, Urine 6.0 4.6 - 8.0 05/05/2025 1:37 PM EDT [facility] Protein, Urine Negative Negative 05/05/2025 1:37 PM EDT [facility] Glucose, Urine Normal Normal 05/05/2025 1:37 PM EDT [facility] Ketones, Urine Negative Negative 05/05/2025 1:37 PM EDT [facility] Bilirubin, Urine Negative Negative 05/05/2025 1:37 PM EDT [facility] Blood, Urine Negative Negative 05/05/2025 1:37 PM EDT [facility] Nitrite, Urine Negative Negative 05/05/2025 1:37 PM EDT [facility] Urobilinogen, Urine Normal Normal 05/05/2025 1:37 PM EDT [facility] Leukocyte Esterase, Urine Trace(A) Negative 05/05/2025 1:37 PM EDT [facility] WBC, Urine 2 0 - 2 /HPF 05/05/2025 1:37 PM EDT [facility] RBC, Urine 1 0 - 2 /HPF 05/05/2025 1:37 PM EDT [facility] Hyaline Casts, Urine 0 0 - 2 /LPF 05/05/2025 1:37 PM EDT [facility] Squamous Epithelial Cells, Urine <1 /HPF 05/05/2025 1:37 PM EDT [facility] Bacteria, Urine None Seen None /HPF /HPF 05/05/2025 1:37 PM EDT [facility] Urine Urine specimen collection, clean catch / Unknown Non-Blood Collection / Unknown 05/05/2025 9:30 AM EDT 05/05/2025 1:22 PM EDT us Ann Lazar CLINICAL INFORMATICS DIRECTOR LAB URINE ORDERABLES Final Result [facility] [address] [place] [address], * (ABNORMAL) CBC Auto Differential (05/05/2025 9:30 AM EDT) WBC 8.1 3.8 - 10.8 10*3/uL 05/05/2025 11:32 AM EDT [facility] RBC 3.61(L) 4.20 - 5.80 10*6/uL 05/05/2025 11:32 AM EDT [facility] Hemoglobin 12.3(L) 13.2 - 17.1 g/dL 05/05/2025 11:32 AM EDT [facility] Hematocrit 34.7(L) 38.5 - 50.0 % 05/05/2025 11:32 AM EDT [facility] MCV 96.1 80.0 - 100.0 fL 05/05/2025 11:32 AM EDT [facility] MCH 34.1(H) 27.0 - 33.0 pg 05/05/2025 11:32 AM EDT [facility] MCHC 35.4 32.0 - 36.0 g/dL 05/05/2025 11:32 AM EDT [facility] RDW 11.7 11.0 - 15.0 % 05/05/2025 11:32 AM EDT [facility] Platelets 286 140 - 400 10*3/uL 05/05/2025 11:32 AM EDT [facility] MPV 9.3 7.5 - 12.5 fL 05/05/2025 11:32 AM EDT [facility] Neutrophil % 62.1 % 05/05/2025 11:32 AM EDT [facility] Immature Grans % 0.5 0.0 - 0.9 % 05/05/2025 11:32 AM EDT [facility] Lymphocyte % 23.6 % 05/05/2025 11:32 AM EDT [facility] Monocyte % 9.5 % 05/05/2025 11:32 AM EDT [facility] Eosinophil % 3.4 % 05/05/2025 11:32 AM EDT [facility] Basophil % 0.9 % 05/05/2025 11:32 AM EDT [facility] Neutrophil # 5.04 1.50 - 7.80 10*3/uL 05/05/2025 11:32 AM EDT [facility] Immature Grans # 0.04(H) <=0.03 10*3/uL 05/05/2025 11:32 AM EDT [facility] Lymphocyte # 1.90 0.85 - 3.90 10*3/uL 05/05/2025 11:32 AM EDT [facility] Monocyte # 0.80 0.20 - 0.95 10*3/uL 05/05/2025 11:32 AM EDT [facility] Eosinophil # 0.30 0.02 - 0.50 10*3/uL 05/05/2025 11:32 AM EDT [facility] Basophil # 0.10 0.00 - 0.20 10*3/uL 05/05/2025 11:32 AM EDT [facility] nRBC % 0.0 /100 WBCs 05/05/2025 11:32 AM EDT [facility] nRBC # <0.01 <0.01 10*3/uL 05/05/2025 11:32 AM EDT [facility] Blood Structure of peripheral vein / Unknown Venipuncture / Unknown 05/05/2025 9:30 AM EDT 05/05/2025 11:08 AM EDT Ann Lazar NP LAB BLOOD ORDERABLES Final Result Performing Organization Address [facility]/ZIP Co de Phone Number [facility] [address] [place] [address], * PTT (05/05/2025 9:30 AM EDT) aPTT 27.6 23.0 - 32.0 Seconds 05/05/2025 11:45 AM EDT [facility] Comment: Current PTT reagent is not sensitive to detect all Lupus Anticoagulant (LA) Inhibitor Cases. If a LA is suspected, please order a Lupus Anticoagulation w/ Reflex Test which is performed at [facility] in [place], [place]. Blood Structure of peripheral vein / Unknown Venipuncture / Unknown 05/05/2025 9:30 AM EDT 05/05/2025 11:08 AM EDT Ann Lazar NP LAB BLOOD ORDERABLES Final Result Performing Organization Address [facility] Co de Phone Number [facility] [address] [place] [address], * Protime-INR (05/05/2025 9:30 AM EDT) PT 10.8 9.6 - 12.4 Seconds 05/05/2025 11:45 AM EDT [facility] INR 1.0 0.9 - 1.1 05/05/2025 11:45 AM EDT [facility] Comment:The optimal therapeu tic INR range for patients treated with Vitamin K antagonists (VKAS, e.g., Warfarin) is 2.0 to 3.5. Discuss the desired range with your doctor/care team. Blood Structure of peripheral vein / Unknown Venipuncture / Unknown 05/05/2025 9:30 AM EDT 05/05/2025 11:08 AM EDT Ann Lazar CLINICAL INFORMATICS DIRECTOR LAB BLOOD ORDERABLES Final Result Performing Organization Address City/[facility]/ZIP Co de Phone Number [facility] [address] [place] [address], * Prealbumin (05/05/2025 9:30 AM EDT) Prealbumin 26 18 - 40 mg/dL 05/05/2025 11:44 AM EDT [facility] Blood Structure of peripheral vein / Unknown Venipuncture / Unknown 05/05/2025 9:30 AM EDT 05/05/2025 11:08 AM EDT Ann Lazar NP LAB BLOOD ORDERABLES Final Result Performing Organization Address [facility] Co de Phone Number [facility] [address] [place] [address], * (ABNORMAL) Comprehensive metabolic panel (05/05/2025 9:30 AM EDT) Pathologist [facility] NA 126(L) 135 - 145 mmol/L 05/05/2025 11:44 AM EDT [facility] K 4.3 3.5 - 5.3 mmol/L 05/05/2025 11:44 AM EDT [facility] Cl 88(L) 98 - 107 mmol/L 05/05/2025 11:44 AM EDT [facility] CO2 25 22 - 32 mmol/L 05/05/2025 11:44 AM EDT [facility] Anion Gap 13 5 - 15 05/05/2025 11:44 AM EDT [facility] Glucose 90 65 - 99 mg/dL 05/05/2025 11:44 AM EDT [facility] Creatinine 1.30 0.60 - 1.30 mg/dL 05/05/2025 11:44 AM EDT [facility] Calcium 9.6 8.6 - 10.5 mg/dL 05/05/2025 11:44 AM ED [facility] Total Protein 7.6 6.0 - 8.0 g/dL 05/05/2025 11:44 AM EDT [facility] Albumin 4.1 3.5 - 5.2 g/dL 05/05/2025 11:44 AM EDT [facility] Bilirubin, Total 0.5 0.2 - 1.2 mg/dL 05/05/2025 11:44 AM EDT [facility] Alkaline Phosphatase 68 35 - 129 U/L 05/05/2025 11:44 AM EDT [facility] AST 26 10 - 40 U/L 05/05/2025 11:44 AM EDT [facility] ALT 19 10 - 40 U/L 05/05/2025 11:44 AM [facility] BUN 14 7 - 23 mg/dL 05/05/2025 11:44 AM ED [facility] eGFR 61 >=60 mL/min/1. 73m2 05/05/2025 11:44 AM [facility] Comment:The estimated glomer ular filtration rate (eGFR) is calculated using a new formula developed by the NKF-ASN task force to eliminate race-based correction factors. The new formula uses serum/plasma creatinine, age, and gender to determine eGFR. A value below 60mls/min might indicate kidney disease and will be flagged. For additional information, see Kristian et al, Am J Kidney Dis. 2021;79(2):268- 288, A Unifying Approach for GFR estimation: Recommendations of the NKF-ASN Task Force on Reassessing the Inclusion of Race in Diagnosing Kidney Disease . Globulin, Total 3.5 2.1 - 4.2 g/dL 05/05/2025 11:44 AM [facility] A/G Ratio 1.2(L) 1.5 - 3.0 05/05/2025 11:44 AM EDT [facility] Blood Structure of peripheral vein / Unknown Venipuncture / Unknown 05/05/2025 9:30 AM EDT 05/05/2025 11:08 AM EDT us Ann Lazar NP LAB BLOOD ORDERABLES Final Result [facility] Instant [facility] [address] [place] [address], [place] * XR Hip Right 2 Views And 1 View Pelvis (04/14/2025 9:32 AM EDT) Anatomical Region Laterality Modality Body, Pelvis, Hip Right Computed Radio graphy 04/14/2025 9:47 AM EDT Impressions 04/14/2025 9:48 AM EDT Right hip AP and crosstable lateral view pelvis AP view. Upright. Mild osteopenia. Progressive severe degenerative arthropathy of the right hip mild degenerative changes pubic symphysis and partially visualized right SI joint. Partially visualized left SI joint is normal. The left total hip replacement prosthesis is within normal limits without any periprosthetic complications. No acute fractures or dislocations particularly within the right hip If this radiology report contains a blank impression section, it is an incomplete radiology report. Please contact the interpreting radiologist or applicable radiology division as soon as possible to obtain the completed interpretation. Workstation ID: [id number] Narrative 04/14/2025 9:48 AM EDT COMPARISON: 08/14/2023 FINDINGS AND Resulting Agency Comment [id number] Procedure Note Lisha Joshi MD - 04/14/2025 COMPARISON: 08/14/2023 FINDINGS AND IMPRESSION: Right hip AP and crosstable lateral view pelvis AP view. Upright. Mild osteopenia. Progressive severe degenerative arthropathy of the righthip mild degenerative changes pubic symphysis and partially visualizedright SI joint. Partially visualized left SI joint is normal. The left total hipreplacement prosthesis is within normal limits without any periprostheticcomplications. No acute fractures or dislocations particularly within theright hip If this radiology report contains a blank impression section, it is anincomplete radiology report. Please contact the interpreting radiologistor applicable radiology division as soon as possible to obtain thecompleted interpretation. Workstation ID: [id number] us Emanuel Byrne MD IMG XR PROCEDURES Final Res ult from Last 3 Months Additional Health Concerns Active Problems Noted Date Diagnosed Date Autogenerated Problem 04/06/2025 Insurance [employer] HS[employer] CARE Advance Directives Documents on File Type Date Recorded Patient Quality Control Microbiologist Expl anation Health Care Proxy 08/14/2022 5:55 AM * Full Code (Latest Code Status on File) Date Activated Date Inactivated Comments 08/14/2022 10:21 AM 08/14/2022 9:57 PM * Full Code Date Activated Date Inactivated Comments 08/14/2022 5:33 AM 08/14/2022 10:21 AM Healthcare Agents on File Name Relationship Healthcare Agent Relationship Communication Rosa Finch Spouse Health Care Agent Care Teams Supervisor Chassis Assembly Relationship Specialty Start Date End Date Dario Nj PCP - General Internal Medicine 04/04/22
--- OUTSIDE RECORDS SUMMARY | 2025-05-05 14:23 | XMS_ITS | Clinical Summary ---
Author Organization [facility] [address] [place] [address] [place] [phone] Phone Care Team Providers Care Test Director Name Role Phone Dario Nj MD Primary Care Provider [phone] Allergies No known active allergies Medications albuterol HFA (Ventolin HFA) 90 mcg/actuation inhaler Inhale 2 puffs by mouth every 4 (four) hours if needed for wheezing. 10/28/2023 Active escitalopram (LEXAPRO) 10 mg tablet Take 1 tablet (10 mg total) by mouth 1 (one) time each day. 12/20/2021 Active buPROPion SR (WELLBUTRIN SR) 200 mg 12 hr tablet Take 1 tablet (200 mg total) by mouth 2 (two) times a day. 08/29/2020 Active traZODone (DESYREL) 100 mg tablet Take 1-2 Tabs by mouth at bedtime. 08/04/2019 Active LORazepam (ATIVAN) 0.5 mg tablet Take 1 tablet (0.5 mg total) by mouth 1 (one) time each day if needed (sleep). 08/04/2019 Active lisinopriL (PRINIVIL,ZESTR IL) 30 mg tablet Take 1 tablet (30 mg total) by mouth 1 (one) time each day. 30 each 07/14/2024 Active atenoloL (TENORMIN) 25 mg tablet TAKE ONE TABLET BY MOUTH EVERY DAY 90 tablet 1 08/03/2024 Active omeprazole (PriLOSEC) [address] capsule TAKE ONE CAPSULE BY MOUTH EVERY DAY 90 capsule 1 08/03/2024 Active lisinopriL (PRINIVIL,ZESTR IL) 10 mg tablet TAKE ONE TABLET BY MOUTH EVERY DAY 90 tablet 1 12/11/2024 Active Active Problems Problem Noted Date Diagnosed Date Severe obesity (BMI 35.0-35. 9 with comorbidity) ([facility] V24, [facility] V28) 06/18/2024 History of hip replacement 10/08/2022 Degenerative joint disease (DJD) of hip 06/05/20 DDD (degenerative disc disease), lumbar 06/05/20 21 Facet arthropathy 06/05/2021 Alcohol abuse 02/26/2020 Anemia in other chronic diseases classified else where 02/21/2018 Panic disorder without agoraphobia 04/04/2015 Wheezing 03/25/2014 Allergic rhinitis 12/31/2012 Pain in joint, multiple sites 01/05/2009 Overview (06/18/2024): Onset summer 2007; no inflammatory markers. Probable fibromyalgia Depressive disorder 12/12/2006 Overview (06/18/2024): Follows by Dr. Meza Essential hypertension, benign 01/02/2006 Pure hypercholesterolemia 01/02/2006 Immunizations Name Administration Dates Next Due H1N1 Inj Preservative Free 08/13/2009 Influenza Quadravalent, MDCK , 0.5ml, preservative free (Flucelvax) 6mo and older 06/05/2021 Influenza Quadravalent, MDCK , 0.5ml, with preservative (Flucelvax) 6mo and older 06/18/2023,06/11/2022,04/18/2020 Influenza trivalent, 0.5mL, preservative free (Fluarix; FluLaval; Fluzone) ages 6mo and older (Afluria) 3 years and older 05/27/2019,05/16/2016,05/15/2013,2011,08/15/2011,05/24/2010,08/13/2009,1 10/04/2007,06/22/2007,08/04/2006 Moderna SARS-CoV-2 COVID-19, mRNA, LNP-S, preservative free 11/11/2020 Tdap Tetanus diptheria acell ular pertussis (Boostrix; Adacel) 7yo and older 10/28/2020,02/20/2012 Zoster recombinant (Shingrix ) 19yo and older 05/05/2020,02/23/2020 Surgical History Surgery Date Site/Laterality Comments COLONOSCOPY 07/29/2012 PROCEDURE: ND COLONOSCOPY FLX DX W/COLLJ SPEC WHEN PFRMD; COMMENT: normal Medical History Medical History Date Comments Pure hypercholesterolemia 01/02/2006 DX:Pur e hypercholesterolemia Obesity, unspecified 01/02/2006 DX:Obesity, unspecified; COMMENT: BMI 36.9 11/02 Depressive disorder, not els ewhere classified 12/12/2006 DX:Depressive disorder, not elsewhere classified Pain in joint, multiple sites 01/05/2009 DX :Pain in joint, multiple sites; COMMENT: Onset summer 2007; no inflammatory markers. Probable fibromyalgia Esophageal reflux DX:Esophageal reflux Essential hypertension, benign 01/02/2006 D X:Essential hypertension, benign Allergic rhinitis DX:Allergic rh initis Wheezing DX:Wheezing ETOH abuse DX:ETOH abuse; C OMMENT: 6beers per day, with abnormal LFT, macrocytosis Family History Medical History Relation Name Comments Arthritis Maternal Grandfather Diabetes Maternal Grandfather Hypertension Maternal Grandfather Arthritis Maternal Grandmother Cataracts Maternal Grandmother Diabetes Maternal Grandmother Arthritis Mother Glaucoma Other cousin Blindness Neg Hx Macular degeneration Neg Hx Strabismus Neg Hx Relation Name Status Comments Father Maternal Grandfather Maternal Grandmother Mother Alive Other cousin Alive Social History Tobacco Use Types Packs/Day Years Used Date Smoking Tobacco: Never Smokeless Tobacco: Never Tobacco Cessation:Counseling Given: Not Answered Alcohol Use Standard Drinks/Week Comments Yes 0 (1 standard drink = 0.6 oz pur e alcohol) Sex and Gender Information Value Date Recorded Sex Assigned at Not on file Legal Sex Male 8:08 AM EST Gender Identity Not on file Sexual Orientation Not on file Obstetrics History Last Filed Vital Signs Vital Sign Reading Time Taken Comments Blood Pressure 168/94 07/14/2024 10:58 AM EST Pulse 72 07/14/2024 10:58 AM EST Temperature 36.2 C (97.1 F) 07/14/2024 10:58 AM EST Respiratory Rate 16 07/14/2024 10:58 AM EST Oxygen Saturation - - Inhaled Oxygen Concentration - - Weight 114 kg (251 lb) 07/14/2024 10:58 AM EST Height 172.7 cm (5' 8 ) 07/14/2024 10:58 AM EST Body Mass Index 38.16 07/14/2024 10:58 AM EST Plan of Treatment Health Maintenance Due Date Last Done Comments Hepatitis A Vaccines (1 of 2 - Risk 2-dose series) 01/04/1980 Pneumococcal Vaccine: 50+ Years (1 of 2 - PCV) 01/04/1980 RSV Immunization Adult Patients (1 - Risk 60-74 years 1-dose series) 2021 Colorectal Cancer Screening: Colonoscopy 08/11/2022 HIV Screening 08/11/2022 Social Influencers of Health Screening 08/11/2022 Depression Screening 09/02/2024 07/15/2023 COVID-19 Vaccine ( season) 2025 11/11/2020, 10/14/2020 Influenza Vaccine (#1) 2025 , 06/18/2023, 06/11/2022, Additional history exists Hypertension/CHF/CAD Annual BMP Blood Test 07/09/2025 07/09/2024, 06/30/2024, 04/14/2024, Additional history exists Cholesterol Screening (Lipid Panel) 07/02/2028 07/02/2023 DTaP,Tdap,and Td Vaccines (4 - Td or Tdap) 10/28/2030 10/28/2020, 10/28/2020, 02/20/2012, Additional history exists Hepatitis C Screening Completed 10/02/2019 Zoster Vaccines Completed 05/05/2020, 02/23/2020 HIB Vaccines Aged Out No longer eligi ble based on patient's age to complete this topic HPV Vaccines Aged Out No longer eligi ble based on patient's age to complete this topic Hepatitis B Vaccines Aged Out No long er eligible based on patient's age to complete this topic IPV Vaccines Aged Out No longer eligi ble based on patient's age to complete this topic MMR Vaccines Aged Out No longer eligi ble based on patient's age to complete this topic Meningococcal ACWY Vaccine Aged Out N o longer eligible based on patient's age to complete this topic Meningococcal B Vaccine Aged Out No l onger eligible based on patient's age to complete this topic RSV Immunization Patients Under 20 months Aged Out No longer eligible based on patient's age to complete this topic Varicella Vaccines Aged Out No longer eligible based on patient's age to complete this topic Procedures Procedure Name Priority Date/Time Associated Diagnosis Comments COMPREHENSIVE METABOLIC PANEL Routine 07/09/2024 1:09 PM EST Alcohol abuse, continuous Anemia in other chronic diseases classified elsewhere Pure hyperglyceridemia DEPRESSION SCREENING Routine 07/15/2023 LIPID PANEL Routine 07/02/2023 HEPATITIS C SCREENING Routine 10/02/2019 from Last 3 Months or Most Recently Relevant to Health Maintenance Results * (ABNORMAL) Comprehensive metabolic panel (07/09/2024 1:09 PM EST) Sodium 134 133 - 145 mmol/L LAB CHEMISTRY METHOD 07/09/2024 5:12 PM [facility] Potassium 4.4 3.5 - 5.5 mmol/L LAB CHEMISTRY METHOD 07/09/2024 5:12 PM [facility] Chloride 98 96 - 110 mmol/L LAB CHEMISTRY METHOD 07/09/2024 5:12 PM [facility] CO2 30 21 - 32 mmol/L LAB CHEMISTRY METHOD 07/09/2024 5:12 PM [facility] Anion Gap 6 3 - 11 LAB CHEMISTRY METHOD 07/09/2024 5:12 PM [facility] Glucose 105(H) 70 - 100 mg/dL LAB CHEMISTRY METHOD 07/09/2024 5:12 PM [facility] BUN 14 5 - 25 mg/dL LAB CHEMISTRY METHOD 07/09/2024 5:12 PM [facility] Creatinine 1.25 0.70 - 1.30 mg/dL LAB CHEMISTRY METHOD 07/09/2024 5:12 PM [facility] eGFR 65 >=60 mL/min/1. 73m2 LAB CHEMISTRY METHOD 07/09/2024 5:12 PM [facility] Comment:Calculation based on the Chronic Kidney Disease Epidemiology Collaboration (CKD-EPI) equation refit without adjustment for race. BUN/Creatinine Ratio 11.2 LAB CHEMISTRY METHOD 07/09/2024 5:12 PM [facility] Calcium 9.7 8.5 - 10.5 mg/dL LAB CHEMISTRY METHOD 07/09/2024 5:12 PM [facility] AST (SGOT) 26 10 - 42 unit/L LAB CHEMISTRY METHOD 07/09/2024 5:12 PM [facility] ALT (SGPT) 25 10 - 60 unit/L LAB CHEMISTRY METHOD 07/09/2024 5:12 PM [facility] Alkaline Phosphatase 92 42 - 121 unit/L LAB CHEMISTRY METHOD 07/09/2024 5:12 PM [facility] Total Protein 8.3(H) 6.0 - 8.0 g/dL LAB CHEMISTRY METHOD 07/09/2024 5:12 PM [facility] Albumin 4.0 3.2 - 5.0 g/dL LAB CHEMISTRY METHOD 07/09/2024 5:12 PM [facility] Total Bilirubin 0.7 0.0 - 1.4 mg/dL LAB CHEMISTRY METHOD 07/09/2024 5:12 PM [facility] Blood Venous blood specimen / Unknown Venipuncture / Unknown 07/09/2024 1:09 PM EST 07/09/2024 1:09 PM EST Dario Nj MD LAB BLOOD ORDERABLES Final Resul t [facility] [address] [place] [address], * Depression Screening (07/15/2023) Pathologist [facility] Depression Screening abstracted Kiesha Cardona MD HEALTH MAINTENANCE Final Result * (ABNORMAL) Lipid panel (07/02/2023) LDL/HDL Ratio 3 0 - 4 Triglycerides 105 0 - 150 mg/dL Cholesterol 228(A) 0 - 200 mg/dL HDL 91 >=40 mg/dL LDL Cholesterol 116(A) 0 - 100 mg/dL Blood Venous blood specimen / Unknown us Historical Provider LAB BLOOD ORDERABLES Petra l Result * Hepatitis C Screening (10/02/2019) Hepatitis C Screening abstracted Historical Provider HEALTH MAINTENANCE Final Result from Last 3 Months or Most Recently Relevant to Health Maintenance Insurance MEDICAID - [place] Care Teams Test Director Relationship Specialty Start Date End Date Dario Nj MD [address] [place] [address] PCP - General 07/02/1999
== END 2025-05-05 12:05 | disposition home or self-care (01) ==
LOC: HO.HMGAL 11:49
PROVIDERS: Visit Provider Registered Nurse Emergency
DX: J30.89 Other allergic rhinitis (principal)
CPT/HCPCS: 95117; 95165

== ENCOUNTER 2025-06-07 15:51 | Outpatient (AMB) | payer SELFPAY ==
--- OUTSIDE RECORDS SUMMARY | 2025-06-07 18:10 | XMS_ITS | Clinical Summary ---
Author Organization [facility] Address [address] [place] [address] Care Team Providers Care Dye Machine Tender Name Role Phone Unavailable Primary Care Provider Unavailabl e Allergies No known active allergies Medications atenoloL (TENORMIN) 25 mg tablet Take 25 mg by mouth once a day. 01/24/20 Active buPROPion SR (WELLBUTRIN SR) 200 mg tablet Take 200 mg by mouth 2 times a day. 02/20/20 22 Active omeprazole (PriLOSEC) 20 mg capsule Take 20 mg by mouth once a day. 02/13/20 22 Active traZODone (DESYREL) 100 mg tablet Take 200 mg by mouth nightly as needed. 02/20/20 Active escitalopram (LEXAPRO) 20 mg tablet Take 20 mg by mouth once a day. Active multivitamin capsule Take 1 capsule by mouth once a day. Active vitamin B complex capsule Take 1 capsule by mouth once a day. Active LORazepam (ATIVAN) 0.5 mg tablet Take 1 tablet (0.5 mg total) by mouth nightly as needed for anxiety. 08/14/20 Active Ventolin HFA 90 mcg/actuation inhaler SMARTSI Puff(s) By Mouth Every 4 Hours PRN 10/28/19 24 Active amoxicillin (AMOXIL) 500 mg capsule Take [...] capsule by mouth daily. 10/09/19 25 Active acetaminophen (TYLENOL) 325 mg tablet Take 2 tablets (650 mg total) by mouth every 6 hours. 05/13/20 25 Active polyethylene glycol 3350 (MIRALAX) 17 gram packet Take 1 packet (17 g total) by mouth daily as needed for constipation. Mix powder in 4 to 8 oz of water, juice, coffee, or tea prior to administration. 05/11/20 25 Active senna (SENOKOT) 8.6 mg tablet Take 2 tablets (17.2 mg total) by mouth nightly. 05/11/20 25 Active diclofenac sodium 1 % kit Apply 1 Application topically to the affected area as needed (pain). Not to hip 05/11/20 25 Active lisinopriL (PRINIVIL,ZEST RIL) 10 mg tablet Take 3 tablets (30 mg total) by mouth once a day. May resume in 1 week if BP>125/80 05/11/20 25 Active apixaban (ELIQUIS) 2.5 mg tablet Take 1 tablet (2.5 mg total) by mouth every 12 hours. 60 tablet 2 05/11/202024 Active naloxone HCl (Narcan) 4 mg/actuation nasal spray Administer 0.1 mL (4 mg total) into affected nostril(s) as needed (Unresponsivene ss with a suspected overdose). Instill the contents of 1 unit intranasally for suspected opioid overdose. Repeat after 3 minutes if no or minimal response. 2 each 1 05/11/20 25 Active mupirocin (BACTROBAN) 2% ointmentIndica tions:Preopera tive examination Apply topically to the affected area 2 times a day. Apply to bilateral nasal vestibule twice a day starting 5 days prior to surgery 22 g 05/05/20 25 2024 Discontinued(S top Taking at Discharge) lisinopriL (PRINIVIL,ZEST RIL) 10 mg tablet Take 30 mg by mouth once a day. 09/14/19 25 2024 Discontinued diclofenac sodium 1 % kit Apply 1 Application topically to the affected area as needed. 03/15/20 25 2024 Discontinued ibuprofen-diph enhydramine cit (Advil PM) 200-38 mg tablet Take 2 tablets by mouth nightly as needed. 2024 Discontinued(S top Taking at Discharge) aspirin 81 mg EC tablet Take 1 tablet (81 mg total) by mouth every 12 hours. Take with food. For 4 weeks. 05/11/20 25 2024 Discontinued(S top Taking at Discharge) oxyCODONE IR (ROXICODONE) 5 mg tablet Take 1 tablet (5 mg total) by mouth every 4 hours as needed for breakthrough pain for up to 5 days. Max Daily Amount: 30 mg 14 tablet 05/11/20 25 2024 Active Problems Problem Noted Date Diagnosed Date Primary osteoarthritis of right hip 05/11/2025 Asthma 06/30/2024 Gastroesophageal reflux disease without esophagi [...] Encounters Date Type Department Care Team Description 05/11/2025 12:48 PM EDT Anesthesia Event [facility] Operating Room [address] [place], [place] [id number] Manju Philip MD Boyd, Ryan, CRNA 05/11/2025 12:40 PM EDT - 05/11/2025 3:40 PM EDT Surgery [facility] Operating Room [address] [place] [address] [phone] Emanuel Byrne MD Right Total Hip Replacement [37451 (CPT )] 05/11/2025 10:40 AM EDT - 05/11/2025 8:32 PM EDT Hospital Encounter [facility] Operating Room [address] [place] [address] [phone] Emanuel Byrne MD Primary osteoarthritis of right hip Discharge Disposition: Left Against Medical Advice () 05/07/2025 Documentation [facility] [address] [place] [address] Erica Redmond, BOO 05/07/2025 Orders Only [facility] [address] [place] [address] [phone] Erica Redmond NP Hyponatremia (Primary Dx) 05/07/2025 Results Follow-Up [facility] [address] [facility] 3rd [place] [address] Ricardo Gutierrez PA 04/14/2025 9:09 AM EDT - 04/14/2025 11:59 PM EDT Hospital Encounter [facility] Xray [address] [place] [address] [phone] Emanuel Byrne MD Primary osteoarthritis of right hip Discharge Disposition: Home or Self Care () 04/14/2025 9:00 AM EDT Follow-Up [facility] [address] [place] [address] [phone] Emanuel Byrne MD Primary osteoarthritis of right [...] Sign Reading Time Taken Comments Blood Pressure 95/56 05/11/2025 7:50 PM EDT Pulse 78 05/11/2025 7:50 PM EDT Temperature 36 C (96.8 F) 05/11/2025 7:50 PM EDT Respiratory Rate 12 05/11/2025 7:50 PM EDT Oxygen Saturation 97% 05/11/2025 7:50 PM EDT Inhaled Oxygen Concentration - - Weight 121.6 kg (268 lb) 05/11/2025 11:00 AM EDT Height 172.7 cm (5' 8 ) 05/11/2025 11:00 AM EDT Body Mass Index 40.75 05/11/2025 11:00 AM EDT Plan of Treatment Upcoming Encounters Date Type Department Care Team (Late st Contact Info) Description 06/08/2025 1:00 PM EDT Follow-Up [facility] [address] [place] [phone] Bony, NICHOLAS Castellanos [address] [place] [phone] 07/07/2025 2:00 PM EST Follow-Up [facility] [address] [place] [address] [phone] Emanuel Byrne MD [address] [place] [phone] Health Maintenance Due Date Last Done Comments [...] 06/18/2023, Additional history exists Basic Metabolic Panel 05/11/2026 05/11/2025 , 05/11/2025, 05/10/2025, Additional history exists Diabetes Screening 05/11/2028 05/11/2025, 0 05/11/2025, 05/11/2025, Additional history exists DTaP,Tdap,and Td Vaccines (4 - Td or Tdap) 10/28/2030 10/28/2020, 10/28/2020, 02/20/2012, Additional history exists Zoster Vaccines Completed 05/05/2020, 02/23/2020 Hepatitis B Vaccines Aged Out No long er eligible based on patient's age to complete this topic Medical Devices Implanted Type Area Braille Teacher Device Identifier Shelf Expiration Date Model / Serial / Lot Shell Acetabular Size F 3 Hole Sterile 54mm G7 - [id number] Implanted:Qty: 1 on 08/14/2022 by Emanuel Byrne MD at [facility] Implant Left: Hip Slime 04/24/2032 [id number] / / [id number] Bearing Highly Crosslinked Polyethylene Vitamin E Dual Mobility 52top17hx Size F - [id number] Implanted:Qty: 1 on 08/14/2022 by Emanuel Byrne MD at [facility] Implant Left: Hip Slime 03/13/2027 [id number] / / [id number] Liner Acetabular Dual Mobility [place] Chrome Sterile Latex Free Size F 44mm G7 - [id number] Implanted:Qty: 1 on 08/14/2022 by Emanuel Byrne MD at [facility] Implant Left: Hip Slime 05/02/2032 [id number] / / [id number] Stem Femoral Standard Full Proximal Profile 47wwy130yn Type 1 Echo - [id number] Implanted:Qty: 1 on 08/14/2022 by Emanuel Byrne MD at [facility] Implant Left: Hip Slime 06/01/2032 [id number] / / [id number] Shell Acetabular Size F 3 Hole Sterile 54mm G7 - [id number] Implanted:Qty: 1 on 05/11/2025 by Emanuel Byrne MD at [facility] Implant Right: Hip Slime 09/09/2034 [id number] / / [id number] Bearing Highly Crosslinked Polyethylene Vitamin E Dual Mobility 33zdb32er Size F - [id number] Implanted:Qty: 1 on 05/11/2025 by Emanuel Byrne MD at [facility] Implant Right: Hip Slime 08/05/2029 [id number] / / [id number] Liner Acetabular Dual Mobility Cocr Sterile Latex Free Size F 44mm G7 - [id number] Implanted:Qty: 1 on 05/11/2025 by Emanuel Byrne MD at [facility] Implant Right: Hip Slime 12/29/2034 [id number] / / [id number] Stem Femoral Standard Full Proximal Profile 15mfp227vd Type 1 Echo - [id number] Implanted:Qty: 1 on 05/11/2025 by Emanuel Byrne MD at [facility] Implant Right: Hip Slime 12/21/2034 [id number] / / [id number] Head Femoral Ceramic 28/0mm Biolox - [id number] Implanted:Qty: 1 on 05/11/2025 by Emanuel Byrne MD at [facility] Implant Right: Hip Slime 10/30/2034 [id number] / / [id number] Screw Acetabular Self-Tapping 6.8vvh20ny Trilogy - [id number] Implanted:Qty: 1 on 08/14/2022 by Emanuel Byrne MD at [facility] Screw Left: Hip Slime 12/24/203163-2603-570- 30 / / [id number] Screw Acetabular Self-Tapping 6.0kkx11ut Trilogy - [id number] Implanted:Qty: 1 on 08/14/2022 by Emanuel Byrne MD at [facility] Screw Left: Hip Slime 04/06/203244-1246-420- 20 / / [id number] Screw Acetabular Self-Tapping 6.0zyi25lp Trilogy - [id number] Implanted:Qty: 1 on 05/11/2025 by Emanuel Byrne MD at [facility] Screw Right: Hip Slime 11/18/203486-0454-935- 20 / / [id number] Screw Acetabular Self-Tapping 6.3ukd86fo Trilogy - [id number] Implanted:Qty: 1 on 05/11/2025 by Emanuel Byrne MD at [facility] Screw Right: Hip Slime 01/14/203442-1171-124- 30 / / [id number] Biolox Delta Ceramic Femoral Head , 28mm,+3mmneck Implanted:Qty: 1 on 08/14/2022 by Emanuel Byrne MD at [facility] Left: Hip [employer] [id number] / / [id number] Procedures * Due to [place] state law, this organization might not be sharing negative HIV tests. Procedure Name Priority Date/Time Associated Diagnosis Comments XR HIP RIGHT 1 VIEW W PELVIS Routine 05/11/2025 4:10 PM EDT POCT GLUCOSE Routine 05/11/2025 4:05 PM EDT CBC Routine 05/11/2025 3:56 PM EDT BASIC METABOLIC PANEL Routine 05/11/2025 3:56 PM EDT TISSUE EXAM Routine 05/11/2025 1:42 PM EDT Primary osteoarthritis of right hip CA TOTAL HIP ARTHROPLASTY 05/11/2025 12:33 PM EDT Primary osteoarthritis of right hip Special Needs Biomet G7, Bimetric BASIC METABOLIC PANEL STAT 05/11/2025 11:45 AM EDT POCT GLUCOSE Routine 05/11/2025 10:56 AM EDT BASIC METABOLIC PANEL Routine 05/10/2025 12:01 PM EDT Hyponatremia XR CHEST 2 VW Routine 05/05/2025 10:35 AM EDT Preop testing Primary osteoarthritis of right hip ECG 12-LEAD Routine 05/05/2025 9:39 AM EDT Preop testing Primary osteoarthritis of right hip PREALBUMIN Routine 05/05/2025 9:30 AM EDT Preop testing Primary osteoarthritis of right hip MRSA/S AUREUS PCR, NASAL Routine 05/05/2025 9:30 AM EDT Preop testing Primary osteoarthritis of right hip MRSA/S AUREUS PCR, THROAT Routine 05/05/2025 9:30 AM EDT Preop testing Primary osteoarthritis of right hip VELEZ TOP, URN Routine 05/05/2025 9:30 AM EDT Preop testing Primary osteoarthritis of right hip UA/CULTURE REFLEX Routine 05/05/2025 9:3 0 AM EDT Preop testing Primary osteoarthritis of right hip URINALYSIS W/REFLEX TO MICROSCOPIC & CULTURE Routine 05/05/2025 9:30 AM EDT Preop testing Primary osteoarthritis of right hip TYPE AND SCREEN Routine 05/05/2025 9:30 AM EDT Preop testing Primary osteoarthritis of right hip HEMOGLOBIN A1C Routine 05/05/2025 9:30 AM EDT Preop testing [...] Preop testing Primary osteoarthritis of right hip URINE CULTURE, ROUTINE Routine 05/05/2025 9:30 AM EDT Preop testing Primary osteoarthritis of right hip XR HIP RIGHT 2 VIEWS AND 1 VIEW PELVIS Routine 04/14/2025 9:32 AM EDT Primary osteoarthritis of right hip from Last 3 Months Results * Due to [place] state law, this organization might not be sharing negative HIV tests. * X-Ray Hip Right 1 View with Pelvis (05/11/2025 4:10 PM EDT) Anatomical Region Laterality Modality Body, Pelvis, Hip Right Computed Radio graphy 05/11/2025 5:15 PM EDT Impressions 05/11/2025 5:53 PM EDT FINDINGS/IMPRESSION: Status post noncemented right hip arthroplasty secured with acetabular augmentation screw, standard alignment on this AP radiograph. Expected postsurgical changes in the surrounding soft tissues. Partially visualized left hip arthroplasty hardware. If this radiology report contains a blank impression section, it is an incomplete radiology report. Please contact the interpreting radiologist or applicable radiology division as soon as possible to obtain the completed interpretation. Workstation ID: [id number] Narrative 05/11/2025 5:53 PM EDT COMPARISON: 04/14/2025 Resulting Agency Comment [id number] Procedure Note Adan Alfredo MD - 05/11/2025 COMPARISON: 04/14/2025 IMPRESSION: FINDINGS/IMPRESSION: Status post noncemented right hip arthroplasty secured with acetabularaugmentation screw, standard alignment on this AP radiograph. Expectedpostsurgical changes in the surrounding soft tissues. Partiallyvisualized left hip arthroplasty hardware. If this radiology report contains a blank impression section, it is anincomplete radiology report. Please contact the interpreting radiologistor applicable radiology division as soon as possible to obtain thecompleted interpretation. Workstation ID: [id number] us Emanuel Byrne MD IMG XR PROCEDURES Final Res ult * (ABNORMAL) POCT Glucose, interfaced (05/11/2025 4:05 PM EDT) Only the most recent of2 resultswithin the time period is included. Glucose, POCT 105(H) 70 - 99 mg/dL 05/11/2025 4:07 PM EDT [facility] Comment: The client services account manager has not determined the efficacy of this test in Critically ill patients. [facility] defines Critically ill patients for the purpose of blood glucose monitoring (BGM) by glucometer, as patients meeting one or more of the following criteria: Hypotension- non-ICU patients (systolic blood pressure Less than 90 mmHg) due to shock Hypotension -ICU patients (Mean Arterial Pressure (MAP) <60 mmHg or systolic blood pressure < 90 mmHg due to shock Patients receiving Vasopressors (phenylephrine, vasopressin or norepinephrine) Anasarca In all locations, BGM test results should not be relied upon in the above situations, unless these results confirmed with lab-based glucose values. Blood 05/11/2025 4:05 PM EDT 05/11/2025 4:07 PM EDT us Emanuel Byrne MD LAB POCT ORDERABLES - DEVIC E Final Result [facility] [address] [place] [address], [place] * (ABNORMAL) CBC (05/11/2025 3:56 PM EDT) WBC 16.8(H) 3.8 - 10.8 10*3/uL 05/11/2025 4:11 PM EDT [facility] RBC 3.62(L) 4.20 - 5.80 10*6/uL 05/11/2025 4:11 PM EDT [facility] Hemoglobin 12.5(L) 13.2 - 17.1 g/dL 05/11/2025 4:11 PM EDT [facility] Hematocrit 36.7(L) 38.5 - 50.0 % 05/11/2025 4:11 PM EDT [facility] MCV 101.4(H) 80.0 - 100.0 fL 05/11/2025 4:11 PM EDT [facility] MCH 34.5(H) 27.0 - 33.0 pg 05/11/2025 4:11 PM EDT [facility] MCHC 34.1 32.0 - 36.0 g/dL 05/11/2025 4:11 PM EDT [facility] RDW 11.9 11.0 - 15.0 % 05/11/2025 4:11 PM EDT [facility] Platelets 283 140 - 400 10*3/uL 05/11/2025 4:11 PM EDT [facility] MPV 8.2 7.5 - 12.5 fL 05/11/2025 4:11 PM EDT [facility] Blood Structure of peripheral vein / Unknown Venipuncture / Unknown 05/11/2025 3:56 PM EDT 05/11/2025 4:02 PM EDT us Emanuel Byrne MD LAB BLOOD ORDERABLES Final Result [facility] [address] [place] [address], * (ABNORMAL) Basic Metabolic Panel (05/11/2025 3:56 PM EDT) Only the most recent of3 resultswithin the time period is included. NA 131(L) 135 - 145 mmol/L 05/11/2025 4:37 PM EDT [facility] K 4.4 3.5 - 5.3 mmol/L 05/11/2025 4:37 PM EDT [facility] Cl 96(L) 98 - 107 mmol/L 05/11/2025 4:37 PM EDT [facility] CO2 26 22 - 32 mmol/L 05/11/2025 4:37 PM EDT [facility] BUN 13 7 - 23 mg/dL 05/11/2025 4:37 PM EDT [facility] Creatinine 1.54(H) 0.60 - 1.30 mg/dL 05/11/2025 4:37 PM EDT [facility] Glucose 126(H) 65 - 99 mg/dL 05/11/2025 4:37 PM EDT [facility] Calcium 8.7 8.6 - 10.5 mg/dL 05/11/2025 4:37 PM EDT [facility] Anion Gap 9 5 - 15 05/11/2025 4:37 PM EDT [facility] eGFR 50(L) >=60 mL/min/1 .73m2 05/11/2025 4:37 PM EDT [facility] Comment:The estimated glomer ular filtration rate (eGFR) is calculated using a new formula developed by the NKF-ASN task force to eliminate race-based correction factors. The new formula uses serum/plasma creatinine, age, and gender to determine eGFR. A value below 60mls/min might indicate kidney disease and will be flagged. For additional information, see Townsend et al, Am J Kidney Dis. 2021;79(2):268- 288, A Unifying Approach for GFR estimation: Recommendations of the NKF-ASN Task Force on Reassessing the Inclusion of Race in Diagnosing Kidney Disease . Blood Structure of peripheral vein / Unknown Venipuncture / Unknown 05/11/2025 3:56 PM EDT 05/11/2025 4:02 PM EDT us Emanuel Byrne MD LAB BLOOD ORDERABLES Final Result [facility] [address] [place] [address], * Tissue Exam (05/11/2025 1:42 PM EDT) Final Diagnosis Bone, Right Femoral Head, Right Total Hip Replacement: - Osteoarthritis with bony eburnation. [facility] MANUAL 05/14/2025 3:25 PM EDT [facility] at 1525 EDT Clinical History Pre-op diagnosis: Primary osteoarthritis of right hip [M16.11] [facility] MANUAL 05/14/2025 3:25 PM EDT [facility] Gross Description 1. Femoral Head, Right The specimen is received in formalin, labeled with the patient's name, medical record number, date of , and right femoral head . It consists of a 5.0 x 4.9 x 3.7 cm femoral head with 3.5 x 3.4 x 1.3 cm attached femoral neck. The articular surface is figueroa-reynolds with adherent brown, firm, lobulated tissue, moderate osteophyte growth, and a 1.0 x 0.5 cm area of eburnation. The cut surfaces are figueroa-yellow, hemorrhagic, trabeculated, with a 0.4 x 0.4 cm red-figueroa, subchondral cyst. Also in the same container is a 8.5 x 8 x 2.5 cm aggregate of multiple red-figueroa to brown-red, firm, lobulated tissue fragments. Phonograph Cartridge Assembler sections are submitted as follows: 1A: Femoral head to include eburnation and subchondral cyst 1B: Additional fragments [facility] 05/14/2025 3:25 PM EDT [facility] Gross Description User Grossing complete by Char Jackson on 05/12/2025 11:57 AM [facility] MANUAL 05/14/2025 3:25 PM EDT [facility] Embedded Images [facility] 05/14/2025 3:[address] [facility] [employer] [facility] Resulting Agency Case was signed out at [facility], Department of Pathology, [employer] 3 CLIA [id number] [facility] 05/14/2025 3:[address] [facility] [employer] [facility] Report Header Surgical Pathology Report Case: [id number] Authorizing Provider: Emanuel Byrne MD Collected: 05/11/2025 1342 Ordering Location: [facility] Received: 05/11/[address] [facility] Operating Room Pathologist: Carmenza Matthews MD Specimen: Femoral Head, Right, Right Femoral Head 05/14/2025 3:[address] [facility] [employer] [facility] Bone Structure of head of right femur / Unknown 05/11/2025 1:42 PM EDT 05/11/2025 4:47 PM EDT Comment:Pre-op diagnosis: Primary osteoarthritis of right hip [M16.11] Emanuel Byrne MD LAB PATHOLOGY/CYTOLOGY TONYA SMALL Final Result [facility] [employer] [facility] [address] [place] [address], [facility] [address] [place] [address], * X-Ray Chest 2 Views (05/05/2025 10:35 AM EDT) Anatomical Region Laterality Modality Body Computed Radiogr aphy 05/05/2025 2:19 PM EDT Impressions 05/05/2025 2:19 PM EDT No change. Negative. Heart normal. Lungs clear. If this radiology report contains a blank impression section, it is an incomplete radiology report. Please contact the interpreting radiologist or applicable radiology division as soon as possible to obtain the completed interpretation. Workstation ID: [id number] Narrative 05/05/2025 2:19 PM EDT COMPARISON: 06/30/2024 FINDINGS AND Resulting Agency Comment [id number] Procedure Note Pedro Red MD - 05/05/2025 COMPARISON: 06/30/2024 FINDINGS AND IMPRESSION: No change. Negative. Heart normal. Lungs clear. If this radiology report contains a blank impression section, it is anincomplete radiology report. Please contact the interpreting radiologistor applicable radiology division as soon as possible to obtain thecompleted interpretation. Workstation ID: [id number] Ann Lazar GEOGRAPHIC INFORMATION SYSTEM SURVEYOR IMG XR PROCEDURES Final Res ult * ECG 12 lead For Preop? Yes (05/05/2025 9:39 AM EDT) Ventricular Rate EKG 71 BPM MUSE EKG Atrial Rate 71 BPM MUSE EKG CA Interval 192 ms MUSE EKG QRS Interval 96 ms MUSE EKG QT Interval 416 ms MUSE EKG QTC Interval 452 ms MUSE EKG P [place] -2 degrees MUSE EKG R [place] 37 degrees MUSE EKG T Wave [place] 39 degrees MUSE EKG 05/05/2025 9:39 AM EDT 05/06/2025 10:18 PM EDT Impressions MUSE EKG - 05/06/2025 10:18 PM EDT NORMAL SINUS RHYTHM NORMAL ECG WHEN COMPARED WITH ECG OF 30-Jun-2024 08:51, NO SIGNIFICANT CHANGE WAS FOUND Confirmed by Leonela Parham ([id number]) on 05/06/2025 10:18:15 PM Narrative Procedure Note Leonela Parham MD - 05/06/2025 IMPRESSION: NORMAL SINUS RHYTHM NORMAL ECG WHEN COMPARED WITH ECG OF 30-Jun-2024 08:51, NO SIGNIFICANT CHANGE WAS FOUND Confirmed by Leonela Parham ([id number]) on 05/06/2025 10:18:15 PM Ann Lazar NP ECG ORDERABLES Final Resul t MUSE EKG * Veelz Top, Urine (05/05/2025 9:30 AM EDT) Extra Tube Hold for add-ons. 05/05/2025 2:05 PM EDT [facility] Comment:Auto resulted. Urine Urine specimen collection, clean catch / Unknown Non-Blood Collection / Unknown 05/05/2025 9:30 AM EDT 05/05/2025 1:22 PM EDT Ann Lazar NP LAB URINE ORDERABLES Final Result [facility] [address] [place] [address], [place] * (ABNORMAL) Urinalysis W/Reflex to Microscopic & Culture (05/05/2025 9:30 AM EDT) Color, Urine Light Yellow Colorless, Light Yellow, Yellow, Dark Yellow 05/05/2025 1:37 PM EDT [facility] Clarity, Urine Clear Clear 05/05/2025 1:37 PM EDT [facility] Specific [place], Urine 1.013 <1.030 05/05/2025 1:37 PM EDT [facility] pH, Urine 6.0 4.6 - 8.0 05/05/2025 1:37 PM EDT [facility] Protein, Urine Negative Negative 05/05/2025 1:37 PM EDT [facility] Glucose, Urine Normal Normal 05/05/2025 1:37 PM EDT [facility] Ketones, Urine Negative Negative 05/05/2025 1:37 PM EDT [facility] Bilirubin, Urine Negative Negative 05/05/2025 1:37 PM EDT [facility] Blood, Urine Negative Negative 05/05/2025 1:37 PM EDT [facility] Nitrite, Urine Negative Negative 05/05/2025 1:37 PM EDT [facility] Urobilinogen, Urine Normal Normal 05/05/2025 1:37 PM EDT [facility] LABORATORY Leukocyte Esterase, Urine Trace(A) Negative 05/05/2025 1:37 PM EDT [facility] WBC, Urine 2 0 - 2 /HPF 05/05/2025 1:37 PM EDT [facility] RBC, Urine 1 0 - 2 /HPF 05/05/2025 1:37 PM EDT [facility] Hyaline Casts, Urine 0 0 - 2 /LPF 05/05/2025 1:37 PM EDT [facility] Squamous Epithelial Cells, Urine <1 /HPF 05/05/2025 1:[address] [facility] [employer] CLINICAL [facility] LABORATORY Bacteria, Urine None Seen None /HPF /HPF 05/05/2025 1:[address] [facility] [employer] [facility]OR[facility] Urine Urine specimen collection, clean catch / Unknown Non-Blood Collection / Unknown 05/05/2025 9:30 AM EDT 05/05/2025 1:22 PM EDT Ann Lazar GEOGRAPHIC INFORMATION SYSTEM SURVEYOR LAB URINE ORDERABLES Final Result [facility] [employer] [facility] [address] [place] [address], [place] * MRSA/S aureus PCR, Throat (05/05/2025 9:30 AM EDT) Pathologist [facility] MRSA PCR, Throat NOT DETECTED NOT DETECTED 05/06/2025 3:01 AM EDT [employer] [facility] S. aureus PCR, Throat NOT DETECTED NOT DETECTED 05/06/2025 3:01 AM EDT [employer] [facility] Comment: The analytical performance characteristics of this assay have been determined by [employer]. The modifications have not been cleared or approved by the FDA. This assay has been validated pursuant to the CLIA regulations and is used for clinical purposes. Swab Structure of anterior region of neck / Unknown Non-Blood Collection / Unknown 05/05/2025 9:30 AM EDT 05/05/2025 1:22 PM EDT Narrative [facility] 05/06/2025 3:01 AM EDT [facility] Received Date:[id number] Ann Lazar GEOGRAPHIC INFORMATION SYSTEM SURVEYOR LAB BODY FLUIDS AND STOOLS ORDERABLES Final Result [facility] [address] [facility] [address], [place] [address], [place] [phone] [employer] [facility] [address] [facility] [address], [place] [address], [place] [phone] * MRSA/S aureus PCR, Nasal (05/05/2025 9:30 AM EDT) [facility] MRSA PCR, Nasal NOT DETECTED NOT DETECTED 05/06/2025 3:01 AM EDT [employer] [facility] S. aureus PCR, Nasal NOT DETECTED NOT DETECTED 05/06/2025 3:01 AM EDT [employer] [facility] Swab Nasal structure / Unknown Non-Blood Collection / Unknown 05/05/2025 9:30 AM EDT 05/05/2025 1:22 PM EDT [facility] - 05/06/2025 3:01 AM EDT [facility] Received Date:[id number] Ann Lazar NP LAB BODY FLUIDS AND STOOLS ORDERABLES Final Result [facility] [address] [facility] [address], [place] [address], [employer] [facility] [address], [place] [address], * (ABNORMAL) CBC Auto Differential (05/05/2025 9:30 AM EDT) [facility] WBC 8.1 3.8 - 10.8 10*3/uL 05/05/2025 11:32 AM EDT [facility] RBC 3.61(L) 4.20 - 5.80 10*6/uL 05/05/2025 11:32 AM EDT [facility] Hemoglobin 12.3(L) 13.2 - 17.1 g/dL 05/05/2025 11:32 AM EDT [facility] Hematocrit 34.7(L) 38.5 - 50.0 % 05/05/2025 11:32 AM EDT [facility] MCV 96.1 80.0 - 100.0 fL 05/05/2025 11:32 AM EDT [facility] MCH 34.1(H) 27.0 - 33.0 pg 05/05/2025 11:32 AM EDT [facility] MCHC 35.4 32.0 - 36.0 g/dL 05/05/2025 11:32 AM EDT [facility] RDW 11.7 11.0 - 15.0 % 05/05/2025 11:32 AM EDT [facility] Platelets 286 140 - 400 10*3/uL 05/05/2025 11:32 AM EDT [facility] MPV 9.3 7.5 - 12.5 fL 05/05/2025 11:32 AM EDT [facility] Neutrophil % 62.1 % 05/05/2025 11:32 AM EDT [facility] Immature Grans % 0.5 0.0 - 0.9 % 05/05/2025 11:32 AM EDT [facility] Lymphocyte % 23.6 % 05/05/2025 11:32 AM EDT [facility] Monocyte % 9.5 % 05/05/2025 11:32 AM EDT [facility] Eosinophil % 3.4 % 05/05/2025 11:32 AM EDT [facility] Basophil % 0.9 % 05/05/2025 11:32 AM EDT [facility] Neutrophil # 5.04 1.50 - 7.80 10*3/uL 05/05/2025 11:32 AM EDT [facility] Immature Grans # 0.04(H) <=0.03 10*3/uL 05/05/2025 11:32 AM EDT [facility] Lymphocyte # 1.90 0.85 - 3.90 10*3/uL 05/05/2025 11:32 AM EDT [facility] Monocyte # 0.80 0.20 - 0.95 10*3/uL 05/05/2025 11:32 AM EDT [facility] Eosinophil # 0.30 0.02 - 0.50 10*3/uL 05/05/2025 11:32 AM EDT [facility] Basophil # 0.10 0.00 - 0.20 10*3/uL 05/05/2025 11:32 AM EDT [facility] nRBC % 0.0 /100 WBCs 05/05/2025 11:32 AM EDT [facility] nRBC # <0.01 <0.01 10*3/uL 05/05/2025 11:32 AM EDT [facility] Blood Structure of peripheral vein / Unknown Venipuncture / Unknown 05/05/2025 9:30 AM EDT 05/05/2025 11:08 AM EDT Ann Lazar NP LAB BLOOD ORDERABLES Final Result Performing Organization Address [facility]/ZIP Co de Phone Number [facility] [address] [place] [address], [place] * PTT (05/05/2025 9:30 AM EDT) aPTT 27.6 23.0 - 32.0 Seconds 05/05/2025 11:45 AM EDT [facility] Comment: Current PTT reagent is not sensitive to detect all Lupus Anticoagulant (LA) Inhibitor Cases. If a LA is suspected, please order a Lupus Anticoagulation w/ Reflex Test which is performed at [facility] in [place], [place]. Blood Structure of peripheral vein / Unknown Venipuncture / Unknown 05/05/2025 9:30 AM EDT 05/05/2025 11:08 AM EDT Ann Lazar NP LAB BLOOD ORDERABLES Final Result Performing Organization Address [facility]/ZIP Co de Phone Number [facility] [address] [place] [address], [place] * Protime-INR (05/05/2025 9:30 AM EDT) PT 10.8 9.6 - 12.4 Seconds 05/05/2025 11:[address] [facility] [employer] CL[facility] LAB[facility] INR 1.0 0.9 - 1.1 05/05/2025 11:45 AM EDT [facility] Comment:The optimal therapeu tic INR range for patients treated with Vitamin K antagonists (VKAS, e.g., Warfarin) is 2.0 to 3.5. Discuss the desired range with your doctor/care team. Blood Structure of peripheral vein / Unknown Venipuncture / Unknown 05/05/2025 9:30 AM EDT 05/05/2025 11:08 AM EDT Ann aLzar NP LAB BLOOD ORDERABLES Final Result Performing Organization Address City/[facility]/ZIP Co de Phone Number [facility] [address] [place] [address], * Type and Screen (05/05/2025 9:30 AM EDT) Pathologist [facility] ABO Blood Type B 05/05/2025 5:09 PM EDT [facility] RH Type Positive 05/05/2025 5:09 PM EDT [facility] Expiration Date/Time 2025-05-14 23:59 05/05/2025 5:09 PM EDT [facility] Antibody Screen Negative 05/05/2025 5:09 PM EDT [facility] Blood Structure of peripheral vein / Unknown Venipuncture / Unknown 05/05/2025 9:30 AM EDT 05/05/2025 11:00 AM EDT Ann Lazar NP LAB BLOOD BANK TEST ORDERAB LES Final Result [facility] [address] [place] [address], * Urine Culture, Routine (05/05/2025 9:30 AM EDT) Pathologist [facility] Culture No growth 05/06/2025 3:26 PM EDT [employer] [facility] Urine Urine specimen collection, clean catch / Unknown Non-Blood Collection / Unknown 05/05/2025 9:30 AM EDT 05/05/2025 1:34 PM EDT Narrative [facility] - 05/06/2025 3:26 PM EDT [facility] Received Date:[id number] MICRO NUMBER: [id number] SPECIMEN QUALITY: Adequate SOURCE: URINE CLEAN CATCH STATUS: FINAL Ann Lazar NP LAB MICROBIOLOGY - GENERAL ORDERABLES Final Result [facility] [address], [place] [address], [employer] [address], [place] [address], * Prealbumin (05/05/2025 9:30 AM EDT) Pathologist [facility] Prealbumin 26 18 - 40 mg/dL 05/05/2025 11:44 AM EDT [facility] Blood Structure of peripheral vein / Unknown Venipuncture / Unknown 05/05/2025 9:30 AM EDT 05/05/2025 11:08 AM EDT Ann Lazar NP LAB BLOOD ORDERABLES Final Result [facility] [address] [place] [address], * Hemoglobin A1c (05/05/2025 9:30 AM EDT) [facility] Hemoglobin A1C 4.9 <5.7 % 05/06/2025 10:14 AM EDT [employer] [facility] Comment: For the purpose of screening for the presence of diabetes: <5.7% Consistent with the absence of diabetes 5.7-6.4% Consistent with increased risk for diabetes (prediabetes) > or =6.5% Consistent with diabetes This assay result is consistent with a decreased risk of diabetes. Currently, no consensus exists regarding use of hemoglobin A1c for diagnosis of diabetes in children. According to [place] Diabetes Association (ADA) guidelines, hemoglobin A1c <7.0% represents optimal control in non- diabetic patients. Different metrics may apply to specific patient populations. Standards of Medical Care in Diabetes(ADA). eAG (MG/DL) 94 mg/dL 05/06/2025 10:14 AM EDT [employer] eAG (MMOL/L) 5.2 mmol/L 05/06/2025 10:14 AM EDT [employer] Blood Structure of peripheral vein / Unknown Venipuncture / Unknown 05/05/2025 9:30 AM EDT 05/05/2025 11:09 AM EDT [facility] 05/06/2025 10:14 AM EDT [facility] Received Date:[id number] Ann Lazar GEOGRAPHIC INFORMATION SYSTEM SURVEYOR LAB BLOOD ORDERABLES Final Result [facility] [address] [facility] [address], [place] [address], [employer] [facility] [address], [place] [address], * (ABNORMAL) Comprehensive metabolic panel (05/05/2025 9:30 AM EDT) NA 126(L) 135 - 145 mmol/L 05/05/2025 11:44 AM EDT [facility] K 4.3 3.5 - 5.3 mmol/L 05/05/2025 11:44 AM EDT [facility] Cl 88(L) 98 - 107 mmol/L 05/05/2025 11:44 AM EDT [facility] CO2 25 22 - 32 mmol/L 05/05/2025 11:44 AM EDT [facility] Anion Gap 13 5 - 15 05/05/2025 11:44 AM EDT [facility] Glucose 90 65 - 99 mg/dL 05/05/2025 11:44 AM [facility] Creatinine 1.30 0.60 - 1.30 mg/dL 05/05/2025 11:44 AM [facility] Calcium 9.6 8.6 - 10.5 mg/dL 05/05/2025 11:44 AM ED [facility] Total Protein 7.6 6.0 - 8.0 g/dL 05/05/2025 11:44 AM [facility] Albumin 4.1 3.5 - 5.2 g/dL 05/05/2025 11:44 AM [facility] Bilirubin, Total 0.5 0.2 - 1.2 mg/dL 05/05/2025 11:44 AM [facility] Alkaline Phosphatase 68 35 - 129 U/L 05/05/2025 11:44 AM [facility] AST 26 10 - 40 U/L 05/05/2025 11:44 AM [facility] ALT 19 10 - 40 U/L 05/05/2025 11:44 AM [facility] BUN 14 7 - 23 mg/dL 05/05/2025 11:44 AM [facility] eGFR 61 >=60 mL/min/1. 73m2 05/05/2025 11:44 AM [facility] Comment:The estimated glomer ular [...] 2.1 - 4.2 g/dL 05/05/2025 11:44 AM EDT [facility] [employer] CL[facility] LAB[facility] A/G Ratio 1.2(L) 1.5 - 3.0 05/05/2025 11:44 AM EDT [facility] [employer] CLINICAL [facility]OLOG[facility] LABORATORY Blood Structure of peripheral vein / Unknown Venipuncture / Unknown 05/05/2025 9:30 AM EDT 05/05/2025 11:08 AM EDT us Ann Lazar NP LAB BLOOD ORDERABLES Final Result [facility] [employer] [facility] LAB[facility] [address] [place] [address], [place] * XR Hip Right 2 Views [...] to obtain the completed interpretation. Workstation ID: [id number] Narrative 04/14/2025 9:48 AM EDT COMPARISON: 08/14/2023 FINDINGS AND Resulting Agency Comment [id number] Procedure Note Lisha Joshi MD - 04/14/2025 [...] possible to obtain thecompleted interpretation. Workstation ID: [id number] us Emanuel Byrne MD IMG XR PROCEDURES Final Res ult from Last 3 Months Insurance [employer] Advance Directives Documents on File Type Date Recorded Patient Phonograph Cartridge Assembler Expl anation Health Care Proxy 08/14/2022 5:55 AM * Full Code (Latest Code Status on File) Date Activated Date Inactivated Comments 05/11/2025 3:20 PM 05/11/2025 10:37 PM * Full Code Date Activated Date Inactivated Comments 05/11/2025 11:14 AM 05/11/2025 3:20 PM * Full Code Date Activated Date Inactivated Comments 08/14/2022 10:21 AM 08/14/2022 9:57 PM * Full Code Date Activated Date Inactivated Comments 08/14/2022 5:33 AM 08/14/2022 10:21 AM Healthcare Agents on File Name Relationship Healthcare Agent Relationship Communication Rosa Finch Spouse Health Care Agent
--- OUTSIDE RECORDS SUMMARY | 2025-06-07 18:10 | XMS_ITS | Clinical Summary ---
Author Organization [facility] [address] [place] [address] [place] [address] Phone Care Team Providers Care Weaving Teacher Name Role Phone Dario Nj MD Primary Care Provider [phone] Allergies No known active allergies Medications albuterol [...] Severe obesity (BMI 35.0-35. 9 with comorbidity) ([facility] V24, [facility] V28) 06/18/2024 History of hip [...] hypertension, benign 01/02/2006 Pure hypercholesterolemia 01/02/2006 Immunizations Immunization Administration Dates Next Due H1N1 Inj Preservative [...] Surgery Date Site/Laterality Comments COLONOSCOPY 07/29/2012 PROCEDURE: ID COLONOSCOPY FLX DX W/COLLJ SPEC WHEN PFRMD; [...] Health Maintenance Due Date Last Done Comments Colorectal Cancer Screening: Colonoscopy 1961 Hepatitis A Vaccines (1 of 2 - Risk 2-dose series) 01/04/1980 Pneumococcal Vaccine: 50+ Years (1 of 2 - PCV) 01/04/1980 RSV Immunization Adult Patients (1 - Risk 60-74 years 1-dose series) 2021 HIV Screening 08/11/2022 Social Influencers of Health [...] mmol/L LAB CHEMISTRY METHOD 07/09/2024 5:12 PM [facility] Potassium 4.4 3.5 - 5.5 mmol/L LAB CHEMISTRY METHOD 07/09/2024 5:12 PM [facility] Chloride 98 96 - 110 mmol/L LAB CHEMISTRY METHOD 07/09/2024 5:12 PM [facility] CO2 30 21 - 32 mmol/L LAB CHEMISTRY METHOD 07/09/2024 5:12 PM [facility] Anion Gap 6 3 - 11 LAB CHEMISTRY METHOD 07/09/2024 5:12 PM [facility] Glucose 105(H) 70 - 100 mg/dL LAB CHEMISTRY METHOD 07/09/2024 5:12 PM [facility] BUN 14 5 - 25 mg/dL LAB CHEMISTRY METHOD 07/09/2024 5:12 PM [facility] Creatinine 1.25 0.70 - 1.30 mg/dL LAB CHEMISTRY METHOD 07/09/2024 5:12 PM [facility] eGFR 65 >=60 mL/min/1. 73m2 LAB CHEMISTRY METHOD 07/09/2024 5:12 PM [facility] Comment:Calculation based on the Chronic Kidney Disease Epidemiology Collaboration (CKD-EPI) equation refit without adjustment for race. BUN/Creatinine Ratio 11.2 LAB CHEMISTRY METHOD 07/09/2024 5:12 PM [facility] Calcium 9.7 8.5 - 10.5 mg/dL LAB CHEMISTRY METHOD 07/09/2024 5:12 PM [facility] AST (SGOT) 26 10 - 42 unit/L LAB CHEMISTRY METHOD 07/09/2024 5:12 PM [facility] ALT (SGPT) 25 10 - 60 unit/L LAB CHEMISTRY METHOD 07/09/2024 5:12 PM [facility] Alkaline Phosphatase 92 42 - 121 unit/L LAB CHEMISTRY METHOD 07/09/2024 5:12 PM [facility] Total Protein 8.3(H) 6.0 - 8.0 g/dL LAB CHEMISTRY METHOD 07/09/2024 5:12 PM [facility] Albumin 4.0 3.2 - 5.0 g/dL LAB CHEMISTRY METHOD 07/09/2024 5:12 PM [facility] Total Bilirubin 0.7 0.0 - 1.4 mg/dL LAB CHEMISTRY METHOD 07/09/2024 5:12 PM [facility] Blood Venous blood specimen / Unknown Venipuncture / Unknown 07/09/2024 1:09 PM EST 07/09/2024 1:09 PM EST Dario Nj MD LAB BLOOD ORDERABLES Final Resul t [facility] [address] [place] [address], * Depression Screening (07/15/2023) Pathologist [facility] Depression Screening abstracted Kiesha Cardona MD HEALTH [...] Maintenance Insurance MEDICAID - [place] Care Teams Weaving Teacher Relationship Specialty Start Date End Date Dario Nj MD [address] [place] [address] PCP - General 07/02/1999
--- OUTSIDE RECORDS SUMMARY | 2025-06-07 18:10 | XMS_ITS | Encounter Summary ---
Author Organization [facility] Address [address] [place] [address] Care Team Providers Care Dry Cans Back Tender Name Role Phone Dario Nj Primary Care Provider [phone] Encounter Details Date Type Department Care Team (Late st Contact Info) Description 05/07/2025 Results Follow-Up [facility] [address] [facility] [address] [place] [address] Ricardo Gutierrez PA [address] [facility] [place] [address] Social History Tobacco Use Types Packs/Day Years Used Date Smoking Tobacco: Never Smokeless Tobacco: Never Alcohol Use Standard Drinks/Week Comments Yes 21 (1 standard drink = 0.6 oz pu re alcohol) vodka Sex and Gender Information Value Date Recorded Sex Assigned at Male 08/08/2022 11:13 AM EST Legal Sex Male 9:20 AM EDT Gender Identity Male 08/08/2022 11:13 AM EST Sexual Orientation Straight 08/08/2022 11 :13 AM EST documented as of this encounter Plan of Treatment Upcoming Encounters Date Type Department Care Team (Late st Contact Info) Description 06/08/2025 1:00 PM EDT Follow-Up [facility] [address] [place] [address] BonyEmanuel PA [address] [place] [address] 07/07/2025 2:00 PM EST Follow-Up [facility] [address] [place] [phone] Emanuel Byrne MD [address] [place] [phone] documented as of this encounter Visit Diagnoses Not on filedocumented in this encounter Care Teams Dry Cans Back Tender Relationship Specialty Start Date End Date Dario Nj PCP - General Internal Medicine 04/04/22 05/10/25 documented as of this encounter
== END 2025-06-07 15:53 | disposition home or self-care (01) ==
LOC: HO.HMGAL 15:51
PROVIDERS: PCP Nurse Practitioner Family; Visit Provider Registered Nurse Emergency
DX: J30.89 Other allergic rhinitis (principal)
CPT/HCPCS: 95117; 95165

== ENCOUNTER 2025-07-14 15:48 | Outpatient (AMB) | payer OTHER, SELFPAY ==
--- OUTSIDE RECORDS SUMMARY | 2025-07-14 18:49 | XMS_ITS | Clinical Summary ---
Author Organization [facility] [address] [place] [address] [place] [phone] Phone Care Team Providers Care Construction And Maintenance Inspector Name Role Phone Dario Nj MD Primary Care Provider [phone] Allergies No known active allergies Medications albuterol [...] 1 (one) time each day. 30 each 11 07/14/2024 Active atenoloL (TENORMIN) 25 mg tablet [...] Severe obesity (BMI 35.0-35. 9 with comorbidity) ([facility] V24, 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 DDD (degenerative disc disease), lumbar 06/05/20 Facet arthropathy 06/05/2021 Alcohol abuse 02/26/2020 Anemia [...] Surgery Date Site/Laterality Comments COLONOSCOPY 07/29/2012 PROCEDURE: [place] COLONOSCOPY FLX DX W/COLLJ SPEC WHEN PFRMD; [...] RSV Immunization Adult Patients (1 - Risk 50-74 years 1-dose series) 2011 HIV Screening 08/11/2022 Social Influencers of Health [...] mmol/L LAB CHEMISTRY METHOD 07/09/2024 5:12 PM [facility] Potassium 4.4 3.5 - 5.5 mmol/L LAB CHEMISTRY METHOD 07/09/2024 5:12 PM [facility] Chloride 98 96 - 110 mmol/L LAB CHEMISTRY METHOD 07/09/2024 5:12 PM [facility] CO2 30 21 - 32 mmol/L LAB CHEMISTRY METHOD 07/09/2024 5:12 PM [facility] Anion Gap 6 3 - 11 LAB CHEMISTRY METHOD 07/09/2024 5:12 PM [facility] Glucose 105(H) 70 - 100 mg/dL LAB CHEMISTRY METHOD 07/09/2024 5:12 PM [facility] BUN 14 5 - 25 mg/dL LAB CHEMISTRY METHOD 07/09/2024 5:12 PM [facility] Creatinine 1.25 0.70 - 1.30 mg/dL LAB CHEMISTRY METHOD 07/09/2024 5:12 PM [facility] eGFR 65 >=60 mL/min/1. 73m2 LAB CHEMISTRY METHOD 07/09/2024 5:12 PM [facility] Comment:Calculation based on the Chronic Kidney Disease Epidemiology Collaboration (CKD-EPI) equation refit without adjustment for race. BUN/Creatinine Ratio 11.2 LAB CHEMISTRY METHOD 07/09/2024 5:12 PM [facility] Calcium 9.7 8.5 - 10.5 mg/dL LAB CHEMISTRY METHOD 07/09/2024 5:12 PM [facility] AST (SGOT) 26 10 - 42 unit/L LAB CHEMISTRY METHOD 07/09/2024 5:12 PM [facility] ALT (SGPT) 25 10 - 60 unit/L LAB CHEMISTRY METHOD 07/09/2024 5:12 PM [facility] Alkaline Phosphatase 92 42 - 121 unit/L LAB CHEMISTRY METHOD 07/09/2024 5:12 PM [facility] Total Protein 8.3(H) 6.0 - 8.0 g/dL LAB CHEMISTRY METHOD 07/09/2024 5:12 PM [facility] Albumin 4.0 3.2 - 5.0 g/dL LAB CHEMISTRY METHOD 07/09/2024 5:12 PM [facility] Total Bilirubin 0.7 0.0 - 1.4 mg/dL LAB CHEMISTRY METHOD 07/09/2024 5:12 PM [facility] Blood Venous blood specimen / Unknown Venipuncture / Unknown 07/09/2024 1:09 PM EST 07/09/2024 1:09 PM EST Dario Nj MD LAB BLOOD ORDERABLES Final Resul t [facility] [address] [place] [address], * Depression Screening (07/15/2023) Depression Screening abstracted Kiesha Provider HEALTH MAINTENANCE Final Result * (ABNORMAL) Lipid panel (07/02/2023) LDL/HDL Ratio 3 0 - 4 Triglycerides 105 0 - 150 mg/dL Cholesterol 228(A) 0 - 200 mg/dL HDL 91 >=40 mg/dL LDL Cholesterol 116(A) 0 - 100 mg/dL Blood Venous blood specimen / Unknown Historical Provider LAB BLOOD ORDERABLES Petra l Result * Hepatitis C Screening (10/02/2019) Hepatitis C Screening abstracted Historical Provider HEALTH MAINTENANCE Final Result from Last 3 Months or Most Recently Relevant to Health Maintenance Insurance [place]ICA[place] - [place] Care Teams Construction And Maintenance Inspector Relationship Specialty Start Date End Date Dario Nj MD [address] [place] [address] PCP - General 07/02/1999
--- OUTSIDE RECORDS SUMMARY | 2025-07-14 18:49 | XMS_ITS | Clinical Summary ---
Author Organization [facility] Address [address] [place] [address] Care Team Providers Care Rn Surgery Icu Name Role Phone Nickolas Mobley NP Primary Care Provide r Allergies No known active allergies Medications atenoloL (TENORMIN) 25 mg tablet Take 25 mg by mouth once a day. 2 Active buPROPion SR (WELLBUTRIN SR) 200 mg tablet Take 200 mg by mouth 2 times a day. 2 Active omeprazole (PriLOSEC) 20 mg capsule Take 20 mg by mouth once a day. 2 Active traZODone (DESYREL) 100 mg tablet Take 200 mg by mouth nightly as needed. 2 Active escitalopram (LEXAPRO) 20 mg tablet Take 20 mg by mouth once a day. Active multivitamin capsule Take 1 capsule by mouth once a day. Active vitamin B complex capsule Take 1 capsule by mouth once a day. Active LORazepam (ATIVAN) 0.5 mg tablet Take 1 tablet (0.5 mg total) by mouth nightly as needed for anxiety. 2 Active Ventolin HFA 90 mcg/actuation inhaler SMARTSI Puff(s) By Mouth Every 4 Hours PRN 4 Active amLODIPine (NORVASC) 5 mg tablet Take 5 mg by mouth once a day. 5 Active tirzepatide 10 mg/0.2 mL syringe Inject 10 mg under the skin once. 5 Active milk thist seed/artichoke leaf (ARTICHOKE PREMIUM EXTRACT ORAL) Take 1 capsule by mouth daily. 5 Active acetaminophen (TYLENOL) 325 mg tablet Take 2 tablets (650 mg total) by mouth every 6 hours. 5 Active polyethylene glycol 3350 (MIRALAX) 17 gram packet Take 1 packet (17 g total) by mouth daily as needed for constipation. Mix powder in 4 to 8 oz of water, juice, coffee, or tea prior to administration. Active senna (SENOKOT) 8.6 mg tablet Take 2 tablets (17.2 mg total) by mouth nightly. Active diclofenac sodium 1 % kit Apply 1 Application topically to the affected area as needed (pain). Not to hip Active lisinopriL (PRINIVIL,ZESTR IL) 10 mg tablet Take 3 tablets (30 mg total) by mouth once a day. May resume in 1 week if BP>125/80 5 Active apixaban (ELIQUIS) 2.5 mg tablet Take 1 tablet (2.5 mg total) by mouth every 12 hours. 60 tablet 2 5 08/09/20 25 Active Additional Information Patient not taking.Reported on 07/07/2025 naloxone HCl (Narcan) 4 mg/actuation nasal spray Administer 0.1 mL (4 mg total) into affected nostril(s) as needed (Unresponsivenes s with a suspected overdose). Instill the contents of 1 unit intranasally for suspected opioid overdose. Repeat after 3 minutes if no or minimal response. 2 each 1 5 Active Additional Information Patient not taking.Reported on 07/07/2025 amoxicillin (AMOXIL) 500 mg capsule Take all 4 tablets 1 hour prior to dental work 4 capsule 3 Active Active Problems Problem Noted Date Diagnosed [...] Encounters Date Type Department Care Team Description 07/07/2025 2:00 PM EST Follow-Up [facility] [address] [place] [address] [phone] Emanuel Byrne MD Aftercare following right hip joint replacement surgery (Primary Dx) 06/08/2025 1:00 PM EDT Follow-Up [facility] [address] [place] [address] [phone] BonyEmanuel PA Aftercare following right hip joint replacement surgery (Primary Dx) 06/08/2025 12:12 PM EDT - 06/08/2025 11:59 PM EDT Hospital Encounter [facility] Xray [address] [place] [address] 48113 Aftercare following right hip joint replacement surgery Discharge Disposition: Home or Self Care () 05/11/2025 12:48 PM EDT Anesthesia Event [facility] Operating Room [address] [place] [address] [phone] Manju Philip MD Boyd, Ryan, CRNA 05/11/2025 12:40 PM EDT - 05/11/2025 3:40 PM EDT Surgery [facility] Operating Room [address] [place] [address] [phone] Emanuel Byrne MD Right Total Hip Replacement [42356 (CPT )] 05/11/2025 10:40 AM EDT - 05/11/2025 8:32 PM EDT Hospital Encounter [facility] Operating Room [address] [place] [address] [phone] Emanuel Byrne MD Primary osteoarthritis of right hip Discharge Disposition: Left Against Medical Advice () 05/07/2025 Documentation [facility] [address] [place] [address] Erica Redmond NP 05/07/2025 Orders Only [facility] [address] [place] [phone] Erica Redmond NP Hyponatremia (Primary Dx) 05/07/2025 Results Follow-Up [facility] [address] [facility] [address] [place] [address] Ricardo Gutierrez PA 04/14/2025 9:09 AM EDT - 04/14/2025 11:59 PM EDT Hospital Encounter [facility] Xray [address] [place] [address] 07941 Emanuel Byrne MD Primary osteoarthritis of right hip Discharge Disposition: Home or Self Care () 04/14/2025 9:00 AM EDT Follow-Up [facility] [address] [place] [address] [phone] Emanuel Byrne MD Primary osteoarthritis of right [...] Care Team (Late st Contact Info) Description 05/04/2026 1:00 PM EDT Follow-Up [facility] [address] [place] [address] [phone] Emaneul Byrne MD [address] [place] [address] [phone] Health Maintenance Due Date Last Done Comments [...] of Health Annual Screening 09/02/2024 COVID-19 Vaccine ( season) 2025 11/11/2020, 10/14/2020 [...] this topic Medical Devices Implanted Type Area Project Manager/Design Manager Device Identifier Shelf Expiration Date Model / Serial / Lot Shell Acetabular Size F 3 Hole Sterile 54mm G7 - [id number] Implanted:Qty: 1 on 08/14/2022 by Emanuel Byrne MD at [facility] Implant Left: Hip Slime 04/24/2032 [id number] / / [id number] Bearing Highly Crosslinked Polyethylene Vitamin E Dual Mobility 88fhs76mn Size F - [id number] Implanted:Qty: 1 on 08/14/2022 by Emanuel Byrne MD at [facility] Implant Left: Hip Slime 03/13/2027 [id number] / / [id number] Liner Acetabular Dual Mobility [place] Chrome Sterile Latex Free Size F 44mm G7 - [id number] Implanted:Qty: 1 on 08/14/2022 by Emanuel Byrne MD at [facility] Implant Left: Hip Slime 05/02/2032 [id number] / / [id number] Stem Femoral Standard Full Proximal Profile [id number] Type 1 Echo - [id number] Implanted:Qty: 1 on 08/14/2022 by Emanuel Byrne MD at [facility] Implant Left: Hip Slime 06/01/2032 [id number] / / [id number] Shell Acetabular Size F 3 Hole Sterile 54mm G7 - [id number] Implanted:Qty: 1 on 05/11/2025 by Emanuel Byrne MD at [facility] Implant Right: Hip Slime 09/09/2034 [id number] / / [id number] Bearing Highly Crosslinked Polyethylene Vitamin E Dual Mobility 23bqq79ew Size F - [id number] Implanted:Qty: 1 on 05/11/2025 by Emanuel Byrne MD at [facility] Implant Right: Hip Slime 08/05/2029 [id number] / / [id number] Liner Acetabular Dual Mobility Cocr Sterile Latex Free Size F 44mm G7 - [id number] Implanted:Qty: 1 on 05/11/2025 by Emanuel Byrne MD at [facility] Implant Right: Hip Slime 12/29/2034 [id number] / / [id number] Stem Femoral Standard Full Proximal Profile 38vkk835cm Type 1 Echo - [id number] Implanted:Qty: 1 on 05/11/2025 by Emanuel Byrne MD at [facility] Implant Right: Hip Slime 12/21/2034 [id number] / / [id number] Head Femoral Ceramic 28/0mm Biolox - [id number] Implanted:Qty: 1 on 05/11/2025 by Emanuel Byrne MD at [facility] Implant Right: Hip Slime 10/30/2034 [id number] / / [id number] Screw Acetabular Self-Tapping 6.1bhp76es Trilogy - [id number] Implanted:Qty: 1 on 08/14/2022 by Emanuel Byrne MD at [facility] Screw Left: Hip Slime 12/24/203155-6375-778- 30 / / [id number] Screw Acetabular Self-Tapping 6.3fal25px Trilogy - [id number] Implanted:Qty: 1 on 08/14/2022 by Emanuel Byrne MD at [facility] Screw Left: Hip Slime 04/06/203240-7372-787- 20 / / [id number] Screw Acetabular Self-Tapping 6.7joy27tk Trilogy - [id number] Implanted:Qty: 1 on 05/11/2025 by Emanuel Byrne MD at [facility] Screw Right: Hip Slime 11/18/203414-5985-309- 20 / / [id number] Screw Acetabular Self-Tapping 6.8eiu16pr Trilogy - [id number] Implanted:Qty: 1 on 05/11/2025 by Emanuel Byrne MD at [facility] Screw Right: Hip Slime 01/14/203449-8477-097- 30 / / [id number] Biolox Delta Ceramic Femoral Head , 28mm,+3mmneck Implanted:Qty: 1 on 08/14/2022 by Emanuel Byrne MD at [facility] Left: Hip [employer] 059-2640 / / [id number] Procedures * Due to [place] state law, this organization might not be sharing negative HIV tests. Procedure Name Priority Date/Time Associated Diagnosis Comments XR HIP RIGHT 2 VIEWS AND 1 VIEW PELVIS Routine 06/08/2025 12:22 PM EDT Aftercare following right hip joint replacement surgery XR HIP RIGHT 1 VIEW W PELVIS Routine 05/11/2025 4:10 PM EDT POCT GLUCOSE Routine 05/11/2025 4:05 PM EDT CBC Routine 05/11/2025 3:56 PM EDT BASIC METABOLIC PANEL Routine 05/11/2025 3:56 PM EDT TISSUE EXAM Routine 05/11/2025 1:42 PM EDT Primary osteoarthritis of right hip IA TOTAL HIP ARTHROPLASTY 05/11/2025 12:33 PM EDT [...] Last 3 Months Results * Due to [place] state law, this organization might not be sharing negative HIV tests. * XR Hip Right 2 Views And 1 View Pelvis (06/08/2025 12:22 PM EDT) Only the most recent of2 resultswithin the time period is included. Anatomical Region Laterality Modality Body, Pelvis, Hip Right Computed Radio graphy 06/11/2025 4:18 PM EDT Impressions 06/11/2025 4:21 PM EDT Bilateral total hip arthroplasties. No hardware complication. If this radiology report contains a blank impression section, it is an incomplete radiology report. Please contact the interpreting radiologist or applicable radiology division as soon as possible to obtain the completed interpretation. Workstation ID: [id number] Narrative 06/11/2025 4:21 PM EDT COMPARISON: 05/11/2025 FINDINGS Bilateral total hip arthroplasties. Screwed acetabular and noncemented components appear intact. Joints are congruent. No radiographic evidence of hardware- related complication. Similar degenerative arthropathy of the sacroiliac joints and pubic symphysis. Resulting Agency Comment [id number] Procedure Note Ricardo Mora, DO - 06/11/2025 COMPARISON: 05/11/2025 FINDINGS Bilateral total hip arthroplasties. Screwed acetabular and noncementedcomponents appear intact. Joints are congruent. No radiographic evidenceof hardware-related complication. Similar degenerative arthropathy of thesacroiliac joints and pubic symphysis. IMPRESSION: Bilateral total hip arthroplasties. No hardware complication. If this radiology report contains a blank impression section, it is anincomplete radiology report. Please contact the interpreting radiologistor applicable radiology division as soon as possible to obtain thecompleted interpretation. Workstation ID: [id number] us Emanuel Byrne MD IMG XR PROCEDURES Final Res ult * X-Ray Hip Right 1 View with [...] to obtain the completed interpretation. Workstation ID: [id number] Narrative 05/11/2025 5:53 PM EDT COMPARISON: 04/14/2025 Resulting Agency Comment [id number] Procedure Note Adan Alfredo MD - 05/11/2025 [...] possible to obtain thecompleted interpretation. Workstation ID: [id number] us Emanuel Byrne MD IMG XR PROCEDURES Final Res ult * (ABNORMAL) POCT Glucose, interfaced (05/11/2025 4:05 PM EDT) Only the most recent of2 resultswithin the time period is included. [facility] Glucose, POCT 105(H) 70 - 99 mg/dL 05/11/2025 4:07 PM EDT [facility] Comment: The visual c developer has not determined the efficacy of this test in Critically ill patients. [facility] defines Critically ill patients for the [...] POCT ORDERABLES - DEVIC E Final Result [facility] [address] [place] [address], [place] * (ABNORMAL) CBC (05/11/2025 3:56 PM EDT) WBC 16.8(H) 3.8 - 10.8 10*3/uL 05/11/2025 4:11 PM EDT [facility] RBC 3.62(L) 4.20 - 5.80 10*6/uL 05/11/2025 4:11 PM EDT [facility] Hemoglobin 12.5(L) 13.2 - 17.1 g/dL 05/11/2025 4:11 PM EDT [facility] Hematocrit 36.7(L) 38.5 - 50.0 % 05/11/2025 4:11 PM EDT [facility] MCV 101.4(H) 80.0 - 100.0 fL 05/11/2025 4:11 PM EDT [facility] MCH 34.5(H) 27.0 - 33.0 pg 05/11/2025 4:11 PM EDT [facility] MCHC 34.1 32.0 - 36.0 g/dL 05/11/2025 4:11 PM EDT [facility] RDW 11.9 11.0 - 15.0 % 05/11/2025 4:11 PM EDT [facility] Platelets 283 140 - 400 10*3/uL 05/11/2025 4:11 PM EDT [facility] MPV 8.2 7.5 - 12.5 fL 05/11/2025 4:11 PM EDT [facility] Blood Structure of peripheral vein / Unknown Venipuncture / Unknown 05/11/2025 3:56 PM EDT 05/11/2025 4:02 PM EDT us Emanuel Byrne MD LAB BLOOD ORDERABLES Final Result [facility] [address] [place] [address], * (ABNORMAL) Basic Metabolic Panel (05/11/2025 3:56 PM EDT) Only the most recent of3 resultswithin the time period is included. NA 131(L) 135 - 145 mmol/L 05/11/2025 4:37 PM EDT [facility] K 4.4 3.5 - 5.3 mmol/L 05/11/2025 4:37 PM EDT [facility] Cl 96(L) 98 - 107 mmol/L 05/11/2025 4:37 PM EDT [facility] CO2 26 22 - 32 mmol/L 05/11/2025 4:37 PM EDT [facility] BUN 13 7 - 23 mg/dL 05/11/2025 4:37 PM EDT [facility] Creatinine 1.54(H) 0.60 - 1.30 mg/dL 05/11/2025 4:37 PM EDT [facility] Glucose 126(H) 65 - 99 mg/dL 05/11/2025 4:37 PM EDT [facility] Calcium 8.7 8.6 - 10.5 mg/dL 05/11/2025 4:37 PM EDT [facility] Anion Gap 9 5 - 15 05/11/2025 4:37 PM EDT [facility] eGFR 50(L) >=60 mL/min/1 .73m2 05/11/2025 4:37 PM EDT [facility] Comment:The estimated glomer ular [...] Byrne MD LAB BLOOD ORDERABLES Final Result [facility] [address] [place] [phone], * Tissue Exam (05/11/2025 1:42 PM EDT) Final Diagnosis Bone, Right Femoral Head, Right Total Hip Replacement: - Osteoarthritis with bony eburnation. [facility] [[email or web address]] MANUAL 05/14/2025 3:25 PM EDT [facility] at 1525 EDT Clinical History Pre-op diagnosis: Primary osteoarthritis of right hip [M16.11] [facility] [[email or web address]] MANUAL 05/14/2025 3:25 PM EDT [facility] Gross Description 1. Femoral [...] red-figueroa to brown-red, firm, lobulated tissue fragments. [employer] Worker sections are submitted as follows: 1A: Femoral head to include eburnation and subchondral cyst 1B: Additional fragments [facility] [[email or web address]] MANUAL 05/14/2025 3:25 PM EDT [employer] [facility] Gross Description User Grossing complete by Char Jackson on 05/12/2025 11:57 AM [facility] [[email or web address]] MANUAL 05/14/2025 3:25 PM EDT [employer] [facility] Embedded Images [facility] [[email or web address]] MANUAL 05/14/2025 3:25 PM EDT [employer] [facility] Resulting Agency Case was signed out at [facility], Department of Pathology, [employer] 3 CLIA [id number] [facility] [[email or web address]] MANUAL 05/14/2025 3:25 PM EDT [employer] [facility] Report Header Surgical Pathology Report Case: [id number] Authorizing Provider: Emanuel Byrne MD Collected: 05/11/2025 1342 Ordering Location: [facility] Received: 05/11/[address] [place] [address] Operating Room Pathologist: Carmenza Matthews MD Specimen: Femoral Head, Right, Right Femoral Head 05/14/2025 3:25 PM EDT [employer] [facility] Bone Structure of head of right femur / Unknown 05/11/2025 1:42 PM EDT 05/11/2025 4:47 PM EDT Comment:Pre-op diagnosis: Primary osteoarthritis of right hip [M16.11] us Emanuel Byrne MD LAB PATHOLOGY/CYTOLOGY TONYA SMALL Final Result [employer] [facility] [address] [place] [address], [facility] [address] [place] [phone], [place] * X-Ray Chest 2 Views (05/05/2025 10:35 [...] to obtain the completed interpretation. Workstation ID: [id number] Narrative 05/05/2025 2:19 PM EDT COMPARISON: 06/30/2024 FINDINGS AND Resulting Agency Comment [id number] Procedure Note Pedro Red MD - 05/05/2025 COMPARISON: 06/30/2024 FINDINGS AND IMPRESSION: No change. Negative. Heart normal. Lungs clear. If this radiology report contains a blank impression section, it is anincomplete radiology report. Please contact the interpreting radiologistor applicable radiology division as soon as possible to obtain thecompleted interpretation. Workstation ID: [id number] Ann Lazar NP IMG XR PROCEDURES Final Res ult * ECG 12 lead For Preop? Yes (05/05/2025 9:39 AM EDT) Ventricular Rate EKG 71 BPM MUSE EKG Atrial Rate 71 BPM MUSE EKG IA Interval 192 ms MUSE EKG QRS Interval 96 ms MUSE EKG QT Interval 416 ms MUSE EKG QTC Interval 452 ms MUSE EKG P [place] -2 degrees MUSE EKG R [place] 37 degrees MUSE EKG T Wave [place] 39 degrees MUSE EKG 05/05/2025 9:39 AM EDT 05/06/2025 10:18 PM EDT Impressions MUSE EKG - 05/06/2025 10:18 PM EDT NORMAL SINUS RHYTHM NORMAL ECG WHEN COMPARED WITH ECG OF 30-Jun-2024 08:51, NO SIGNIFICANT CHANGE WAS FOUND Confirmed by Leonela Parham ([id number]) on 05/06/2025 10:18:15 PM Narrative Procedure Note Leonela Parham MD - 05/06/2025 IMPRESSION: NORMAL SINUS RHYTHM NORMAL ECG WHEN COMPARED WITH ECG OF 30-Jun-2024 08:51, NO SIGNIFICANT CHANGE WAS FOUND Confirmed by Leonela Parham ([id number]) on 05/06/2025 10:18:15 PM Ann Lazar REPAIRER CYLINDER HEADS ECG ORDERABLES Final Resul t Performing Organization Address City/[facility]/ZIP Co de Phone Number MUSE EKG * Velez Top, Urine (05/05/2025 9:30 AM EDT) Pathologist [facility] Extra Tube Hold for add-ons. 05/05/2025 2:05 PM EDT [employer] [facility] Comment:Auto resulted. Urine Urine specimen collection, clean catch / Unknown Non-Blood Collection / Unknown 05/05/2025 9:30 AM EDT 05/05/2025 1:22 PM EDT Ann Lazar NP LAB URINE ORDERABLES Final Result Performing Organization Address [facility] de Phone Number [facility] [address] [place] [address] * (ABNORMAL) Urinalysis W/Reflex to Microscopic & Culture (05/05/2025 9:30 AM EDT) Color, Urine Light Yellow Colorless, Light Yellow, Yellow, Dark Yellow 05/05/2025 1:37 PM EDT [employer] [facility] Clarity, Urine Clear Clear 05/05/2025 1:37 PM EDT [employer] [facility] Specific [place], Urine 1.013 <1.030 05/05/2025 1:37 PM EDT [employer] [facility] pH, Urine 6.0 4.6 - 8.0 05/05/2025 1:37 PM EDT [employer] [facility] [facility] Protein, Urine Negative Negative 05/05/2025 1:37 PM EDT [employer] [facility] Glucose, Urine Normal Normal 05/05/2025 1:37 PM EDT [employer] [facility] Ketones, Urine Negative Negative 05/05/2025 1:37 PM EDT [facility] Bilirubin, Urine Negative Negative 05/05/2025 1:37 PM EDT [facility] Blood, Urine Negative Negative 05/05/2025 1:37 PM EDT [facility] Nitrite, Urine Negative Negative 05/05/2025 1:37 PM EDT [facility] Urobilinogen, Urine Normal Normal 05/05/2025 1:37 PM EDT [facility] Leukocyte Esterase, Urine Trace(A) Negative 05/05/2025 1:37 PM EDT [facility] WBC, Urine 2 0 - 2 /HPF 05/05/2025 1:37 PM EDT [facility] RBC, Urine 1 0 - 2 /HPF 05/05/2025 1:37 PM EDT [facility] [facility] Hyaline Casts, Urine 0 0 - 2 /LPF 05/05/2025 1:37 PM EDT [facility] Squamous Epithelial Cells, Urine <1 /HPF 05/05/2025 1:37 PM EDT [employer] [facility] Bacteria, Urine None Seen None /HPF /HPF 05/05/2025 1:37 PM EDT [facility] Urine Urine specimen collection, clean catch / Unknown Non-Blood Collection / Unknown 05/05/2025 9:30 AM EDT 05/05/2025 1:22 PM EDT us Ann Lazar NP LAB URINE ORDERABLES Final Result [facility] [address] [place] [address], * MRSA/S aureus PCR, Throat (05/05/2025 9:30 AM EDT) MRSA PCR, Throat NOT DETECTED NOT DETECTED 05/06/2025 3:01 AM EDT [employer] [facility] S. aureus PCR, Throat NOT DETECTED NOT DETECTED 05/06/2025 3:01 AM EDT [employer] [facility] Comment: The analytical performance characteristics of this assay have been determined by [employer]. The modifications have not been cleared or approved by the FDA. This assay has been validated pursuant to the CLIA regulations and is used for clinical purposes. Swab Structure of anterior region of neck / Unknown Non-Blood Collection / Unknown 05/05/2025 9:30 AM EDT 05/05/2025 1:22 PM EDT Sabrina ANYI CARLOS - 05/06/2025 3:01 AM EDT [facility] Received Date:[id number] us Ann Lazar NP LAB BODY FLUIDS AND STOOLS ORDERABLES Final Result ANY[facility] CARLOS [address] [facility] [address]rd Floor, [place] [address], [employer] [facility] [address] [facility] [address], [place] [address], [place] [phone] * MRSA/S aureus PCR, Nasal (05/05/2025 9:30 AM EDT) MRSA PCR, Nasal NOT DETECTED NOT DETECTED 05/06/2025 3:01 AM EDT [employer] [facility] S. aureus PCR, Nasal NOT DETECTED NOT DETECTED 05/06/2025 3:01 AM EDT [employer] [facility] Swab Nasal structure / Unknown Non-Blood Collection / Unknown 05/05/2025 9:30 AM EDT 05/05/2025 1:22 PM EDT Sabrina ANYI CARLOS - 05/06/2025 3:01 AM EDT [facility] Received Date:[id number] us Ann Lazar NP LAB BODY FLUIDS AND STOOLS ORDERABLES Final Result [facility] [address] [facility] [address]rd Floor, [place] [address], [place] [phone] [employer] [facility] [address] [facility] [address], [place] [address], [place] [phone] * (ABNORMAL) CBC Auto Differential (05/05/2025 9:30 AM EDT) WBC 8.1 3.8 - 10.8 10*3/uL 05/05/2025 11:32 AM EDT [employer] [facility] RBC 3.61(L) 4.20 - 5.80 10*6/uL 05/05/2025 11:32 AM EDT [employer] [facility] Hemoglobin 12.3(L) 13.2 - 17.1 g/dL 05/05/2025 11:32 AM EDT [employer] [facility] Hematocrit 34.7(L) 38.5 - 50.0 % 05/05/2025 11:32 AM EDT [employer] CL[facility]ICAL PATHOLOGY LABORATORY MCV 96.1 80.0 - 100.0 fL 05/05/2025 11:32 AM EDT [facility] CLINICAL PATHOLOGY LABORATORY MCH 34.1(H) 27.0 - 33.0 pg 05/05/2025 11:32 AM EDT [facility]ICAL PATHOLOG[facility] LABORATORY MCHC 35.4 32.0 - 36.0 g/dL 05/05/2025 11:32 AM EDT [facility] LAB[facility] RDW 11.7 11.0 - 15.0 % 05/05/2025 11:32 AM EDT [facility] LAB[facility] Platelets 286 140 - 400 10*3/uL 05/05/2025 11:32 AM EDT [facility] LAB[facility] MPV 9.3 7.5 - 12.5 fL 05/05/2025 11:32 AM EDT [facility] LAB[facility] Neutrophil % 62.1 % 05/05/2025 11:32 AM EDT [facility] CLINICAL PATHOLOGY LABORATORY Immature Grans % 0.5 0.0 - 0.9 % 05/05/2025 11:32 AM EDT [facility] [employer] [facility] [facility] CLINICAL PATHOLOGY LABORATORY Lymphocyte % 23.6 % 05/05/2025 11:32 AM EDT [facility] [employer] [facility] CLINICAL PATHOLOGY LAB[facility] Monocyte % 9.5 % 05/05/2025 11:32 AM EDT [facility] PATHOLOG[facility] LABORAT[facility] Eosinophil % 3.4 % 05/05/2025 11:32 AM EDT [facility] LAB[facility] Basophil % 0.9 % 05/05/2025 11:32 AM EDT [facility] PATH[facility] LAB[facility] Neutrophil # 5.04 1.50 - 7.80 10*3/uL 05/05/2025 11:32 AM EDT [facility] CLINICAL PATHOLOGY LABORATORY Immature Grans # 0.04(H) <=0.03 10*3/uL 05/05/2025 11:32 AM EDT [facility] CLINICAL PATHOLOGY LABORATORY Lymphocyte # 1.90 0.85 - 3.90 10*3/uL 05/05/2025 11:32 AM EDT [facility] PATHOLOG[facility] LABORATORY Monocyte # 0.80 0.20 - 0.95 10*3/uL 05/05/2025 11:32 AM EDT [facility]ICAL PATHOLOGY LABORATORY Eosinophil # 0.30 0.02 - 0.50 10*3/uL 05/05/2025 11:32 AM EDT [facility] PATHOLOG[facility] LABORATORY Basophil # 0.10 0.00 - 0.20 10*3/uL 05/05/2025 11:32 AM EDT [facility] PATHOLOG[facility] LABORATORY nRBC % 0.0 /100 WBCs 05/05/2025 11:32 AM EDT [facility] CLINICAL PATHOLOGY LABORATORY nRBC # <0.01 <0.01 10*3/uL 05/05/2025 11:32 AM EDT [facility] CLINICAL PATHOLOG[facility] LABORATORY Blood Structure of peripheral vein / Unknown Venipuncture / Unknown 05/05/2025 9:30 AM EDT 05/05/2025 11:08 AM EDT Ann Lazar NP LAB BLOOD ORDERABLES Final Result Performing Organization Address [facility]/ZIP Co de Phone Number [facility] [address] [place] [address], * PTT (05/05/2025 9:30 AM EDT) aPTT 27.6 23.0 - 32.0 Seconds 05/05/2025 11:45 AM EDT [facility] Comment: Current PTT reagent is not sensitive to detect all Lupus Anticoagulant (LA) Inhibitor Cases. If a LA is suspected, please order a Lupus Anticoagulation w/ Reflex Test which is performed at [facility] in [place], [place]. Blood Structure of peripheral vein / Unknown Venipuncture / Unknown 05/05/2025 9:30 AM EDT 05/05/2025 11:08 AM EDT Ann Lazar NP LAB BLOOD ORDERABLES Final Result Performing Organization Address City/[facility]/ZIP Co de Phone Number [facility] [address] [place] [address], * Protime-INR (05/05/2025 9:30 AM EDT) PT 10.8 9.6 - 12.4 Seconds 05/05/2025 11:45 AM EDT [facility] CL[facility]ICAL PATHOLOG[facility] LABORATORY INR 1.0 0.9 - 1.1 05/05/2025 11:45 AM EDT [facility] Comment:The optimal therapeu tic INR range for patients treated with Vitamin K antagonists (VKAS, e.g., Warfarin) is 2.0 to 3.5. Discuss the desired range with your doctor/care team. Blood Structure of peripheral vein / Unknown Venipuncture / Unknown 05/05/2025 9:30 AM EDT 05/05/2025 11:08 AM EDT Ann Lazar NP LAB BLOOD ORDERABLES Final Result [facility] [address] [place] [address], * Type and Screen (05/05/2025 9:30 AM EDT) ABO Blood Type B 05/05/2025 5:09 PM EDT [facility] Type Positive 05/05/2025 5:09 PM EDT [facility] Expiration Date/Time 2025-05-14 23:59 05/05/2025 5:09 PM EDT [facility] Antibody Screen Negative 05/05/2025 5:09 PM EDT [facility] Blood Structure of peripheral vein / Unknown Venipuncture / Unknown 05/05/2025 9:30 AM EDT 05/05/2025 11:00 AM EDT Ann Lazar NP LAB BLOOD BANK TEST ORDERAB LES Final Result Performing Organization Address [facility] Co de Phone Number [facility] [address] [place] [address], * Urine Culture, Routine (05/05/2025 9:30 AM EDT) Culture No growth 05/06/2025 3:26 PM EDT [employer] [facility] Urine Urine specimen collection, clean catch / Unknown Non-Blood Collection / Unknown 05/05/2025 9:30 AM EDT 05/05/2025 1:34 PM EDT Sabrina CARLOS - 05/06/2025 3:26 PM EDT [facility] Received Date:[id number] MICRO NUMBER: [id number] SPECIMEN QUALITY: Adequate SOURCE: URINE CLEAN CATCH STATUS: FINAL Ann Lazar NP LAB MICROBIOLOGY - GENERAL ORDERABLES Final Result [facility], [place] [address], [place] [phone] [facility] [address], [place] [address], * Prealbumin (05/05/2025 9:30 AM EDT) Prealbumin 26 18 - 40 mg/dL 05/05/2025 11:44 AM EDT [facility] CLINICAL PATHOLOGY LABORATORY Blood Structure of peripheral vein / Unknown Venipuncture / Unknown 05/05/2025 9:30 AM EDT 05/05/2025 11:08 AM EDT Ann Lazar NP LAB BLOOD ORDERABLES Final Result [facility] CL[facility]ICAL PATH[facility] LABORATORY [address] [place] [address], * Hemoglobin A1c (05/05/2025 9:30 AM EDT) Hemoglobin A1C 4.9 <5.7 % 05/06/2025 10:14 AM EDT [facility] Comment: For the purpose of screening for the presence of diabetes: <5.7% Consistent with the absence of diabetes 5.7-6.4% Consistent with increased risk for diabetes (prediabetes) > or =6.5% Consistent with diabetes This assay result is consistent with a decreased risk of diabetes. Currently, no consensus exists regarding use of hemoglobin A1c for diagnosis of diabetes in children. According to [place] Diabetes Association (ADA) guidelines, hemoglobin A1c <7.0% represents optimal control in non- diabetic patients. Different metrics may apply to specific patient populations. Standards of Medical Care in Diabetes(ADA). eAG (MG/DL) 94 mg/dL 05/06/2025 10:14 AM EDT [facility] eAG (MMOL/L) 5.2 mmol/L 05/06/2025 10:14 AM EDT [facility] Blood Structure of peripheral vein / Unknown Venipuncture / Unknown 05/05/2025 9:30 AM EDT 05/05/2025 11:09 AM EDT Narrative [facility] - 05/06/2025 10:14 AM EDT [facility] Received Date:[id number] Ann Lazar NP LAB BLOOD ORDERABLES Final Result [facility] [place] [address] [facility] [address], [place] [address], [place] [phone] [employer] [facility] [address], [place] [address], [place] [phone] * (ABNORMAL) Comprehensive metabolic panel (05/05/2025 9:30 AM EDT) NA 126(L) 135 - 145 mmol/L 05/05/2025 11:44 AM EDT [facility] CLINICAL PATHOLOGY LABORATORY K 4.3 3.5 - 5.3 mmol/L 05/05/2025 11:44 AM EDT [facility] PATHOLOG[facility] LABORAT[facility] Cl 88(L) 98 - 107 mmol/L 05/05/2025 11:44 AM EDT [facility] LAB[facility] CO2 25 22 - 32 mmol/L 05/05/2025 11:44 AM EDT [facility] LAB[facility] Anion Gap 13 5 - 15 05/05/2025 11:44 AM EDT [facility] LAB[facility] Glucose 90 65 - 99 mg/dL 05/05/2025 11:44 AM EDT [facility] LAB[facility] Creatinine 1.30 0.60 - 1.30 mg/dL 05/05/2025 11:44 AM EDT [facility] PATHOLOG[facility] LABORATORY Calcium 9.6 8.6 - 10.5 mg/dL 05/05/2025 11:44 AM EDT [facility] PATH[facility] LAB[facility]AT[facility] Total Protein 7.6 6.0 - 8.0 g/dL 05/05/2025 11:44 AM EDT [facility] LAB[facility] Albumin 4.1 3.5 - 5.2 g/dL 05/05/2025 11:44 AM EDT [facility] LABORAT[facility] Bilirubin, Total 0.5 0.2 - 1.2 mg/dL 05/05/2025 11:44 AM EDT [email or web address] Alkaline Phosphatase 68 35 - 129 U/L 05/05/2025 11:44 AM EDT [facility] AST 26 10 - 40 U/L 05/05/2025 11:44 AM EDT [facility] ALT 19 10 - 40 U/L 05/05/2025 11:44 AM EDT [facility] BUN 14 7 - 23 mg/dL 05/05/2025 11:44 AM T [facility] eGFR 61 >=60 mL/min/1. 73m2 05/05/2025 11:44 AM T [facility] LAB[facility]AT[facility] Comment:The estimated glomer ular [...] - 4.2 g/dL 05/05/2025 11:44 AM EDT [facility] A/G Ratio 1.2(L) 1.5 - 3.0 05/05/2025 11:44 AM T [facility] Blood Structure of peripheral vein / Unknown Venipuncture / Unknown 05/05/2025 9:30 AM EDT 05/05/2025 11:08 AM EDT Ann J [employer] RE[facility] LAB BLOOD ORDERABLES Final Result [facility] LAB[facility] [address] [place] [address], from Last 3 Months Insurance [employer] Advance Directives Documents on File Type Date Recorded 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
== END 2025-07-14 15:48 | disposition home or self-care (01) ==
LOC: HO.HMGAL 15:48
PROVIDERS: PCP Nurse Practitioner Family; Visit Provider Registered Nurse Emergency
DX: J30.89 Other allergic rhinitis (principal)
CPT/HCPCS: 95117; 95165